=== PATIENT | female | born 1935 | race Caucasian/White ===

== ENCOUNTER 2017-10-21 08:59 | Inpatient (IN) | payer MEDICARE ==
[2017-10-21] MEDS ORDERED: Ketorolac Tromethamine 30 MG/ML VIAL ONE (09:28)
--- NOTE | 2017-10-21 09:36 | RAD ---
RIGHT KNEE 2 VIEWS: HISTORY: Trauma. COMPARISON: None. FINDINGS: Periprosthetic fracture of the distal femur with varus angulation and impaction comminution. The pro ximal tibia appears to be intact. IMPRESSION: Comminuted periprosthetic fracture of distal femur. POS: OFF
--- NOTE | 2017-10-21 09:51 | RAD ---
PORTABLE CHEST: Date: 10/21/17 Time: 0940 hours HISTORY: Preoperative evaluation for femur fracture. FINDINGS: Comparison made with exam of 10/14/16. The heart size is enlarged. The lungs are well expanded without confluent areas of consolidation, pne umothorax, sarina pulmonary edema, or pleural effusions. There is mild prominence of pulmonary vascula rity, which was also seen on the previous study. A left-sided humeral prosthesis is again seen. IMPRESSION: Cardiomegaly. POS: LIZBETH
[2017-10-21] MEDS ORDERED: CEFAZOLIN/Water 2 GM/20 ML SYRINGE SLOW IVP SCH (10:15)
[2017-10-21] MEDS ORDERED: Adacel (T-DAP) 0.5 ML VIAL ONE (10:22)
[2017-10-21 10:23] LABS: Hemoglobin 12.5 g/dL (12.0-16.0); Mean Corpuscular Hemoglobin 25.1 pg (27.0-31.0); Mean Corpuscular Volume 84.4 fl (81.0-99.0); Red Blood Cell (RBC) Count 4.97 mill/uL (4.20-5.40); White Blood Cell (WBC) Count 14.6 thou/uL (4.8-10.8)
--- NOTE | 2017-10-21 10:25 | CON ---
DATE OF CONSULTATION: 10/21/2017 CONSULTING PHYSICIAN: Dr. Gio Dowell HISTORY OF PRESENT ILLNESS: She is a very pleasant female who was in her normal state of health toda y when she slipped and states she decided to kiss the floor. She denies any loss of consciousness, b ut sustained a right femur periprosthetic fracture. The pain is significant. She has no loss of sen sations in either extremity, but was unable to move after the fall. She was brought to the ER for th e above stated fracture. She is in mild distress right now due to pain, but has no other complaints of chest pain or shortness breath. She denies hitting her head and remembers the whole incident. PAST MEDICAL HISTORY: Positive for COPD, GERD, high cholesterol, hypertension and some mild chronic pain issues. ALLERGIES: FENTANYL, HYDROCODONE, MORPHINE, possibly TYLENOL. CURRENT MEDICATIONS: Aspirin, atorvastatin, Symbicort, clonidine, Colace, Lasix, hydralazine, hydroc hlorothiazide, lisinopril, metoprolol, multivitamin, Protonix, Klor-Con, omega 3 fatty acid/fish oil and other multivitamins. SOCIAL HISTORY: , nonsmoker, nondrinker, no illicit drug use. PAST SURGICAL HISTORY: Shoulder replacement, knee replacement, ankle fracture repair and also some s kin cancer lesions removed from the face. FAMILY HISTORY: Noncontributory. REVIEW OF SYSTEMS: Currently in no acute distress in regards to breathing or any chest pain. Compla ins of right leg pain. The rest of review of systems is negative. PHYSICAL EXAMINATION: GENERAL: Well-nourished female, alert, in moderate distress. Speech clear. Answers questions appro priately. Alert and oriented x3. HEENT: Normal exam. Currently, has O2 on. Face is symmetric. Tongue midline. NECK: Supple. Trachea midline. EXTREMITIES: Moving bilateral upper extremities well. Some bruising seen to the arms. Lower extrem ities; she does have a little bit of swelling to the right leg, but she has good sensations on bilate ral lower extremities. DP, PT pulses are intact. She is able to move that right lower extremity oka y, but it is quite painful in doing so. ASSESSMENT: Fall with a periprosthetic fracture to the right femur. PLAN: I spoke with the patient. She will need a femoral plate placed to align stabilize the fractur e. She understands the surgery and the risks and benefits as they have been explained and is amenabl e to go forth with surgery. She has seen Dr. Dowell in the past and would prefer him to do the surge ry. I have discussed with Dr. Dowell and he is able to add her on this afternoon. Her current n.p.o . status is from last night. She has just had a few sips with meds today. We will get the patient c onsented for surgery and antibiotics on board, get her fixed up today. Again she is agreeable with t he plan as it has been stated.
[2017-10-21 10:31] LABS: Anion Gap 12 mmol/L (10-20); BUN (Urea Nitrogen) 11 mg/dL (9.8-20.1); Calc. Creatinine Clearance 0 mL/min (70-130); Calcium 9.5 mg/dL (7.8-10.44); Carbon Dioxide 30 mmol/L (23-31); Chloride 103 mmol/L (98-107); Estimated GFR-MDRD Greater than 90; Glucose 134 mg/dL (83-110); Potassium 3.9 mmol/L (3.5-5.1); Sodium 141 mmol/L (136-145)
[2017-10-21 10:39] LABS: #Basophils 0.1 thou/uL (0.0-0.2); #Eosinphils 0.1 thou/uL (0.0-0.7); #Neutrophils 11.5 thou/uL (1.40-6.50); %Basophils 0.5 % (0.0-1.0); %Eosinophils 0.9 % (0.0-10.0); %Lymphocytes 13.8 % (21.0-51.0); %Monocytes 6.5 % (0.0-10.0); %Neutrophils 78.4 % (42.0-75.0); Anisocytosis SLIGHT = 6-15 cells (100X) (0-5/hpf); MDiff Complete? YES; Mean Corpuscular HGB CONC 29.8 g/dL (32.0-36.0); Mean Platelet Volume 9.1 fL (7.4-10.4); Platelet Count 231 thou/uL (130-400); RBC Distribution Width 16.1 % (11.5-14.5)
[2017-10-21] MEDS ORDERED: CEFAZOLIN/Water 2 GM/20 ML SYRINGE ONE (11:16)
--- NOTE | 2017-10-21 11:56 | HP ---
DATE OF ADMISSION: 10/21/2017 ADMITTING PHYSICIAN: John Guerra D.O. CONSULTING PHYSICIAN: Gio Dowell M.D. HISTORY OF PRESENT ILLNESS: Ms. Mauro is an 82-year-old female who was outside of her home and slipped down a ramp this morning. She complained of right knee pain and an abrasion on her right hand. She denied hitting her head or having LOC. She denied any other pain. She was transported to [facility] where workup in the ER identified a right femur periprosthetic fracture. She had a prior right knee surgery by Dr. Dowell. She has been hemodynamically stable and neurovascularly intact in all extremities. PAST MEDICAL HISTORY: COPD, GERD, high cholesterol, hypertension, chronic pain. PAST SURGICAL HISTORY: Right knee replacement, left shoulder replacement, facial skin cancer removal. SOCIAL HISTORY: Patient denies alcohol, drug or tobacco use. ALLERGIES: The patient is . LABORATORY DATA: Hematology: WBC 14.6, RBC 4.97, hemoglobin 12.5, hematocrit 41.9, platelets 231. Chemistry: Sodium 141, potassium 3.9, chloride 103, carbon dioxide 30, BUN 11, creatinine 0.60, glucose 134. DIAGNOSTIC IMAGING: Right knee x-ray comminuted periprosthetic fracture of the right knee. REVIEW OF SYSTEMS: General: No complaints of recent weight loss, chills, fever. HEENT: No complaints. Respiratory: Denies shortness of breath, cough. Cardiovascular: Denies chest pain, palpitations. Abdomen: Denies nausea, vomiting, diarrhea or constipation. Extremities: Complains of right knee pain. Neurologic: Denies headache, dizziness, weakness or sensory deficit. Skin: Denies rashes or any other changes to skin. Psychiatric: Denies any problems. PHYSICAL EXAMINATION: GENERAL: Well-nourished, well-developed female in no acute distress. HEENT: Normocephalic, atraumatic. Trachea midline. NECK: No neck tenderness. PULMONARY: Bilateral breath sounds clear. No respiratory distress. CARDIOVASCULAR: Regular rate and rhythm. Heart sounds normal. ABDOMEN: Soft, nontender, nondistended. EXTREMITIES: Bilateral upper extremities neurovascularly intact. NEUROLOGIC: Cap refill brisk in bilateral lower extremities. Neurovascularly intact. Pain with palpation or movement to right knee. Mild edema around the right knee. SKIN: No trauma noted. ASSESSMENT AND PLAN: 1. Status post ground level fall. 2. Right periprosthetic distal femur fracture. 3. Acute traumatic pain. 4. Hypertension. 5. Chronic obstructive pulmonary disease. PLAN: 1. Patient has been seen by Dr. Dowell and we will proceed from ER to OR for fixation of fracture. 2. Admit to surgical floor postoperatively. 3. Antibiotics per Orthopedic Service. 4. Deep venous thrombosis prophylaxis when okay with Orthopedic Service. 5. Oral analgesia with IV for breakthrough pain p.r.n. 6. Peptic ulcer prophylaxis. 7. PT, OT evaluation postoperatively with orthopedic restrictions. 8. Restart home antihypertensive medications when appropriate postoperatively. 9. Plan discussed with the patient and family. The patient was seen and examined with Dr. Guerra, attending trauma surgeon, who agrees with the assessment and plan. This is Jessica Simental, nurse practitioner dictating history and physical for Dr. John Guerra. [facility]
[2017-10-21] MEDS ORDERED: ePHEDrine/0.9% NaCl/PF SYRINGE 50 mg/10 ml ONE (12:18)
[2017-10-21] MEDS ORDERED: Glycopyrrolate 0.2 MG/ML 5 ML SYRINGE ONE (12:18)
[2017-10-21] MEDS ORDERED: Propofol 200 MG/20 ML VIAL ONE (12:18)
[2017-10-21] MEDS ORDERED: Lidocaine 1% PF 5 ML VIAL ONE (12:18)
[2017-10-21] MEDS ORDERED: Nitroglycerin 2% Ointment 1 INCH/1 GM Packet ONE (12:29)
--- NOTE | 2017-10-21 13:50 | OP ---
PREOPERATIVE DIAGNOSIS: Supracondylar femur fracture. POSTOPERATIVE DIAGNOSIS: Supracondylar femur fracture. SURGEON: Gio Dowell M.D. DIVIDEND CLERK: Amparo. BLOOD LOSS: 200 mL SPECIMEN: None. DRAINS: None. COMPLICATIONS: None. IMPLANTS USED: Synthes distal femur variable angle locking plate. DESCRIPTION OF PROCEDURE: The patient taken to the operating room where general anesthesia was induc ed. She received Ancef 2 grams prior to beginning the operation. The right leg was prepped and drap ed in usual sterile fashion. The incision was made laterally and dissection carried down the knee sindhu int. The knee joint was irrigated with hematoma and the fracture was reduced as well as could be don e, there was severe comminution on the entire distal femur. I placed a 14-hole Synthes variable angl e locking plate along the femur and checked on biplane fluoroscopy. Set the distal screw to hold the plate to the distal femur. Then I applied traction, rotation and placed a proximal screw set rotati on and length. I then placed a total of 4 screws in the femoral shaft. I filled all of the screws e xcept for one on the distal locking portion. The first screw was a conical screw to compress the dis hernando femur against the plate. X-rays were obtained, which showed appropriate reduction. Irrigation w as performed. Fascia repaired with #2 Vicryl and #2 Quill, subcutaneous closed with 0 Quill, skin wa s closed with 2-0 Vicryl and bri and sterile dressings applied. There were no complications. Po stoperative plan is for her to be only 25% weightbearing and knee immobilizer for the next 2 months.
[2017-10-21] MEDS ORDERED: traMADol HCl 50 MG TAB PO PRN (14:05)
[2017-10-21] MEDS ORDERED: HYDROcodone/Acetaminophen 10/325 mg Tablet PO PRN ×2 (14:05)
[2017-10-21] MEDS ORDERED: Ondansetron HCl/PF 4 MG/2 ML Vial IV PRN (14:05)
[2017-10-21] MEDS ORDERED: Promethazine HCl 25 MG/ML VIAL IM PRN (14:14)
[2017-10-21] MEDS ORDERED: Promethazine HCl 25 MG/ML VIAL SLOW IVP PRN (14:14)
[2017-10-21] MEDS ORDERED: Ondansetron HCl/PF 4 MG/2 ML Vial IVP PRN (14:14)
[2017-10-21] MEDS ORDERED: TETANUS AND DIPHTHERIA TOX/PF 0.5 ML DISP.SYRIN IM SCH (14:15)
[2017-10-21] MEDS ORDERED: Communication Order-Pharmacy FS SCH (14:15)
--- NOTE | 2017-10-21 14:15 | RAD ---
RIGHT FEMUR 2 VIEWS: HISTORY: ORIF. COMPARISON: Knee radiographs the same day. FINDINGS: Lateral plate and screw fixation and distal femoral periprosthetic fracture is present. There are co rtical locking screws. IMPRESSION: Fluoroscopic images for surgical purposes. POS: OFF
[2017-10-21] MEDS ORDERED: cloNIDine 0.1 MG TAB PO PRN (17:54)
[2017-10-21] MEDS: Mometasone 100 MCG HFA INHALER INH SCH (18:57)
[2017-10-21] MEDS: CEFAZOLIN/Water 2 GM/20 ML SYRINGE SLOW IVP SCH (19:29)
--- NOTE | 2017-10-21 20:41 | CON ---
DATE OF CONSULTATION: 10/21/2017 ADMITTING PHYSICIAN: John Gurera DO CONSULTING PHYSICIAN: Gio Dowell M.D. REASON FOR CONSULT: Aid in medical management. HISTORY OF PRESENT ILLNESS: Ms. Mauro is a very pleasant 82-year-old female that has a history of hy pertension and COPD. The Hospitalist Service was asked to see the patient with regards to medical ma nagement. The patient says that she was on her way to see her primary care physician, Dr. Bhumi fong she slipped and fell on the pavement. She believes there was some ice there. She had severe pain in the right hip and leg after the fall and was unable to get up. She was brought to the hospital an d found to have a comminuted fracture of the distal femur. She has been admitted to the Trauma team and the patient was seen by Orthopedic Surgery and she underwent supracondylar femur fracture repair. When we were seeing her, she is postop and has some complaints of pain in the distal femur, but oth erwise is doing fine. She denies any chest pain or difficulty breathing, no abdominal pain, no nause a, no vomiting, etc. Her blood pressure is a little bit high, but she does admit that she is in agai n some discomfort. 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 PAST SURGICAL HISTORY: She has had a right total knee replacement, a skin cancer removed, left shoul aide replacement surgery. FAMILY HISTORY: Significant for COPD, ovarian cancer in her daughter. SOCIAL HISTORY: She is a nonsmoker. She lives in [place]. She lives with friends. She denies any alcohol use. ALLERGIES: FENTANYL and VICODIN. MEDICATIONS: These are still currently being reconciled. There were some medications listed in her electronic record, but some of which she says she is no longer taking like Symbicort. These will nee d to be reconciled and restarted as appropriate. PHYSICAL EXAMINATION: GENERAL: She is alert and oriented. She appears to be in no acute distress. VITAL SIGNS: Her blood pressure was approximately 156/60, heart rate in the 70s, respiratory rate of 16, and she is afebrile. HEENT: Pupils are equal, round, and reactive. Extraocular muscles are intact. Her sclerae are anic teric. Throat, no erythema, no exudates. NECK: No adenopathy, no bruits. LUNGS: Clear to auscultation. There is no wheezing, no rales. CARDIOVASCULAR: She has a normal S1, S2. I do not appreciate an S3 or S4. No murmurs, clicks or ru bs. ABDOMEN: Obese, it is soft, it is nontender, nondistended. Positive for bowel sounds. No rebound o r guarding. EXTREMITIES: There is no clubbing, cyanosis, no edema. NEUROLOGIC: The exam is grossly nonfocal. LABORATORY DATA: White blood cell count 14.6, hemoglobin 12.5, hematocrit is 41.9, platelet count is 231. Sodium 141, potassium 3.9, chloride is 103, CO2 is 30, BUN 11, creatinine 0.6, glucose is 134. ASSESSMENT AND PLAN: 1. This is an 82-year-old female that suffered an accidental fall resulting in a distal femur fractu re on the right. She has undergone surgery and so far is clinically stable. 2. For chronic obstructive pulmonary disease, we will continue her usual medications for chronic obs tructive pulmonary disease. One has already been verified and include Flovent inhaler and we will al so place her on DuoNeb as needed and encourage incentive spirometry. 3. For hypertension, we will need to restart her usual home medications and it appears she is taking clonidine in the past, so will use that p.r.n. as needed and restart her home medications. 4. Symptom control. The patient states an allergy to FENTANYL. It appears that she has been starte d on tramadol and we will leave this up to the primary team. 5. We will be happy to follow along with this very nice lady.
[2017-10-21] MEDS ORDERED: hydrALAZINE 25 MG TAB PO SCH (21:00)
[2017-10-21] MEDS ORDERED: cloNIDine 0.2 MG TAB PO SCH (21:00)
[2017-10-21] MEDS: Metoprolol Tartrate 100 MG TAB PO SCH (21:10)
[2017-10-21] MEDS: Lisinopril 20 MG TAB PO SCH (21:11)
[2017-10-21] MEDS: Atorvastatin Calcium 20 MG TAB PO SCH (21:11)
--- NOTE | 2017-10-22 00:50 | CON ---
DATE OF CONSULTATION: 10/21/2017 SERVICE: Pulmonary Medicine. REASON FOR CONSULTATION: Asthma. HISTORY OF PRESENT ILLNESS: The patient is an 82-year-old white female with past medical history significant for essentially nothing. She was in her usual state of health when she slipped in trip. She suffered a mechanical fall and ended up breaking her leg. She is postop day #0 from a fixation procedure. Before she fell, she was in her usual state of health from a breathing standpoint. She uses Flovent twice daily. She occasionally uses p.r.n. medication for her breathing. Outside of that, she has no respiratory discomforts. Since the fixation procedure, the patient's pain has been under excellent control. PAST MEDICAL HISTORY: 1. Osteoporosis. 2. Osteoarthritis of the back. 3. Asthma with chronic obstructive changes. 4. Hypertension. PAST SURGICAL HISTORY: 1. Right total knee replacement. 2. Supracondylar femur fracture repair. 3. Excision of skin cancer. 4. Left shoulder surgery replacement. SOCIAL HISTORY: Negative for alcohol, tobacco or illicit drug use. She lives in [place]. She has no exposure to chemicals, dust, asbestosis or tuberculosis. FAMILY HISTORY: Noncontributory. ALLERGIES: FENTANYL, VICODIN. MEDICATIONS: List of her inpatient medications were reviewed. We put her on Dulera and we will provide her with p.r.n. nebulized medications if necessary. REVIEW OF SYSTEMS: General, head, ears, eyes, nose, throat, cardiovascular, respiratory, GI, , musculoskeletal, neurologic and skin is negative except as mentioned in the HPI. PHYSICAL EXAMINATION: VITAL SIGNS: Afebrile, pulse 77, blood pressure 156/66, respirations 19, saturation 99% on 2 liters nasal cannula. GENERAL: The patient is awake and alert, in no apparent distress. LUNGS: Decent air entry. There is no hint of a prolonged expiratory phase or wheezing. There are no dependent crackles identified. HEART: Normal rate, regular. ABDOMEN: Soft, nontender, nondistended. Bowel sounds are positive. MUSCULOSKELETAL: No cyanosis or clubbing. There is trace 1+ pitting in the bilateral lower extremities. The right lower extremity is wrapped. GENITOURINARY: Wren catheter in place. NEUROLOGIC: Grossly nonfocal. LABORATORY DATA: WBC 14.6, hemoglobin 12.5, platelets 231,000. Basic metabolic profile is essentially unremarkable. IMAGING: CXR demonstrates interstitial fullness with enlarged heart. ASSESSMENT: 1. Asthma without acute exacerbation. 2. Acute hypoxic respiratory failure. 3. Leg fracture, status post open reduction with internal fixation, postop day #0. PLAN: We will put the patient on Dulera, this is on her formulary. When she is discharged from the hospital, she can go back to her Flovent. We will provide her with p.r.n. nebulized medications. Pulmonary Critical Care will continue to follow, but Dr. Iglesias will assume management in the morning. Please call with additional questions or concerns moving forward. Thank you for involving us in her care. 70 minutes have been devoted to this patient in various activities. I personally reviewed all imaging studies and laboratory data noted within this document. For at least half of this time, I was interacting with the patient at the bedside or coordinating care with the care team. For the remainder of the time I was immediately available to the patient in the hospital unit. JANELL
--- NOTE | 2017-10-22 03:07 | PRG ---
DATE OF SERVICE: 10/21/2017 SUBJECTIVE: This is an 82-year-old female who was outside of her home and slipped down a ramp this m orning, complained of right knee pain and abrasion on right hand, was found to have right periprosthe tic distal femur fracture. The patient is postop day #1 from ORIF of the right distal femur fracture, otherwise doing well. No new complaints of pain. OBJECTIVE: Vital signs have been reviewed and stable. Dressing noted on the right lower extremity, otherwise physical exam unremarkable. ASSESSMENT AND PLAN: Continue care as noted in history and physical. Reassessment and PT, OT. Cont inue to monitor. DISCHARGE DISPOSITION: Pending.
[2017-10-22] MEDS: CEFAZOLIN/Water 2 GM/20 ML SYRINGE SLOW IVP SCH ×2 (03:11→12:36)
[2017-10-22] MEDS: Acetaminophen 500 MG TAB PO PRN (03:11)
[2017-10-22 05:01] LABS: #Basophils 0.2 thou/uL (0.0-0.2); #Lymphocytes 1.2 thou/uL (1.20-3.40); #Monocytes 1.4 thou/uL (0.11-0.59); #Neutrophils 16.6 thou/uL (1.40-6.50); %Basophils 0.9 % (0.0-1.0); %Eosinophils 0.1 % (0.0-10.0); %Lymphocytes 6.1 % (21.0-51.0); %Monocytes 7.3 % (0.0-10.0); %Neutrophils 85.6 % (42.0-75.0); Hemoglobin 10.8 g/dL (12.0-16.0); Mean Corpuscular HGB CONC 30.7 g/dL (32.0-36.0); Mean Corpuscular Hemoglobin 25.5 pg (27.0-31.0); Mean Platelet Volume 9.2 fL (7.4-10.4); Platelet Count 225 thou/uL (130-400); RBC Distribution Width 16.1 % (11.5-14.5); Red Blood Cell (RBC) Count 4.24 mill/uL (4.20-5.40); White Blood Cell (WBC) Count 19.3 thou/uL (4.8-10.8)
[2017-10-22 05:12] LABS: ALT (SGPT) 8 U/L (8-55); AST (SGOT) 16 U/L (5-34); Albumin 3.4 g/dL (3.4-4.8); Alkaline Phosphatase 68 U/L (40-150); Anion Gap 10 mmol/L (10-20); BUN (Urea Nitrogen) 12 mg/dL (9.8-20.1); Bilirubin, Total 0.7 mg/dL (0.2-1.2); Calc. Creatinine Clearance 0 mL/min (70-130); Calcium 9.2 mg/dL (7.8-10.44); Carbon Dioxide 30 mmol/L (23-31); Chloride 104 mmol/L (98-107); Estimated GFR-MDRD 81; Globulin 2.4 g/dL (2.4-3.5); Glucose 165 mg/dL (83-110); Potassium 3.3 mmol/L (3.5-5.1); Protein, Total 5.8 g/dL (6.0-8.3); Sodium 141 mmol/L (136-145)
[2017-10-22] MEDS ORDERED: Mometasone/Formoterol 120 PUFF INHALER INH SCH (06:30)
[2017-10-22] MEDS: Mometasone 100 MCG HFA INHALER INH SCH ×2 (06:55→19:20)
[2017-10-22] MEDS: hydrALAZINE 25 MG TAB PO SCH ×3 (07:53→20:33)
[2017-10-22] MEDS: Lisinopril 20 MG TAB PO SCH ×2 (07:53→20:34)
[2017-10-22] MEDS: cloNIDine 0.2 MG TAB PO SCH ×3 (07:55→20:15)
[2017-10-22] MEDS: Metoprolol Tartrate 100 MG TAB PO SCH ×2 (07:56→20:34)
[2017-10-22] MEDS: Enoxaparin Sodium 40 MG/0.4 ML SYRINGE SC SCH (07:56)
[2017-10-22] MEDS ORDERED: Potassium Chloride 20 MEQ TAB PO SCH (08:15)
[2017-10-22] MEDS: Ibuprofen 200 MG TAB PO SCH ×3 (09:48→20:33)
--- NOTE | 2017-10-22 12:58 | PRG ---
DATE OF SERVICE: 10/22/2017 Ms. Mauro events have been reviewed. She is doing well perioperatively. She denies having any signi ficant complaints other than her post-surgical pain as expected. PHYSICAL EXAMINATION: VITAL SIGNS: She is afebrile, heart rate 72, respiratory rate is 18, oximetry is 93 on 3 liters, blo od pressure 139/65. LUNGS: Lungs are completely clear. HEART: Regular rhythm. ABDOMEN: Abdomen is soft and nontender. LABORATORY DATA: Hemoglobin is 10.8 today, 12.5 yesterday. White count 19.36, she has 225,000 plate lets, potassium 3.3. The remainder of electrolytes are normal. Glucose between 134 and 165 this mor amalia. IMPRESSION: 1. Chronic persistent asthma. 2. Deconditioning with obesity. 3. History of hypertension. 4. History of knee replacement. 5. History of a femur fracture in the past. This was internally fixed yesterday. She appears to be progressing slowly, but is doing well from a pulmonary standpoint.
[2017-10-22] MEDS ORDERED: Sodium Chloride 0.9% 500 ML IV SCH (15:30)
--- NOTE | 2017-10-22 15:36 | PDOC.PN ---
- Subjective Encounter Start Date: 10/22/17 Encounter Start Time: 15:34 Ms. Mauro was seen today in follow-up. She was noted to have a low blood pressure when I went in to see her. She denies feeling dizzy or weak, she denies any chest pain or shortness of breath. - Objective MAR Reviewed: Yes Vital Signs & Weight: Vital Signs (12 hours) Temp Pulse Resp BP BP Pulse Ox 10/22/17 15:31 84/52 L 10/22/17 12:36 139/65 10/22/17 11:20 98.3 F 72 18 139/65 93 L 10/22/17 07:55 121/57 L 10/22/17 07:53 110 H 121/57 L 10/22/17 07:20 98.2 F 105 H 24 H 121/57 L 92 L 10/22/17 06:57 102 H 16 95 10/22/17 06:55 102 H 16 95 10/22/17 04:30 98.7 F 98 19 150/72 H 92 L I&O: 10/21/17 10/22/17 10/23/17 06:59 06:59 06:59 Intake Total 860 Output Total 350 Balance 510 Result Diagrams: 10/22/17 04:33 10/22/17 04:33 Phys Exam - Physical Examination HEENT: PERRLA Respiratory: no wheezing Cardiovascular: RRR, no significant murmur Gastrointestinal: soft, non-tender, positive bowel sounds Musculoskeletal: no edema Dx/Plan (1) Femur fracture, right Code(s): S72.91XA - UNSP FRACTURE OF RIGHT FEMUR, INIT FOR CLOS FX Status: Acute (2) COPD exacerbation Code(s): J44.1 - CHRONIC OBSTRUCTIVE PULMONARY DISEASE W (ACUTE) EXACERBATION Status: Chronic (3) HTN (hypertension) Code(s): I10 - ESSENTIAL (PRIMARY) HYPERTENSION Status: Chronic Qualifiers: Comment: Stable, continue home BP regimen - Plan * Hypotension- I suspect this may be due to volume depletion- will give a 500 NS bolus and re-evaluate * COPD - stable * Continue PT/OT as tolerated.
--- NOTE | 2017-10-22 17:36 | PRG ---
DATE OF SERVICE: 10/22/2017 ATTENDING PHYSICIAN: John Guerra DO SUBJECTIVE: The patient is postoperative day #1 status post open reduction internal fixation right f emur fracture. OBJECTIVE: VITAL SIGNS: Temperature 98.3, pulse 72, blood pressure 139/65, respirations 18, O2 sat 93% room air . GENERAL: Elderly female lying in bed, in no acute distress. HEENT: Atraumatic, normocephalic. PULMONARY: Bilateral breath sounds clear. No respiratory distress. CARDIOVASCULAR: Regular rate and rhythm. Heart sounds normal. ABDOMEN: Soft, nontender, nondistended. EXTREMITIES: Moves all extremities. Cap refill brisk. Neurovascular intact all extremities. NEUROLOGIC: GCS of 15. PSYCHIATRIC: AO x3. LABORATORY DATA: WBC 19.3, hemoglobin 10.8 down from 12.5, hematocrit 35.2 down from 41.9, platelets 225. Chemistry: Sodium 141, potassium 3.3, chloride 104, carbon dioxide 30, BUN 12, creatinine 0.6 9, glucose 165. ASSESSMENT: 1. Status post ground level fall. 2. Status post open reduction internal fixation right distal femur fracture. 3. History of asthma, chronic obstructive pulmonary disease. 4. Hypertension. PLAN: 1. PT, OT with orthopedic restrictions. 2. Continue home medications for COPD per Pulmonology Service. 3. Hospital Medicine and Pulmonology following. 4. Case management for discharge planning. 5. Lovenox for DVT prophylaxis. 6. Protonix for PUD prophylaxis. 7. Pain has been managed with Tylenol per the patient's request. Tramadol as needed. The patient was seen and examined with Dr. Guerra, who agrees with the assessment and plan. This is Jessica Simental, nurse practitioner, dictating a daily progress note for Dr. John Guerra.
[2017-10-22 20:12] VITALS: BMI 36.6
[2017-10-22] MEDS: Atorvastatin Calcium 20 MG TAB PO SCH (20:33)
--- NOTE | 2017-10-22 21:26 | PRG ---
DATE OF SERVICE: 10/22/2017 SUBJECTIVE: The patient is an 82-year-old female status post ORIF of distal periprosthetic femur fra cture. No new complaints at this time. OBJECTIVE: VITAL SIGNS: Vital signs have been reviewed, somewhat hypotensive. We will continue to monitor. Baldev tejinder has been given by [facility] Medical Team. Physical exam were unremarkable. ASSESSMENT AND PLAN: Continue care as noted in the daily progress note. Continue to monitor. Disch arge disposition is pending.
[2017-10-23] MEDS: Ibuprofen 200 MG TAB PO SCH ×4 (03:06→21:45)
[2017-10-23] MEDS: Mometasone 100 MCG HFA INHALER INH SCH ×2 (08:25→18:57)
[2017-10-23] MEDS: Lisinopril 20 MG TAB PO SCH ×2 (09:42→20:27)
[2017-10-23] MEDS: hydrALAZINE 25 MG TAB PO SCH ×3 (09:42→20:28)
[2017-10-23] MEDS: Acetaminophen 500 MG TAB PO PRN (09:42)
[2017-10-23] MEDS: Metoprolol Tartrate 100 MG TAB PO SCH ×2 (09:42→20:28)
[2017-10-23] MEDS: cloNIDine 0.2 MG TAB PO SCH ×3 (09:42→17:33)
[2017-10-23] MEDS: Enoxaparin Sodium 40 MG/0.4 ML SYRINGE SC SCH (09:45)
--- NOTE | 2017-10-23 09:55 | PDOC.PN ---
- Subjective Encounter Start Date: 10/23/17 Encounter Start Time: 09:53 Ms. Mauro says she is feeling fine this morning, only a bit of soreness in the leg where she had surgery. She denies trouble breathing or chest pain. - Objective MAR Reviewed: Yes Vital Signs & Weight: Vital Signs (12 hours) Temp Pulse Resp BP Pulse Ox 10/23/17 08:00 98.0 F 74 20 142/64 H 94 L 10/23/17 07:20 16 97 10/23/17 07:19 67 16 97 10/23/17 04:53 98.1 F 62 19 122/60 92 L 10/23/17 03:56 99 10/23/17 00:00 98.1 F 60 18 133/62 96 Weight Weight 200 lb I&O: 10/22/17 10/23/17 10/24/17 06:59 06:59 06:59 Intake Total 860 2150 Output Total 350 925 300 Balance 510 1225 -300 Result Diagrams: 10/22/17 04:33 10/22/17 04:33 Phys Exam - Physical Examination HEENT: PERRLA Respiratory: no wheezing, no rales, no rhonchi, clear to auscultation bilateral Cardiovascular: RRR, no significant murmur Gastrointestinal: soft, non-tender, positive bowel sounds Musculoskeletal: no edema Dx/Plan (1) Femur fracture, right Code(s): S72.91XA - UNSP FRACTURE OF RIGHT FEMUR, INIT FOR CLOS FX Status: Acute (2) COPD exacerbation Code(s): J44.1 - CHRONIC OBSTRUCTIVE PULMONARY DISEASE W (ACUTE) EXACERBATION Status: Chronic (3) HTN (hypertension) Code(s): I10 - ESSENTIAL (PRIMARY) HYPERTENSION Status: Chronic Qualifiers: Comment: Stable, continue home BP regimen - Plan * Hypotension- resolved * Chronic persistent Asthma- stable * HTN- blood pressure is in an acceptable range * Continue PT/OT.
[2017-10-23 10:16] LABS: #Basophils 0.1 thou/uL (0.0-0.2); #Eosinphils 0.1 thou/uL (0.0-0.7); #Lymphocytes 2.6 thou/uL (1.20-3.40); #Monocytes 1.3 thou/uL (0.11-0.59); #Neutrophils 11.7 thou/uL (1.40-6.50); %Basophils 0.5 % (0.0-1.0); %Eosinophils 0.7 % (0.0-10.0); %Lymphocytes 16.2 % (21.0-51.0); %Monocytes 8.2 % (0.0-10.0); %Neutrophils 74.4 % (42.0-75.0); Mean Corpuscular HGB CONC 30.8 g/dL (32.0-36.0); Mean Corpuscular Hemoglobin 26.1 pg (27.0-31.0); Mean Corpuscular Volume 84.6 fl (81.0-99.0); Mean Platelet Volume 9.2 fL (7.4-10.4); Platelet Count 170 thou/uL (130-400); RBC Distribution Width 15.7 % (11.5-14.5); Red Blood Cell (RBC) Count 3.46 mill/uL (4.20-5.40); White Blood Cell (WBC) Count 15.8 thou/uL (4.8-10.8)
--- NOTE | 2017-10-23 13:33 | PRG ---
DATE OF SERVICE: 10/23/2017 SUBJECTIVE: The patient of Dr. Iglesias. She is doing well. Denies any cough. No shortness of breath . LABORATORY DATA: White count 15,000 OBJECTIVE: VITAL SIGNS: Sats on room air 88% on 2 liters, temperature 98.4, blood pressure 90/50, respirations 18. CHEST: Decreased breath sounds, no wheezing. CARDIAC: Normal S1. IMPRESSION: Chronic obstructive pulmonary disease, stable. PLAN: Continue neb treatments, Asmanex, supportive care. We will follow.
--- NOTE | 2017-10-23 16:26 | PRG ---
DATE OF SERVICE: 10/23/2017 ATTENDING PHYSICIAN: Dr. John Guerra. SUBJECTIVE: Ms. Mauro is postoperative day #2, status post ORIF. She had some postoperative nausea; however, overnight that improved. She does not complain of any nausea today. She is seen this morn ing and states pain is well controlled. There have been no other complaints. OBJECTIVE: VITAL SIGNS: Temperature 98.0, pulse 74, respirations 20, O2 saturation 94% on room air, blood press ure 136/58. GENERAL: Elderly female lying in bed in no acute distress. HEENT: Atraumatic, normocephalic. PULMONARY: Bilateral breath sounds clear. No respiratory distress. She is pulling approximately 10 00 mL on incentive spirometer. CARDIOVASCULAR: Regular rate and rhythm. Heart sounds normal. ABDOMEN: Soft, nontender, nondistended. EXTREMITIES: Moves all extremities. Cap refill brisk. Neurovascularly intact. Right lower extremi ty with knee immobilizer. NEUROLOGIC: GCS 15. A and O x3. LABORATORY DATA: WBC 15.8 down from 19.3 yesterday, hemoglobin 9.0 from 10.8 yesterday, hematocrit 2 9.3, platelets 170. ASSESSMENT: 1. Status post ground level fall. 2. Status post open reduction and internal fixation of right distal femur fracture. 3. History of asthma, chronic obstructive pulmonary disease. 4. History of hypertension. PLAN: 1. Continue PT/OT with orthopedic restrictions. 2. Pulmonology and hospital medicine following. Appreciate recommendations. 3. Case management following for discharge planning. Anticipate rehab or SNF early next week. 4. Lovenox for DVT prophylaxis. 5. Protonix for PUD prophylaxis. 6. Pain continues to be managed with Tylenol per patient's request. The patient was seen and examined with Dr. Guerra who agrees with assessment and plan. This is Jessica Simental, nurse practitioner dictating a daily progress note for Dr. John Guerra.
[2017-10-23] MEDS: Atorvastatin Calcium 20 MG TAB PO SCH (20:28)
[2017-10-24] MEDS: Ibuprofen 200 MG TAB PO SCH ×5 (00:02→21:15)
--- NOTE | 2017-10-24 00:47 | PRG ---
DATE OF SERVICE: 10/23/2017 SUBJECTIVE: This is an 82-year-old female status post fall with fracture of legs. She is postop day #2. OBJECTIVE: VITAL SIGNS: Vital signs are reviewed otherwise stable. Physical exams were changed. ASSESSMENT AND PLAN: Continue care as noted, dictating in daily progress note. Continue to monitor. Discharge disposition is pending.
[2017-10-24] MEDS: Mometasone 100 MCG HFA INHALER INH SCH ×2 (06:59→19:05)
[2017-10-24 08:13] LABS: #Basophils 0.1 thou/uL (0.0-0.2); #Eosinphils 0.1 thou/uL (0.0-0.7); #Lymphocytes 1.8 thou/uL (1.20-3.40); #Monocytes 1.4 thou/uL (0.11-0.59); #Neutrophils 15.8 thou/uL (1.40-6.50); %Basophils 0.3 % (0.0-1.0); %Eosinophils 0.3 % (0.0-10.0); %Lymphocytes 9.5 % (21.0-51.0); %Monocytes 7.3 % (0.0-10.0); %Neutrophils 82.6 % (42.0-75.0); Hemoglobin 8.5 g/dL (12.0-16.0); Mean Corpuscular HGB CONC 30.6 g/dL (32.0-36.0); Mean Corpuscular Hemoglobin 26.1 pg (27.0-31.0); Mean Corpuscular Volume 85.6 fl (81.0-99.0); Mean Platelet Volume 9.4 fL (7.4-10.4); Platelet Count 184 thou/uL (130-400); Red Blood Cell (RBC) Count 3.24 mill/uL (4.20-5.40); White Blood Cell (WBC) Count 19.2 thou/uL (4.8-10.8)
[2017-10-24 08:31] LABS: Anion Gap 6 mmol/L (10-20); BUN (Urea Nitrogen) 14 mg/dL (9.8-20.1); Calc. Creatinine Clearance 104 mL/min (70-130); Carbon Dioxide 34 mmol/L (23-31); Chloride 104 mmol/L (98-107); Estimated GFR-MDRD Greater than 90; Glucose 169 mg/dL (83-110); Magnesium 1.9 mg/dL (1.6-2.6); Potassium 4.4 mmol/L (3.5-5.1); Sodium 140 mmol/L (136-145)
[2017-10-24 08:54] LABS: Phosphorus 1.8 mg/dL (2.3-4.7)
[2017-10-24] MEDS: cloNIDine 0.2 MG TAB PO SCH ×3 (09:12→17:28)
[2017-10-24] MEDS: Lisinopril 20 MG TAB PO SCH ×2 (09:13→21:14)
[2017-10-24] MEDS: Metoprolol Tartrate 100 MG TAB PO SCH ×2 (09:13→21:13)
[2017-10-24] MEDS: Enoxaparin Sodium 40 MG/0.4 ML SYRINGE SC SCH (09:14)
[2017-10-24] MEDS: hydrALAZINE 25 MG TAB PO SCH ×3 (09:14→21:15)
--- NOTE | 2017-10-24 10:15 | PDOC.PN ---
- Subjective Encounter Start Date: 10/24/17 Encounter Start Time: 10:14 Ms. Mauro was seen today in follow-up. She says she feels a bit sleepy this morning. She denies feeling short of breath. She has been using the incentive spirometry, but has not edwin able to get it above 500ml. - Objective MAR Reviewed: Yes Vital Signs & Weight: Vital Signs (12 hours) Temp Pulse Resp BP BP Pulse Ox 10/24/17 09:14 97 135/66 10/24/17 09:13 135/66 10/24/17 09:12 135/66 10/24/17 09:03 98.9 F 97 20 135/66 92 L 10/24/17 07:01 99 24 H 93 L 10/24/17 06:59 99 24 H 93 L 10/24/17 04:38 98.9 F 73 16 115/56 L 94 L 10/24/17 00:00 98.7 F 104 H 18 149/67 H 90 L Weight Weight 200 lb I&O: 10/23/17 10/24/17 10/25/17 06:59 06:59 06:59 Intake Total 2150 500 Output Total 925 300 Balance 1225 200 Result Diagrams: 10/24/17 08:00 10/24/17 08:00 Phys Exam - Physical Examination HEENT: PERRLA Respiratory: no wheezing, no rales, no rhonchi, clear to auscultation bilateral Cardiovascular: RRR, no significant murmur, no rub Gastrointestinal: soft, non-tender, positive bowel sounds Musculoskeletal: edema present trace pedal edema Dx/Plan (1) Leukocytosis Code(s): D72.829 - ELEVATED WHITE BLOOD CELL COUNT, UNSPECIFIED Status: Acute (2) Femur fracture, right Code(s): S72.91XA - UNSP FRACTURE OF RIGHT FEMUR, INIT FOR CLOS FX Status: Acute (3) COPD exacerbation Code(s): J44.1 - CHRONIC OBSTRUCTIVE PULMONARY DISEASE W (ACUTE) EXACERBATION Status: Chronic (4) HTN (hypertension) Code(s): I10 - ESSENTIAL (PRIMARY) HYPERTENSION Status: Chronic Qualifiers: Comment: Stable, continue home BP regimen - Plan * Leukocytosis- ? etiology- may be stress from surgery, possibly atelectasis- will check a CXR, and UA. * Chronic Persistent Asthma- stable * HTN- blood pressure has been stable * Encourage Incentive Spirometry * PT/OT as tolerated
[2017-10-24] MEDS: K-Phos Neutral 250 MG TAB PO SCH ×2 (12:17→17:32)
[2017-10-24] MEDS ORDERED: Furosemide 20 MG TAB PO SCH (13:30)
--- NOTE | 2017-10-24 14:35 | PRG ---
DATE OF SERVICE: 10/24/2017 SUBJECTIVE: This morning, awake, alert, responsive. No pain. No shortness of breath. OBJECTIVE: VITAL SIGNS: Blood pressure 135/66, sats are 92% on 3 liters, temperature is 98. CHEST: No wheezing or crackles. CARDIAC: Normal S1. LABORATORY DATA: White count 9, H and H 8 and 27. Platelet counts are normal. Electrolytes are nor mal. IMPRESSION: 1. Acute on chronic respiratory failure. 2. Chronic obstructive pulmonary disease exacerbation. PLAN: Continue neb treatments, supportive care. We will follow.
--- NOTE | 2017-10-24 17:08 | PRG ---
DATE OF SERVICE: 10/24/2017 ATTENDING PHYSICIAN: Dr. John Guerra. SUBJECTIVE: Ms. Mauro is postoperative day #3, status post open reduction and internal fixation righ t distal femur. She was given gentle diuresis yesterday with and weaned from the amount of O2 she wa s receiving. This morning she was seen by Internal Medicine, who has ordered a UA and chest x-ray se condary to increasing white blood cell count. Ms. Mauro states that pain is well controlled. OBJECTIVE: VITAL SIGNS: Temperature 98.9, pulse 97%, respirations 20, O2 sat 92% on 3 liters, blood pressure 13 5/66. GENERAL: Elderly female lying in bed, in no acute distress. HEENT: Atraumatic, normocephalic. PULMONARY: Bilateral breath sounds clear. No respiratory distress. She is pulling 500-1000 mL on i ncentive spirometer. CARDIOVASCULAR: Regular rate and rhythm. Heart sounds normal. ABDOMEN: Soft, nontender, nondistended. EXTREMITIES: Moves all extremities. Cap refill brisk. Neurovascularly intact. Knee immobilizer to the right lower extremity. NEUROLOGIC: GCS 15, alert and oriented x3. LABORATORY DATA: CBC: WBC 19.2 up from 15.8 yesterday, RBC 3.24, hemoglobin 8.25, hematocrit 27.8, platelets 184. Ch emistry: Sodium 140, potassium 4.4, chloride 104, carbon dioxide 34, BUN 14, creatinine 0.60, glucos e is 169. ASSESSMENT: 1. Status post ground level fall. 2. Status post open reduction and internal fixation right distal femur fracture. 3. Leukocytosis. 4. History of asthma, chronic obstructive pulmonary disease. 5. History of hypertension. 6. Hyperglycemia. PLAN: 1. Continue PT, OT with orthopedic restrictions. 2. Pulmonology and hospital medicine following, I appreciate recommendations. 3. Monitor UA and chest x-ray. 4. Begin low dose sliding scale insulin. 5. Lovenox for deep venous thrombosis prophylaxis. 6. Protonix for PUD prophylaxis. 7. Anticipate rehab or SNF early next week. 8. Pain continued to be managed with Tylenol. 9. We will give 20 mg Lasix p.o. today for additional diuresis. The patient was seen and examined with Dr. Guerra who agrees with the assessment and plan. Jessica Simental NP, dictating for John Guerra, DO
[2017-10-24] MEDS: Atorvastatin Calcium 20 MG TAB PO SCH (21:15)
--- NOTE | 2017-10-25 02:38 | PRG ---
DATE OF SERVICE: 10/24/2017 SUBJECTIVE: No acute complaints at this time. The patient is doing well. She is postop day 3 from ORIF of the lower leg fracture. Status post ground level fall. OBJECTIVE: VITAL SIGNS: Vital signs have been reviewed. Blood pressure seems to be somewhat labile while in th e afternoon and in morning, will continue to monitor. Physical exam unremarkable otherwise stated in the daily progress note. ASSESSMENT AND PLAN: Continue care as detailed in the daily progress note. Continue to monitor. DISCHARGE DISPOSITION: Pending.
[2017-10-25] MEDS: Ibuprofen 200 MG TAB PO SCH ×4 (03:49→21:15)
[2017-10-25 04:36] LABS: #Eosinphils 0.3 thou/uL (0.0-0.7); #Lymphocytes 1.8 thou/uL (1.20-3.40); #Monocytes 1.4 thou/uL (0.11-0.59); #Neutrophils 10.1 thou/uL (1.40-6.50); %Basophils 0.3 % (0.0-1.0); %Lymphocytes 13.5 % (21.0-51.0); %Monocytes 10.1 % (0.0-10.0); %Neutrophils 74.1 % (42.0-75.0); Hemoglobin 8.2 g/dL (12.0-16.0); Mean Corpuscular HGB CONC 30.6 g/dL (32.0-36.0); Mean Corpuscular Hemoglobin 26.2 pg (27.0-31.0); Mean Corpuscular Volume 85.6 fl (81.0-99.0); Mean Platelet Volume 9.5 fL (7.4-10.4); Platelet Count 171 thou/uL (130-400); RBC Distribution Width 15.9 % (11.5-14.5); Red Blood Cell (RBC) Count 3.12 mill/uL (4.20-5.40); White Blood Cell (WBC) Count 13.6 thou/uL (4.8-10.8)
[2017-10-25] MEDS: Mometasone 100 MCG HFA INHALER INH SCH ×2 (06:40→19:36)
[2017-10-25] MEDS: Senokot S 8.6-50 MG TAB PO SCH ×2 (09:08→21:14)
[2017-10-25] MEDS: Metoprolol Tartrate 100 MG TAB PO SCH ×2 (09:08→21:14)
[2017-10-25] MEDS: Enoxaparin Sodium 40 MG/0.4 ML SYRINGE SC SCH (09:08)
[2017-10-25] MEDS: Polyethylene Glycol 3350 17 GM Packet PO SCH (09:08)
[2017-10-25] MEDS: cloNIDine 0.2 MG TAB PO SCH ×3 (09:09→16:47)
[2017-10-25] MEDS: Lisinopril 20 MG TAB PO SCH ×2 (09:09→21:16)
[2017-10-25] MEDS: hydrALAZINE 25 MG TAB PO SCH ×3 (09:10→21:14)
[2017-10-25] MEDS: K-Phos Neutral 250 MG TAB PO SCH ×3 (09:10→16:47)
[2017-10-25 11:34] LABS: Anion Gap 7 mmol/L (10-20); BUN (Urea Nitrogen) 17 mg/dL (9.8-20.1); Calc. Creatinine Clearance 119 mL/min (70-130); Calcium 8.9 mg/dL (7.8-10.44); Carbon Dioxide 36 mmol/L (23-31); Chloride 105 mmol/L (98-107); Estimated GFR-MDRD Greater than 90; Glucose 149 mg/dL (83-110); Magnesium 1.8 mg/dL (1.6-2.6); Phosphorus 2.6 mg/dL (2.3-4.7); Potassium 4.4 mmol/L (3.5-5.1); Sodium 144 mmol/L (136-145)
--- NOTE | 2017-10-25 13:23 | PDOC.PN ---
- Subjective Encounter Start Date: 10/25/17 Encounter Start Time: 13:21 Ms. Mauro was seen today in follow-up. She does not have any complaints. - Objective MAR Reviewed: Yes Vital Signs & Weight: Vital Signs (12 hours) Temp Pulse Resp BP BP Pulse Ox 10/25/17 12:00 98.7 F 74 16 124/74 92 L 10/25/17 11:51 124/74 10/25/17 09:10 98 164/86 H 10/25/17 09:09 164/86 H 10/25/17 08:30 98.5 F 98 14 92 L 10/25/17 08:00 98.5 F 98 14 164/86 H 92 L 10/25/17 06:40 86 16 93 L 10/25/17 06:38 86 16 93 L 10/25/17 04:00 98 F 81 18 141/81 H 91 L Weight Weight 200 lb I&O: 10/24/17 10/25/17 10/26/17 06:59 06:59 06:59 Intake Total 500 480 Output Total 300 Balance 200 480 Result Diagrams: 10/25/17 04:03 10/25/17 10:55 Phys Exam - Physical Examination HEENT: PERRLA Respiratory: no wheezing, no rales, no rhonchi, clear to auscultation bilateral Cardiovascular: RRR, no significant murmur, no rub Gastrointestinal: soft, non-tender, positive bowel sounds Musculoskeletal: no edema Dx/Plan (1) Leukocytosis Code(s): D72.829 - ELEVATED WHITE BLOOD CELL COUNT, UNSPECIFIED Status: Acute (2) Femur fracture, right Code(s): S72.91XA - UNSP FRACTURE OF RIGHT FEMUR, INIT FOR CLOS FX Status: Acute (3) COPD exacerbation Code(s): J44.1 - CHRONIC OBSTRUCTIVE PULMONARY DISEASE W (ACUTE) EXACERBATION Status: Chronic (4) HTN (hypertension) Code(s): I10 - ESSENTIAL (PRIMARY) HYPERTENSION Status: Chronic Qualifiers: Comment: Stable, continue home BP regimen - Plan * Leukocytosis- improved, will follow-up with CXR and UA * HTN- blood pressure is stable overall * COPD- stable * Continue to encourage incentive spirometry.
--- NOTE | 2017-10-25 15:10 | RAD ---
ONE VIEW CHEST: COMPARISON: 10/21/17. HISTORY: Leukocytosis. FINDINGS: Increased interstitial and alveolar opacities throughout the lung parenchyma, worrisome for multifoca l infiltrate. Costophrenic angles are clear. No pneumothorax. Normal cardiac silhouette. IMPRESSION: Worsening interstitial and alveolar infiltrates. Continued surveillance. POS: [facility]
--- NOTE | 2017-10-25 16:20 | PRG ---
DATE OF SERVICE: 10/25/2017 ATTENDING PHYSICIAN: John Guerra DO SUBJECTIVE: Ms. Mauro is an 82-year-old female who suffered a right periprosthetic femur fracture af ter suffering a ground level fall at home. She is now postop day #4 status post open reduction inter nal fixation of her right distal femur. She has been getting gentle diuresis along with O2 supplemen tation for acute respiratory failure with underlying COPD. She has also had an elevated white blood cell count; however, this seems to be greatly improved this morning. She currently voices no complai nts. OBJECTIVE: VITAL SIGNS: BP 164/86, pulse 98, temperature 98.5, respirations 14, O2 sat 92% on 2 liters nasal ca nnula. GENERAL: Elderly female lying in bed, in no acute distress. HEENT: Normocephalic, atraumatic. PULMONARY: Breath sounds are clear to auscultation bilaterally with normal effort. No signs of resp iratory distress. She is on 2 liters nasal cannula. CARDIOVASCULAR: She has a regular rate and rhythm. Normal S1 and S2. EXTREMITIES: She is neurovascularly intact x4. She has a knee immobilizer on the right lower extrem ity. NEUROLOGIC: She is alert and oriented x3. LABORATORY DATA: Hematology: WBC 13.6, hemoglobin 8.2, hematocrit 26.7, platelets 171. Chemistry: Sodium 144, potassium 4.4, chloride 105, bicarbonate 36, BUN 17, creatinine 0.52, glucose 149. RADIOGRAPHIC FINDINGS: There are no radiographs to review today. ASSESSMENT: 1. Status post ground level fall. 2. Right distal periprosthetic femur fracture, status post open reduction internal fixation. 3. Leukocytosis, resolving. 4. History of asthma without acute exacerbation. 5. History of chronic obstructive pulmonary disease. PLAN: 1. Continue neb treatments and O2 supplementation to keep sats greater than 92%. 2. Continue PT and OT with orthopedic restrictions. 3. Pulmonology and medicine following, appreciate recommendations. 4. Continue Lovenox for DVT prophylaxis. 5. Continue Protonix for PUD prophylaxis. 6. Patient has been approved for inpatient rehab, but there are no female beds available today. We will plan for transfer tomorrow if medically stable. This patient was seen and examined along with Dr. John Guerra who agrees with above plan and treatm ent.
--- NOTE | 2017-10-25 19:06 | PDOC.EVN ---
Event Note - Event Note Event Note: Chest X-ray results noted. She was found to have Multi-focal infiltrates. Will start Levaquin. UA is still pending
--- NOTE | 2017-10-25 19:54 | PRG ---
DATE OF SERVICE: 10/25/2017 SUBJECTIVE: Ms. Mauro has no complaints. She says she is feeling well. She is breathing fine. OBJECTIVE: VITAL SIGNS: She is afebrile, heart rate 74, blood pressure 124/74, respiratory rate is 18, oximetry is 95% on room air. LUNGS: Clear. IMPRESSION: Chronic obstructive pulmonary disease, clinically stable. Apparently, a chest x-ray was ordered this afternoon. I was not notified of this. The radiograph shows infiltrates bilaterally. She has been started on antimicrobial therapy. She has no clear operative reason to have pulmonary emboli, i.e., fat embolism. I agree with antimic robial coverage. If she deteriorates anaerobic coverage, should be added for aspiration pathogens.
[2017-10-25] MEDS: Atorvastatin Calcium 20 MG TAB PO SCH (21:15)
[2017-10-26] MEDS: Ibuprofen 200 MG TAB PO SCH ×4 (04:30→20:18)
[2017-10-26 05:06] LABS: Bilirubin Negative (Negative); Blood, Urine Negative (Negative); Clarity CLEAR (Clear); Glucose, Urine (Dipstick) Negative (Negative); Leukocyte Negative (Negative); Nitrite Negative (Negative); Protein, Urine (Dipstick) Negative (Neg-Trace); Specific Gravity, Urine 1.019 (1.002-1.036); Urobilinogen 0.2 mg/dL (0.2-1.0)
[2017-10-26 05:08] LABS: Bacteria/HPF 1+ HPF (None Seen); Hyaline Casts/LPF 0-3 HYALINE CAST LPF (0-3 Hyaline); RBC/HPF 0-3 HPF (0-3); Squamous Epithelial 0-3 HPF (0-3)
[2017-10-26] MEDS: Mometasone 100 MCG HFA INHALER INH SCH ×2 (06:14→19:26)
[2017-10-26 06:51] LABS: Renal Epithelial None Seen HPF (0-3); Transitional Epithelial NONE SEEN HPF (0-3); Trichomonas/HPF None Seen HPF (None Seen)
[2017-10-26] MEDS: Senokot S 8.6-50 MG TAB PO SCH ×2 (08:11→20:22)
[2017-10-26] MEDS: Polyethylene Glycol 3350 17 GM Packet PO SCH (08:12)
[2017-10-26] MEDS: K-Phos Neutral 250 MG TAB PO SCH (08:13)
[2017-10-26] MEDS: hydrALAZINE 25 MG TAB PO SCH ×3 (08:13→20:16)
[2017-10-26] MEDS: Enoxaparin Sodium 40 MG/0.4 ML SYRINGE SC SCH (08:14)
[2017-10-26] MEDS: cloNIDine 0.2 MG TAB PO SCH ×3 (08:14→16:13)
[2017-10-26] MEDS: Lisinopril 20 MG TAB PO SCH ×2 (08:14→20:18)
[2017-10-26] MEDS: Metoprolol Tartrate 100 MG TAB PO SCH ×2 (08:14→20:18)
[2017-10-26] MEDS ORDERED: Furosemide 20 MG TAB PO SCH (10:30)
--- NOTE | 2017-10-26 11:36 | PDOC.PN ---
- Subjective Encounter Start Date: 10/26/17 Encounter Start Time: 11:10 -: old records requested/rev Pt seen and examined, chart reviewed in its entirety, this is my first visit with this patient. PT working with pt now, very weak and difficult to event stand. Denies F/C, no N/V/D/C, breathing fairly good right now, no cough or sputum. 10 point ROS performed and neg for all systems except as above - Objective MAR Reviewed: Yes Vital Signs & Weight: Vital Signs (12 hours) Temp Pulse Resp BP BP Pulse Ox 10/26/17 08:14 145/74 H 10/26/17 08:13 81 145/74 H 10/26/17 07:45 98.4 F 81 16 145/74 H 91 L 10/26/17 06:14 73 16 94 L 10/26/17 06:13 73 16 94 L 10/26/17 05:15 97.4 F L 74 18 123/76 96 10/26/17 00:56 97.7 F 84 18 117/74 94 L Weight Weight 200 lb I&O: 10/25/17 10/26/17 10/27/17 06:59 06:59 06:59 Intake Total 480 100 Output Total 480 Balance 480 -380 Result Diagrams: 10/25/17 04:03 10/25/17 10:55 Radiology Reviewed by me: Yes EKG Reviewed by me: Yes Phys Exam - Physical Examination Constitutional: NAD HEENT: PERRLA, moist MMs, sclera anicteric, oral pharynx no lesions Neck: no nodes, no JVD, supple, full ROM bilaterla rales, prolonged expiration, no wheezes, no rhonchi Cardiovascular: RRR, no significant murmur, no rub Gastrointestinal: soft, non-tender, no distention, positive bowel sounds obese Musculoskeletal: pulses present, edema present right leg in straight leg brace Neurological: non-focal, normal sensation, moves all 4 limbs Lymphatic: no nodes Psychiatric: normal affect, A&O x 3 Skin: no rash, normal turgor, cap refill <2 seconds Dx/Plan (1) Femur fracture, right Code(s): S72.91XA - UNSP FRACTURE OF RIGHT FEMUR, INIT FOR CLOS FX Status: Acute Qualifiers: Encounter type: initial encounter Femur location: unspecified portion of femur Fracture type: closed Fracture morphology: unspecified fracture morphology Qualified Code(s): S72.91XA - Unspecified fracture of right femur, initial encounter for closed fracture Comment: s/p ORIF. per ortho. mobilizing (2) Leukocytosis Code(s): D72.829 - ELEVATED WHITE BLOOD CELL COUNT, UNSPECIFIED Status: Acute Qualifiers: Leukocytosis type: other Qualified Code(s): D72.828 - Other elevated white blood cell count Comment: stress/steroid response, do not suspect infection (3) Acute and chronic respiratory failure with hypoxia Code(s): J96.21 - ACUTE AND CHRONIC RESPIRATORY FAILURE WITH HYPOXIA Status: Acute Comment: Continue respiratory support, Solumedrol 40mg IV q6h, Duonebs, Dulera BID (4) Pulmonary edema Code(s): J81.1 - CHRONIC PULMONARY EDEMA Status: Acute Qualifiers: Chronicity: acute Qualified Code(s): J81.0 - Acute pulmonary edema Comment: mild, provbably acut stone chronic diastolic CHF. echo 09/2016 with nl EF , probable diastolic dysfunction (5) COPD exacerbation Code(s): J44.1 - CHRONIC OBSTRUCTIVE PULMONARY DISEASE W (ACUTE) EXACERBATION Status: Chronic (6) HTN (hypertension) Code(s): I10 - ESSENTIAL (PRIMARY) HYPERTENSION Status: Chronic Qualifiers: Hypertension type: essential hypertension Comment: Stable, continue home BP regimen (7) Acute on chronic diastolic CHF (congestive heart failure) Code(s): I50.33 - ACUTE ON CHRONIC DIASTOLIC (CONGESTIVE) HEART FAILURE Status : Acute Comment: restart home lasix 40mg po daily - Plan cont current plan of care, PT/OT, respiratory therapy, out of bed/ambulate, DVT proph w/lovenox * .
--- NOTE | 2017-10-26 17:46 | PRG ---
DATE OF SERVICE: 10/26/2017 ATTENDING PHYSICIAN: John Guerra DO SUBJECTIVE: Mrs. Mauro is an 82-year-old female who suffered a right periprosthetic femur fracture a fter suffering a ground level fall at home. She is now postop day #5 status post ORIF of her right d istal femur. She is still receiving supplemental oxygen this morning, but is otherwise stable and vo ices no complaints. OBJECTIVE: VITAL SIGNS: BP 145/74, pulse 81, temperature 98.4, respirations 16, O2 sat 91% on 2 liters nasal ca nnula. GENERAL: Elderly female, lying in bed, in no acute distress. HEENT: Normocephalic, atraumatic. PULMONARY: Breath sounds are clear to auscultation bilaterally with normal effort. No signs of resp iratory distress. She is on 2 liters nasal cannula. CARDIOVASCULAR: She has regular rate and rhythm, normal S1 and S2. EXTREMITIES: She is neurovascularly intact x4. She has a knee immobilizer on the right lower extrem ity. NEUROLOGIC: She is alert and oriented x4. She has no focal deficits. There is no laboratory data to review today. RADIOGRAPHIC FINDINGS: Chest x-ray taken the afternoon of 10/25/2017 shows worsening interstitial an d alveolar infiltrates. ASSESSMENT: 1. Status post ground level fall. 2. Right distal periprosthetic femur fracture status post open reduction internal fixation. 3. Leukocytosis, resolving. 4. History of asthma without acute exacerbation. 5. History of chronic obstructive pulmonary disease. 6. Bilateral pulmonary infiltrates. PLAN: 1. Continue nebulizer treatments and O2 supplementation to keep sats greater than 92%. 2. Continue PT and OT with orthopedic restrictions. 3. The patient has been started on Levaquin for possible pneumonia. 4. Pulmonology and Medicine following. I appreciate recommendations. 5. The patient's rehab bed is available tomorrow, so the patient will discharge tomorrow to [facility]. This patient was seen and examined along with Dr. John Guerra on rounds this morning who agrees wit h the assessment and plan.
[2017-10-26] MEDS: Atorvastatin Calcium 20 MG TAB PO SCH (20:16)
--- NOTE | 2017-10-27 00:37 | PRG ---
DATE OF SERVICE: 10/26/2017 SUBJECTIVE: Pernell Mauro is an 82-year-old female status post fall from a ramp with periprosthetic fem ur fracture. The patient is awaiting final disposition from hospital pending rehab acceptance. She has been having issues with constipation. Upon my evaluation this evening, she vocalized no complain t. OBJECTIVE: VITAL SIGNS: Reviewed and stable. GENERAL: The patient is resting in bed, in no acute distress. RESPIRATORY: Breathing is nonlabored. She is on room air. ASSESSMENT AND PLAN: As documented in daily progress note. Continue care as ordered. Continue to m onitor. Add a.m. lactulose. If the patient has bowel movement, she will likely be discharged in the a.m.
[2017-10-27] MEDS: Ibuprofen 200 MG TAB PO SCH ×3 (03:24→15:11)
[2017-10-27] MEDS: Mometasone 100 MCG HFA INHALER INH SCH (07:09)
[2017-10-27] MEDS ORDERED: Aspirin 81 mg Enteric Coated Tablet PO SCH (09:00)
[2017-10-27] MEDS ORDERED: Furosemide 40 MG TAB PO SCH (09:00)
[2017-10-27] MEDS ORDERED: Bisacodyl 10 MG SUPP PR SCH (09:00)
[2017-10-27] MEDS: cloNIDine 0.2 MG TAB PO SCH ×2 (09:04→14:04)
[2017-10-27] MEDS: hydrALAZINE 25 MG TAB PO SCH ×2 (09:06→15:12)
[2017-10-27] MEDS: Lisinopril 20 MG TAB PO SCH (09:06)
[2017-10-27] MEDS: Metoprolol Tartrate 100 MG TAB PO SCH (09:06)
[2017-10-27] MEDS: Polyethylene Glycol 3350 17 GM Packet PO SCH (09:07)
[2017-10-27] MEDS: Senokot S 8.6-50 MG TAB PO SCH (09:07)
[2017-10-27] MEDS: Enoxaparin Sodium 40 MG/0.4 ML SYRINGE SC SCH (09:08)
--- NOTE | 2017-10-27 12:36 | PDOC.PN ---
- Subjective Encounter Start Date: 10/27/17 Encounter Start Time: 10:40 Pt feels good. Breathing is at baseline, btu still requiring 2L NC oxygen. Approved for [facility], Primary team waiting for pt have a BM prior to D/C. No f/C, no N/V/d/C, no CP or SOB, some LECHUGA 10 point ROS performed and neg for all systems except as per HPI - Objective MAR Reviewed: Yes Vital Signs & Weight: Vital Signs (12 hours) Temp Pulse Resp BP BP Pulse Ox 10/27/17 12:21 98.3 F 84 15 153/74 H 93 L 10/27/17 09:06 79 156/82 H 10/27/17 09:04 156/82 H 10/27/17 08:56 98.7 F 81 14 156/82 H 92 L 10/27/17 07:09 70 18 94 L 10/27/17 07:07 70 18 94 L 10/27/17 03:28 98.4 F 70 18 138/80 94 L Weight Weight 200 lb I&O: 10/26/17 10/27/17 10/28/17 06:59 06:59 06:59 Intake Total 100 580 Output Total 480 Balance -380 580 Result Diagrams: 10/25/17 04:03 10/25/17 10:55 Phys Exam - Physical Examination Constitutional: NAD HEENT: PERRLA, moist MMs, sclera anicteric, oral pharynx no lesions Neck: no nodes, no JVD, supple, full ROM Respiratory: no wheezing, no rales, no rhonchi, clear to auscultation bilateral diminshed BS to bilateral bases Cardiovascular: RRR, no significant murmur, no rub Gastrointestinal: soft, non-tender, no distention, positive bowel sounds Musculoskeletal: pulses present, edema present Neurological: non-focal, normal sensation, moves all 4 limbs Lymphatic: no nodes Psychiatric: normal affect, A&O x 3 Skin: no rash, normal turgor, cap refill <2 seconds Dx/Plan (1) Femur fracture, right Code(s): S72.91XA - UNSP FRACTURE OF RIGHT FEMUR, INIT FOR CLOS FX Status: Acute Qualifiers: Encounter type: initial encounter Femur location: unspecified portion of femur Fracture type: closed Fracture morphology: unspecified fracture morphology Qualified Code(s): S72.91XA - Unspecified fracture of right femur, initial encounter for closed fracture Comment: s/p ORIF. per ortho. mobilizing. To Rehab at [facility] ? today (2) Leukocytosis Code(s): D72.829 - ELEVATED WHITE BLOOD CELL COUNT, UNSPECIFIED Status: Acute Qualifiers: Leukocytosis type: other Qualified Code(s): D72.828 - Other elevated white blood cell count Comment: stress/steroid response, do not suspect infection (3) Acute and chronic respiratory failure with hypoxia Code(s): J96.21 - ACUTE AND CHRONIC RESPIRATORY FAILURE WITH HYPOXIA Status: Acute Comment: Continue respiratory support, off steroids, continue duonebs and wean O2 as tolerated. IS at bedside, encouraged to use more (4) Pulmonary edema Code(s): J81.1 - CHRONIC PULMONARY EDEMA Status: Acute Qualifiers: Chronicity: acute Qualified Code(s): J81.0 - Acute pulmonary edema Comment: mild, provbably acut stone chronic diastolic CHF. echo 09/2016 with nl EF , probable diastolic dysfunction (5) COPD exacerbation Code(s): J44.1 - CHRONIC OBSTRUCTIVE PULMONARY DISEASE W (ACUTE) EXACERBATION Status: Chronic (6) HTN (hypertension) Code(s): I10 - ESSENTIAL (PRIMARY) HYPERTENSION Status: Chronic Qualifiers: Hypertension type: essential hypertension Comment: Stable, continue home BP regimen (7) Acute on chronic diastolic CHF (congestive heart failure) Code(s): I50.33 - ACUTE ON CHRONIC DIASTOLIC (CONGESTIVE) HEART FAILURE Status : Acute Comment: restart home lasix 40mg po daily - Plan * .
[2017-10-27 15:12] VITALS: BP 139/76
--- NOTE | 2017-10-27 15:16 | PRG ---
DATE OF SERVICE: 10/27/2017 SUBJECTIVE: She is doing well. She has no pulmonary complaints. She says, she still had limited we ightbearing on her legs today. She is scheduled to go to rehabilitation. Her lungs are clear. IMPRESSION: Chronic obstructive pulmonary disease, clinically stable. PLAN: She will follow up with me this summer. She has got an appointment in March. If she is not do ing well after rehab, she can see me sooner. She understands this.
[2017-10-27 16:19] VITALS: TEMP 98.6
== END 2017-10-27 15:55 | disposition short-term general hospital (02) | DRG 480 ==
LOC: ERS 08:59 → SDC 11:36 → SURG B 14:05
PROVIDERS: ADMIT Surgery; ATTEND Surgery
PROC: 0QSB04Z Reposition Right Lower Femur with Internal Fixation Device, Open Approach (ICD-10-PCS; principal; 2017-10-21)
DX: S72.451A Displaced supracondylar fracture without intracondylar extension of lower end of right femur, initial encounter for closed fracture (principal); J96.20 Acute and chronic respiratory failure, unspecified whether with hypoxia or hypercapnia; J44.1 Chronic obstructive pulmonary disease with (acute) exacerbation; M97.11XA Periprosthetic fracture around internal prosthetic right knee joint, initial encounter; K21.9 Gastro-esophageal reflux disease without esophagitis; E78.00 Pure hypercholesterolemia, unspecified; I10 Essential (primary) hypertension; G89.29 Other chronic pain; G89.11 Acute pain due to trauma; K59.00 Constipation, unspecified; Z88.5 Allergy status to narcotic agent; Z96.651 Presence of right artificial knee joint; Z96.612 Presence of left artificial shoulder joint; Z79.82 Long term (current) use of aspirin; Z79.899 Other long term (current) drug therapy; W01.0XXA Fall on same level from slipping, tripping and stumbling without subsequent striking against object, initial encounter; Y92.018 Other place in single-family (private) house as the place of occurrence of the external cause
CPT/HCPCS: 36415; 71045; 76001; 80048; 80053; 81001; 83735; 84100; 85025; 90471; 90715; 93005; 94640; 96374; 96375; A4216; C1713; C1769; G0390; G8978-GP-CM; G8979-GP-CK; G8987-GO-CL; G8988-GO-CJ; J1650; J1885; J1956; J2001; J2405; J2704; J7620

== ENCOUNTER 2018-02-01 11:06 | Outpatient (CLI) | payer MEDICARE ==
--- NOTE | 2018-02-01 13:19 | ULT ---
ULTRASOUND WITH DOPPLER DUPLEX VENOUS LOWER EXTREMITY RIGHT CPT: 79149 ICD-10-PCS: [id number] HISTORY: Edema of right lower extremity. TECHNIQUE: Color flow Doppler, spectral waveform analysis of pulsed Doppler, and baldwin-scale imaging with vilma madie and augmentation, were used to evaluate the bilateral common femoral, femoral, popliteal, check writing machine operator ior tibial, and superficial femoral, veins; and the proximal portions of the profunda femoral and gre ater saphenous, veins. FINDINGS: Compressibility and flow are documented of the right lower extremity without evidence of DVT. IMPRESSION: No deep vein thrombosis right lower extremity. POS: [facility]
== END 2018-02-01 11:07 | disposition home or self-care (01) ==
LOC: ULT 11:06
PROVIDERS: ATTEND Family Medicine
DX: R60.9 Edema, unspecified (principal)

== ENCOUNTER 2018-05-25 09:52 | Emergency (ER) | payer MEDICARE ==
[2018-05-25] MEDS ORDERED: Ketorolac Tromethamine 60 MG/2 ML VIAL ONE (11:25)
--- NOTE | 2018-05-25 12:08 | RAD ---
ONE VIEW CHEST: TWO VIEWS LEFT RIBS: HISTORY: Trauma. Pain. COMPARISON: None. FINDINGS: CHEST: A left humeral prosthesis is noted. On the one view chest, there appears to be pleural and parenchymal change in the left lung base. The lungs appear to be hyperinflated. No evidence of consolidation or mass. No definite pneumothorax o r acute osseous abnormalities. There is diffuse bone demineralization. RIBS: No fracture. No cortical irregularity. No periosteal reaction. Osteopenic changes are noted . IMPRESSION: 1. No posttraumatic change. 2. Pleural and parenchymal change in the left lung base. Correlate clinically, especially in the se tting of trauma. Continued surveillance to ensure resolution. POS: [facility]
== END 2018-05-25 12:10 | disposition home or self-care (01) ==
LOC: ERS 09:52
DX: S20.212A Contusion of left front wall of thorax, initial encounter (principal); K21.9 Gastro-esophageal reflux disease without esophagitis; E78.5 Hyperlipidemia, unspecified; I10 Essential (primary) hypertension; J44.9 Chronic obstructive pulmonary disease, unspecified; Z79.899 Other long term (current) drug therapy; W01.0XXA Fall on same level from slipping, tripping and stumbling without subsequent striking against object, initial encounter
CPT/HCPCS: 96372; J1885

== ENCOUNTER 2018-09-11 19:28 | Inpatient (IN) | payer MEDICARE ==
[2018-09-11] MEDS ORDERED: Water For Inject, Bacteriostat 30 ML ONE (19:53)
[2018-09-11] MEDS ORDERED: methylPREDNISolone Sod Succ/PF 125 MG/2 ML VIAL ONE (19:53)
[2018-09-11 19:59] LABS: Actual Bicarbonate (HCO3a) 30.5 mEq/L (22-28); Analyzer IN Cardio ER; Base Excess (BEa) 2.4 mEq/L (-2.0 to +3.0); Carboxyhemoglobin (COHb) 1.3 gm% (0.0-3.0); Hemoglobin (Hb) 12.2 g/dL (12.0-16.0); O2 Tension (PaO2) 95.8 mmHg (> 60.0); Potassium - ABG Lab 4.15 mmol/L (3.70-5.30); pH, Arterial 7.29 (7.35-7.45)
[2018-09-11 20:03] LABS: ALV-art Gradient 78.755 (0-20); CO2 Tension 65.7 mmHg (35.0-45.0); Puncture Site RRA
--- NOTE | 2018-09-11 20:21 | RAD ---
CHEST ONE VIEW: History: Shortness of breath. Comparison: 10-25-17 FINDINGS: Normal cardiac silhouette. The pulmonary vessels are prominent. Reticular nodular opacities, without consolidation or mass. No pneumothorax. No acute osseous abnormalities. IMPRESSION: Cardiomegaly. Pulmonary vascular prominence. Interstitial prominence. Congestive heart failure. POS: [facility]
[2018-09-11] MEDS ORDERED: Magnesium 2 GM/50 ML BAG (IN WATER) ONE (21:02)
[2018-09-11] MEDS ORDERED: Nitroglycerin 50 MG/250 ML BOT 250 ML ONE (21:04)
[2018-09-11 21:20] LABS: Band 11 % (5-11); Hemoglobin 11.5 g/dL (12.0-16.0); Lymphocytes 8 % (21-51); MDiff Complete? YES; Mean Corpuscular HGB CONC 30.2 g/dL (32.0-36.0); Mean Corpuscular Hemoglobin 25.1 pg (27.0-31.0); Mean Platelet Volume 9.5 fL (7.4-10.4); Monocytes 3 % (0-10); Neutrophil 78 % (42-75); PLT Morphology Comment Appears Adequate; Platelet Count 251 thou/uL (130-400); RBC Distribution Width 15.7 % (11.5-14.5); Red Blood Cell (RBC) Count 4.59 mill/uL (4.20-5.40); White Blood Cell (WBC) Count 24.1 thou/uL (4.8-10.8)
[2018-09-11 21:24] LABS: ALT (SGPT) 12 U/L (8-55); AST (SGOT) 15 U/L (5-34); Albumin 3.8 g/dL (3.4-4.8); Alkaline Phosphatase 127 U/L (40-150); Anion Gap 11 mmol/L (10-20); BUN (Urea Nitrogen) 14 mg/dL (9.8-20.1); Bilirubin, Total 0.2 mg/dL (0.2-1.2); Calc. Creatinine Clearance 0 mL/min (70-130); Carbon Dioxide 29 mmol/L (23-31); Chloride 105 mmol/L (98-107); Estimated GFR-MDRD 87; Globulin 3.1 g/dL (2.4-3.5); Glucose 144 mg/dL (83-110); Potassium 4.4 mmol/L (3.5-5.1); Protein, Total 6.9 g/dL (6.0-8.3); Sodium 141 mmol/L (136-145)
[2018-09-11 21:46] LABS: CKMB 1.5 ng/mL (0-6.6)
[2018-09-11] MEDS ORDERED: Furosemide 40 MG/4 ML VIAL ONE (21:55)
[2018-09-11] MEDS ORDERED: cefTRIAXone\\ROCEPHIN 1 GM VIAL ONE (22:49)
[2018-09-11 23:48] LABS: Troponin I 0.084 ng/mL (< 0.028)
[2018-09-12] MEDS ORDERED: Acetaminophen 325 MG TAB PO PRN (01:36)
[2018-09-12] MEDS ORDERED: Senokot S 8.6-50 MG TAB PO PRN (01:36)
[2018-09-12] MEDS ORDERED: Acetaminophen 650 MG Suppository PR PRN (01:36)
[2018-09-12] MEDS ORDERED: Zolpidem Tartrate 5 MG TAB PO PRN (01:36)
[2018-09-12] MEDS ORDERED: Bisacodyl 5 MG TAB PO PRN (01:36)
[2018-09-12] MEDS ORDERED: Azithromycin 500 MG VIAL ONE (01:46)
[2018-09-12 02:23] LABS: #Eosinphils 0.1 thou/uL (0.0-0.7); #Lymphocytes 1.2 thou/uL (1.20-3.40); #Monocytes 0.4 thou/uL (0.11-0.59); #Neutrophils 21.5 thou/uL (1.40-6.50); %Eosinophils 0.2 % (0.0-10.0); %Monocytes 1.5 % (0.0-10.0); %Neutrophils 93.2 % (42.0-75.0); Hemoglobin 11.3 g/dL (12.0-16.0); Mean Corpuscular HGB CONC 30.3 g/dL (32.0-36.0); Mean Corpuscular Hemoglobin 24.9 pg (27.0-31.0); Mean Corpuscular Volume 82.3 fL (78.0-98.0); Mean Platelet Volume 8.9 fL (7.4-10.4); Platelet Count 241 thou/uL (130-400); RBC Distribution Width 15.6 % (11.5-14.5); Red Blood Cell (RBC) Count 4.55 mill/uL (4.20-5.40); White Blood Cell (WBC) Count 23.1 thou/uL (4.8-10.8)
[2018-09-12 02:48] LABS: Troponin I 0.072 ng/mL (< 0.028)
[2018-09-12 02:50] LABS: Anion Gap 14 mmol/L (10-20); BUN (Urea Nitrogen) 15 mg/dL (9.8-20.1); Calc. Creatinine Clearance 0 mL/min (70-130); Calcium 10.1 mg/dL (7.8-10.44); Carbon Dioxide 29 mmol/L (23-31); Chloride 104 mmol/L (98-107); Estimated GFR-MDRD 86; Glucose 195 mg/dL (83-110); Potassium 4.3 mmol/L (3.5-5.1); Sodium 143 mmol/L (136-145)
[2018-09-12 03:18] VITALS: BMI 38.2
[2018-09-12] MEDS ORDERED: Vancomycin HCl 1.25 GM in Sodium Chloride 0.9% 250 ML 250 ML IVPB SCH (04:00)
[2018-09-12] MEDS: Furosemide 40 MG/4 ML VIAL SLOW IVP SCH ×2 (05:53→13:34)
[2018-09-12] MEDS ORDERED: Fluticasone Propionate HFA 110 MCG AER INH SCH (06:30)
[2018-09-12] MEDS ORDERED: Mometasone 200 MCG HFA INHALER INH SCH (08:45)
[2018-09-12] MEDS ORDERED: Loperamide HCl 2 MG CAP PO PRN (08:47)
[2018-09-12] MEDS ORDERED: Ondansetron PF 4 MG/2 ML Vial IVP PRN (08:47)
[2018-09-12] MEDS ORDERED: hydrALAZINE 20 MG/ML VIAL SLOW IVP PRN (08:47)
[2018-09-12] MEDS ORDERED: Diabetic Tussin 200 MG/10 ML UDCUP PO PRN (08:47)
[2018-09-12] MEDS ORDERED: Artificial Tears 18 DROP/0.9 ML EA EYE PRN (08:47)
[2018-09-12] MEDS ORDERED: Eucerin (Mineral Oil/Petrolatum,White) 30 gm Jar TOP PRN (08:47)
[2018-09-12] MEDS ORDERED: Ondansetron ODT 4 MG TAB PO PRN (08:47)
[2018-09-12] MEDS ORDERED: Sodium Chloride 0.65% Nasal 44 ML BOT EA NARE PRN (08:47)
[2018-09-12] MEDS ORDERED: Acetaminophen 500 MG TAB PO PRN (08:47)
[2018-09-12] MEDS ORDERED: Cepastat Lozenges 1 LOZ PO PRN (08:47)
[2018-09-12] MEDS: Cefepime 2 GM in Sodium Chloride 0.9% 100 ML IVPB SCH ×2 (08:50→22:37)
[2018-09-12] MEDS: Calcium Carbonate 500 MG ChewTAB PO SCH (08:50)
[2018-09-12] MEDS: Metoprolol Tartrate 100 MG TAB PO SCH ×2 (08:51→22:36)
[2018-09-12] MEDS: Famotidine 20 MG TAB PO SCH ×2 (08:51→22:36)
[2018-09-12] MEDS: cloNIDine 0.2 MG TAB PO SCH ×3 (08:52→22:35)
[2018-09-12] MEDS: Aspirin 81 mg Enteric Coated Tablet PO SCH (08:52)
[2018-09-12] MEDS: Lisinopril 20 MG TAB PO SCH ×2 (08:52→22:35)
[2018-09-12] MEDS: Enoxaparin Sodium 40 MG/0.4 ML SYRINGE SC SCH (08:53)
[2018-09-12] MEDS ORDERED: Vit A,C & E/Lutein/Minerals Tablet PO SCH (09:00)
[2018-09-12] MEDS ORDERED: Famotidine/PF 20 mg/2ml Vial SLOW IVP SCH (09:00)
[2018-09-12] MEDS ORDERED: Fish Oil 1,000 MG CAP PO SCH (09:00)
--- NOTE | 2018-09-12 09:54 | HP ---
CHIEF COMPLAINT: Shortness of breath. HISTORY OF PRESENT ILLNESS: This is an 83-year-old female with past medical history of chronic back pain, GERD, hyperlipidemia, hypertension, COPD, asthma, presenting with shortness of breath, which has been ongoing for the past week. Now, the patient states that her shortness of breath has been progressively gotten worse and now she is also endorsing generalized weakness with productive cough with sputum. The patient reports having upper respiratory infection and not feeling well for the past week. The patient endorses positive sick contact. The patient states that the has also been sick in the past week. At this point, the patient denies any chest pain, palpitations, dizziness, abdominal pain, nausea, vomiting, constipation, diarrhea, hematochezia, melena, hematuria, or dysuria. REVIEW OF SYSTEMS: Positive for generalized weakness, productive cough, shortness of breath, otherwise as documented in the HPI. All system has been reviewed and are negative. PAST MEDICAL HISTORY: Chronic back pain, GERD, hyperlipidemia, hypertension, COPD, asthma. FAMILY HISTORY: Reviewed and noncontributory to this visit. PAST SURGICAL HISTORY: Right knee replacement, left shoulder replacement, skin cancer removal. PSYCHIATRIC HISTORY: No previous psych history. SOCIAL HISTORY: The patient denies alcohol use. The patient denies any illicit drug use. The patient has no smoking history. ALLERGIES: THE PATIENT IS ALLERGIC TO FENTANYL, MORPHINE, AND VICODIN. CURRENT MEDICATIONS: The patient takes; 1. Clonidine 0.1 mg. 2. Metoprolol tartrate 100 mg. 3. Pantoprazole 40 mg. 4. Atorvastatin 20 mg. 5. Hydralazine 50 mg. 6. . 7. Furosemide 40 mg. 8. Lisinopril 20 mg. 9. Flovent two puffs. 10. Ventolin. 11. Motrin. PHYSICAL EXAMINATION: VITAL SIGNS: The patient's blood pressure is 169/83, pulse of 88, respiratory rate of 26, temperature of 99.6, oxygen saturation of 88 on 4 L. GENERAL: The patient is speaking in full sentences. Does not appear to be in any acute distress. The patient is lying in bed and the patient has a BiPAP on her face. The patient is obese. HEENT: Normocephalic, atraumatic. Pupils are equally round and reactive to light. Extraocular movements are intact. No scleral icterus. No conjunctival pallor. Mucous membranes are moist. NECK: The patient has big neck circumference. Full range of motion. Trachea is in midline. Neck is supple. LUNGS: Clear to auscultation bilaterally. The patient has mild wheezes at the anterior lung khan. No rhonchi can be appreciated. CARDIAC: Positive S1 and S2. Regular rate and rhythm. No murmurs, no gallops, no rubs appreciated. ABDOMEN: Obese abdomen. Soft, nontender, and nondistended. Positive bowel sounds in all quadrants. EXTREMITIES: The patient has 5/5 upper extremity strength and 5/5 lower extremity strength. Good pulses bilaterally of the upper and lower extremities. The patient has trace edema at the lower extremities. NEUROLOGIC: Cranial nerves 2 through 12 are grossly intact. No neurologic deficits noted. IMAGING STUDIES: EKG; the patient has normal sinus rhythm with a rate of 79. The patient has a cardiomegaly, mild congestive heart failure. LABORATORY DATA: WBC is 24.1, hemoglobin is 11.5, hematocrit is 38.1, MCV is 83.0, RDW is 15.7, platelet is 251 Blood gas; pH is 7.29, pCO2 is 65.7, PO2 is 95.8. Electrolytes; sodium is 141, potassium is 4.4, chloride is 105, carbon dioxide of 29, anion gap of 11, BUN is 14, creatinine is 0.65, glucose is 144. Troponin is 0.084. BNP is 692.0. ASSESSMENT AND PLAN: This is an 83-year-old female, being admitted for; 1. Acute respiratory failure, hypoxic and hypercapnic. At this point, the patient has been placed on BiPAP. We are going to admit the patient to the IMCU. We are going to manage the patient, we are going to start the patient on antibiotics. We are going to consult Pulmonology to further help with the patient's management. We will give the patient DuoNeb treatments and we will continue to manage the patient closely. 2. Shortness of breath with exertion, likely due to acute congestive heart failure. At this point, we have ordered an echo and we have consulted Cardiology. We will follow up with their recommendations. We will continue to treat the patient and follow up with morning labs. 3. Shortness of breath due to bronchitis. At this point, we are starting the patient on antibiotics. We are going to continue the patient on antibiotics. We have Pulmonology on consult. We will follow up their recommendations. We will follow up on cultures. We will follow up on morning labs. We will continue the patient on BiPAP. 4. Generalized weakness likely due to underlying infection. At this point, the patient has been started on antibiotics. We are going to continue treating the patient. We will give p.r.n. pain and medications for fevers. The patient will benefit from physical therapy evaluation when the patient's current symptoms improves. 5. Hypertension, currently controlled at this time. We will continue the patient on current management, we will start the patient on her home medications. We will add p.r.n. blood pressure medication when the patient's blood pressure becomes elevated. 6. Diabetes mellitus type 2. We will start the patient on insulin sliding scale. We will continue the patient on the sliding scale. We will monitor the patient's blood sugars and try to keep the sugars between 140 to 180. 7. Hyperlipidemia. We will continue the patient on her home medications. 8. Obesity noted. 9. Seborrheic dermatitis noted. 10. Elevated troponins, likely due to demand ischemia and underlying congestive heart failure. At this point, we will trend troponins and we will monitor the patient. 11. Deep venous thrombosis and gastrointestinal prophylaxis. Critical care time is greater than 70 minutes. Job ID: [id number]
--- NOTE | 2018-09-12 10:19 | CON ---
DATE OF CONSULTATION: 09/12/2018 The following encompassed 50 minutes of time, of that time, greater than 50% was spent with the patient and/or in the patient's unit in the hospital. REASON FOR CONSULTATION: Acute respiratory failure. HISTORY OF PRESENT ILLNESS: This is an 83-year-old female, who suddenly developed shortness of breath yesterday and was brought to the hospital. She denied any wheezing, congestion, fever, chills, or chest pain. It was thought that she was having usual asthma exacerbation, but looking at her data, she had a grossly elevated BNP, grossly elevated blood pressure, and pulmonary edema on her x-ray. She feels better today after having BiPAP and some diuretics. An echocardiogram is pending. PAST MEDICAL HISTORY: 1. Asthma - followed by Dr. Iglesias. 2. Osteoporosis. 3. Osteoarthritis. 4. Hypertension. PAST SURGICAL HISTORY: 1. Right knee replacement. 2. Supracondylar femur fracture repair. 3. Excision of skin cancer. 4. Left shoulder replacement. SOCIAL HISTORY: She is a nonsmoker. Does not consume alcohol. Does not use any illicit drugs. FAMILY MEDICAL HISTORY: Unremarkable. ALLERGIES: FENTANYL AND VICODIN. MEDICATIONS PRIOR TO ADMISSION: 1. Hydralazine 50 mg t.i.d. 2. Clonidine 0.2 mg t.i.d. 3. Tegretol 200 mg b.i.d. 4. Vitamin A, vitamin C, vitamin E, zinc, and copper two tablets daily. 5. Protonix 40 mg daily. 6. [place]-3 one tablet daily. 7. Lopressor 100 mg b.i.d. 8. Lisinopril 20 mg daily. 9. Lasix 40 mg daily. 10. Flovent HFA 2 puffs b.i.d. 11. Atorvastatin 20 mg daily. 12. Aspirin 81 mg daily. 13. Beano one tablet daily. 14. Ventolin HFA metered-dose inhaler as needed. 15. Tylenol as needed. REVIEW OF SYSTEMS: A 12-point review of systems is otherwise negative. PHYSICAL EXAMINATION: VITAL SIGNS: Temperature 98.3, pulse 105, blood pressure 153/58, O2 saturation 96% on nasal cannula. GENERAL: She is resting comfortably and is in no acute distress. HEENT: Unremarkable. NECK: No adenopathy. No JVD. LUNGS: No wheezing, but she has inspiratory crackles at both bases. CARDIAC: S1 and S2 obscured by a 3/6 holosystolic murmur. ABDOMEN: Soft, nontender, nondistended. EXTREMITIES: No clubbing, cyanosis, or edema. LABORATORY DATA: PH 7.29, pCO2 of 65, pO2 of 95 last night before she was put on BiPAP. White blood cell count 23, hematocrit 37.4, and platelet count 241. Sodium 143, potassium 4.3, chloride 104, CO2 of 29, BUN 15, creatinine 0.6, and glucose 195. BNP 692. ASSESSMENT: 1. Suspicious for acute diastolic cardiac failure. 2. Acute respiratory failure, requiring mechanical ventilation. 3. Less likely pneumonia. 4. Hypertension. PLAN: 1. Transfer to telemetry. She is comfortable off BiPAP. 2. Continue diuretics. 3. Resume nebulization treatments. 4. Check echocardiogram. 5. Scale back antibiotics. 6. Up and around as tolerated. Job ID: [id number]
--- NOTE | 2018-09-12 10:51 | CON ---
DATE OF CONSULTATION: 09/12/2018 REASON FOR CONSULTATION: Shortness of breath. HISTORY OF PRESENT ILLNESS: Ms. Mauro is a pleasant 83-year-old white female, who comes to the hospital for increased shortness of breath. She was diagnosed with possible exacerbation of her pneumonia, but most likely, was fluid overload and she was started on Lasix and she diuresed and she actually is doing much better now after diuresis. She denies any chest pain, tightness, or pressure. She has been dealing with bronchial asthma for several years, followed by Dr. Iglesias. PAST MEDICAL HISTORY: 1. Bronchial asthma. 2. Osteoporosis. 3. Osteoarthritis. 4. Hypertension. PAST SURGICAL HISTORY: 1. Right knee replacement. 2. Supracondylar femur fracture repair. 3. Excision of skin cancer. 4. Left shoulder replacement. OUTPATIENT MEDICATIONS: 1. Hydralazine 50 mg t.i.d. 2. Clonidine 0.2 mg t.i.d. 3. Tegretol 200 mg b.i.d. 4. Multivitamins. 5. Protonix. 6. [place]-3. 7. Lopressor 100 mg b.i.d. 8. Lisinopril 20 mg a day. 9. Lasix 40 mg a day. 10. Flovent 2 puffs b.i.d. 11. Atorvastatin 20 mg a day. 12. Aspirin 81 a day. 13. Beano one tablet a day. 14. Ventolin metered-dose inhaler as needed. 15. Tylenol as needed. ALLERGIES: FENTANYL AND VICODIN. FAMILY HISTORY: No early coronary artery disease. SOCIAL HISTORY: No alcohol, tobacco, or drugs. REVIEW OF SYSTEMS: A 12-point review of systems was done and was found to be negative unless stated in the history of present illness. PHYSICAL EXAMINATION: VITAL SIGNS: Temperature 98.3, pulse 105, respiratory rate 22, saturating 96% on 2 L, and blood pressure 153/58. GENERAL: Awake, alert, and oriented x3, in no distress. HEENT: Normocephalic, atraumatic. NECK: Supple. LUNGS: Clear. CARDIOVASCULAR: S1 and S2. No S3 or S4. There is a grade 3/6 systolic murmur at the right upper sternal border. ABDOMEN: Soft. Positive bowel sounds. EXTREMITIES: No edema. SKIN: Warm and dry. LABORATORY DATA: Reviewed. CBC with a white count of 23, hemoglobin of 11, hematocrit of 37, platelet count of 241. ABG was reviewed. Chemistries were reviewed, unremarkable. Troponin is 0.07, 0.08, 0.07. BNP of 692. TSH 0.4. Albumin was 3.8. Most recent echocardiogram was done in September of 2016. It showed a difficult study, but normal LV systolic function with some diastolic dysfunction. ASSESSMENT AND PLAN: 1. Acute on chronic diastolic heart failure. 2. Consideration for RV failure given history of asthma. 3. Volume overload, resolved with Lasix. 4. Bronchial asthma, well controlled at this time. 5. Acute hypoxic respiratory insufficiency, requiring BiPAP, resolved. 6. Hypertension, difficult to control, on several medications. PLAN: 1. Agree with continue Lasix. 2. Agree with transfer to telemetry floor as she seems to be much more stable and very comfortable off her BiPAP. 3. Echocardiogram pending today. 4. Further recommendations per results of echo. Job ID: [id number]
--- NOTE | 2018-09-12 11:56 | PDOC.PN ---
- Subjective Encounter Start Date: 09/12/18 Encounter Start Time: 09:15 -: old records requested/rev Patient seen and examined. No new complaints. No overnight events - Objective Resuscitation Status - Order Detail: 09/12/18 01:36 Resuscitation Status Routine Resuscitation Status: FULL: Full Resuscitation Vital Signs & Weight: Vital Signs (12 hours) Temp BP Pulse Ox 09/12/18 08:52 153/58 H 09/12/18 08:00 98.6 F 3 L 09/12/18 03:00 98.3 F 09/12/18 02:35 97 09/12/18 02:34 98 Weight Admit Weight 208 lb 12.444 oz Weight 208 lb 12.444 oz Most Recent Monitor Data Heart Rate from ECG 84 NIBP 112/63 NIBP BP-Mean 79 Respiration from ECG 24 SpO2 97 I&O: 09/11/18 09/12/18 09/13/18 06:59 06:59 06:59 Intake Total 451 340 Output Total 300 600 Balance 151 -260 Result Diagrams: 09/12/18 02:14 09/12/18 02:14 Radiology Reviewed by me: Yes (chest xray reviewed) EKG Reviewed by me: Yes (nsr) Phys Exam - Physical Examination Constitutional: NAD HEENT: PERRLA, moist MMs, sclera anicteric Neck: no JVD, supple Respiratory: wheezing present (bas) basal rales Cardiovascular: RRR, no significant murmur, no rub Gastrointestinal: soft, non-tender, no distention, positive bowel sounds Musculoskeletal: pulses present, edema present Neurological: non-focal, normal sensation Lymphatic: no nodes Psychiatric: normal affect Skin: no rash, normal turgor Dx/Plan (1) Acute and chronic respiratory failure with hypoxia Code(s): J96.21 - ACUTE AND CHRONIC RESPIRATORY FAILURE WITH HYPOXIA Status: Acute Comment: required bipap, currently off on bipap (2) Acute on chronic diastolic CHF (congestive heart failure) Code(s): I50.33 - ACUTE ON CHRONIC DIASTOLIC (CONGESTIVE) HEART FAILURE Status : Acute Comment: continue IV lasix (3) COPD exacerbation Code(s): J44.1 - CHRONIC OBSTRUCTIVE PULMONARY DISEASE W (ACUTE) EXACERBATION Status: Acute Comment: continue respiratory therapy (4) Demand ischemia Code(s): I24.8 - OTHER FORMS OF ACUTE ISCHEMIC HEART DISEASE Status: Acute (5) Dyslipidemia Code(s): E78.5 - HYPERLIPIDEMIA, UNSPECIFIED Status: Chronic (6) GERD (gastroesophageal reflux disease) Code(s): K21.9 - GASTRO-ESOPHAGEAL REFLUX DISEASE WITHOUT ESOPHAGITIS Status: Chronic (7) Glaucoma Code(s): H40.9 - UNSPECIFIED GLAUCOMA Status: Chronic (8) HTN (hypertension) Code(s): I10 - ESSENTIAL (PRIMARY) HYPERTENSION Status: Chronic Qualifiers: Hypertension type: essential hypertension Comment: (9) Obesity (BMI 30-39.9) Code(s): E66.9 - OBESITY, UNSPECIFIED Status: Chronic - Plan cont current plan of care, continue antibiotics, respiratory therapy * medication reviewed as below * symptomatic treatment * continue lasix * continue cefepime * cardiology and pulmonary on case * home medication reconciled * will monitor labs * echo pending result. Review of Systems - Review of Systems Constitutional: negative: fever, chills, sweats, weakness, malaise, other Eyes: negative: Pain, Vision Change, Conjunctivae Inflammation, Eyelid Inflammation, Redness, Other ENT: negative: Ear Pain, Ear Discharge, Nose Pain, Nose Discharge, Nose Congestion, Mouth Pain, Mouth Swelling, Throat Pain, Throat Swelling, Other Respiratory: Cough, Shortness of Breath, SOB with Excertion. negative: Dry, Hemoptysis, Pleuritic Pain, Sputum, Wheezing Cardiovascular: negative: chest pain, palpitations, orthopnea, paroxysmal nocturnal dyspnea, edema, light headedness, other Gastrointestinal: negative: Nausea, Vomiting, Abdominal Pain, Diarrhea, Constipation, Melena, Hematochezia, Other Genitourinary: negative: Dysuria, Frequency, Incontinence, Hematuria, Retention , Other Musculoskeletal: negative: Neck Pain, Shoulder Pain, Arm Pain, Back Pain, Hand Pain, Leg Pain, Foot Pain, Other Skin: negative: Rash, Lesions, Cornell, Bruising, Other - Medications/Allergies Allergies/Adverse Reactions: Allergies Allergy/AdvReac Type Severity Reaction Status Date / Time fentanyl Allergy Verified 09/12/18 04:17 hydrocodone bitartrate Allergy Verified 09/12/18 04:17 [From Vicodin] morphine Allergy Verified 09/12/18 04:17 Medications: Current Medications Acetaminophen (Tylenol) 650 mg PO Q4H PRN PRN Reason: Headache/Fever/Mild Pain (1-3) Acetaminophen (Tylenol) 650 mg [place] Q4H PRN PRN Reason: Headache/Fever/Mild Pain (1-3) Acetaminophen (Tylenol) 500 mg PO Q6H PRN PRN Reason: Mild Pain (1-3) Albuterol/Ipratropium (Duoneb) 3 ml NEB [id number] [facility] Artificial Tears (Tears Naturale) 2 drop EA EYE PRN PRN PRN Reason: Dry Eyes Aspirin (Ecotrin) 81 mg PO DAILY [facility] Last Admin: 09/12/18 08:52 Dose: 81 mg Atorvastatin Calcium (Lipitor) 20 mg PO HS [facility] Bisacodyl (Dulcolax) 10 mg PO DAILYPRN PRN PRN Reason: Constipation Calcium Carbonate (Tums) 1,000 mg PO QAM[facility] Last Admin: 09/12/18 08:50 Dose: 1,000 mg Carbamazepine (Tegretol) 200 mg PO BID [facility] Clonidine (Catapres) 0.2 mg PO TID [facility] Last Admin: 09/12/18 08:52 Dose: 0.2 mg Enoxaparin Sodium (Lovenox) 40 mg SC 0900 [facility] Last Admin: 09/12/18 08:53 Dose: 40 mg Famotidine (Pepcid) 20 mg SLOW IVP Q12HR [facility] Last Admin: 09/12/18 08:53 Dose: Not Given Famotidine (Pepcid) 20 mg PO BID [facility] Last Admin: 09/12/18 08:51 Dose: 20 mg Fish Oil (Fish Oil) 1,000 mg PO TID [facility] Last Admin: 09/12/18 08:50 Dose: 1,000 mg Fish Oil (Fish Oil) 1,000 mg PO DAILY [facility] Furosemide (Lasix) 40 mg SLOW IVP 0600,1400 [facility] Last Admin: 09/12/18 05:53 Dose: 40 mg Guaifenesin (Robitussin Sf) 200 mg PO Q4H PRN PRN Reason: Cough Hydralazine HCl (Apresoline) 50 mg PO TID [facility] Hydralazine HCl (Apresoline) 10 mg SLOW IVP Q4H PRN PRN Reason: SBP > 180 and HR < 70 Cefepime HCl 2 gm/ Sodium (Chloride) 100 mls @ 200 mls/hr IVPB Q12HR [facility] Last Admin: 09/12/18 08:50 Dose: 100 mls Latanoprost (Xalatan 0.005% Oph Sol) 1 drop EA EYE HS [facility] Lisinopril (Zestril) 20 mg PO BID [facility] Last Admin: 09/12/18 08:52 Dose: 20 mg Loperamide HCl (Imodium) 2 mg PO PRN PRN PRN Reason: Diarrhea/Loose Stools Metoprolol Tartrate (Lopressor) 100 mg PO BID [facility] Last Admin: 09/12/18 08:51 Dose: 100 mg Mineral Oil/White Petrolatum (Eucerin Cream) 0 gm TOP BIDPRN PRN PRN Reason: Dry Skin Miscellaneous Medication (Pharmacy To Dose) 0 each IVPB PRN PRN PRN Reason: VANC/CEFEPIME Pharmacy to Dose Mometasone Furoate (Asmanex Hfa 200 Mcg) 1 puff INH BID-RT [facility] Multivitamins/Minerals (Ocuvite With Lutein) 1 tab PO DAILY [facility] Multivitamins/Minerals (Ocuvite With Lutein) 2 tab PO DAILY [facility] Ondansetron HCl (Zofran Odt) 4 mg PO Q6H PRN PRN Reason: Nausea/Vomiting Ondansetron HCl (Zofran) 4 mg IVP Q6H PRN PRN Reason: Nausea/Vomiting Pantoprazole Sodium (Protonix) 40 mg PO DAILY [facility] Last Admin: 09/12/18 08:54 Dose: Not Given Propylene Glycol (Systane Opth Drop 15ml Bot) 1 drop EA EYE 1200 [facility] Saccharomyces Boulardii (Florastor) 250 mg PO DAILY [facility] Senna/Docusate Sodium (Senokot S) 2 tab PO BIDPRN PRN PRN Reason: Constipation Sodium Chloride (Flush - Normal Saline) 10 ml IVF Q12HR [facility] Last Admin: 09/12/18 08:52 Dose: 10 ml Sodium Chloride (Flush - Normal Saline) 10 ml IVF PRN PRN PRN Reason: Saline Flush Sodium Chloride ([place] Nasal [place] 0.65%) 0 ml EA NARE QIDPRN PRN PRN Reason: Nasal Congestion Throat Lozenges (Cepastat Lozenges) 1 paulina PO Q2H PRN PRN Reason: Sore Throat Zolpidem Tartrate (Ambien) 5 mg PO HSPRN PRN PRN Reason: Insomnia
[2018-09-12] MEDS: carBAMazepine 200 MG TAB PO SCH ×2 (13:37→22:36)
[2018-09-12] MEDS: Saccharomyces boulardii 250 MG CAP PO SCH (13:38)
[2018-09-12] MEDS: Polyethylene Glycol OPTH DROP 15 ML BOT EA EYE SCH (14:30)
[2018-09-12] MEDS: hydrALAZINE 25 MG TAB PO SCH ×2 (14:36→22:35)
[2018-09-12] MEDS: Mometasone 200 MCG HFA INHALER INH SCH (19:03)
[2018-09-12] MEDS ORDERED: Non-Formulary Item 1 EACH (Bimatoprost [Lumigan 0.01% Ophth Soln] 1 DROP) EA EYE SCH (21:00)
[2018-09-12] MEDS: Fish Oil 1,000 MG CAP PO SCH (22:28)
[2018-09-12] MEDS: Atorvastatin Calcium 20 MG TAB PO SCH (22:35)
[2018-09-12] MEDS: Latanoprost 0.005% Ophth Soln 2.5 ml Bottle EA EYE SCH (22:36)
[2018-09-13] MEDS: Furosemide 40 MG/4 ML VIAL SLOW IVP SCH ×2 (06:15→15:57)
[2018-09-13] MEDS: Mometasone 200 MCG HFA INHALER INH SCH ×2 (08:52→19:53)
[2018-09-13] MEDS: Cefepime 2 GM in Sodium Chloride 0.9% 100 ML IVPB SCH ×2 (09:19→20:56)
[2018-09-13] MEDS: Enoxaparin Sodium 40 MG/0.4 ML SYRINGE SC SCH (09:19)
[2018-09-13] MEDS: hydrALAZINE 25 MG TAB PO SCH ×3 (09:20→20:55)
[2018-09-13] MEDS: Lisinopril 20 MG TAB PO SCH ×2 (09:20→20:56)
[2018-09-13] MEDS: Vit A,C & E/Lutein/Minerals Tablet PO SCH (09:20)
[2018-09-13] MEDS: Calcium Carbonate 500 MG ChewTAB PO SCH (09:20)
[2018-09-13] MEDS: Saccharomyces boulardii 250 MG CAP PO SCH (09:20)
[2018-09-13] MEDS: cloNIDine 0.2 MG TAB PO SCH ×3 (09:21→20:55)
[2018-09-13] MEDS: Famotidine 20 MG TAB PO SCH ×2 (09:21→20:56)
[2018-09-13] MEDS: carBAMazepine 200 MG TAB PO SCH ×2 (09:21→20:55)
[2018-09-13] MEDS: Aspirin 81 mg Enteric Coated Tablet PO SCH (09:21)
[2018-09-13] MEDS: Fish Oil 1,000 MG CAP PO SCH (09:21)
[2018-09-13] MEDS: Metoprolol Tartrate 100 MG TAB PO SCH ×2 (09:21→20:55)
--- NOTE | 2018-09-13 09:25 | PDOC.PN ---
- Subjective Encounter Start Date: 09/13/18 Encounter Start Time: 07:40 Patient seen and examined. No new complaints. No overnight events - Objective Resuscitation Status - Order Detail: 09/12/18 01:36 Resuscitation Status Routine Resuscitation Status: FULL: Full Resuscitation MAR Reviewed: Yes Vital Signs & Weight: Vital Signs (12 hours) Temp Pulse Resp BP BP Pulse Ox 09/13/18 09:20 68 09/13/18 08:52 68 16 09/13/18 08:43 93 L 09/13/18 08:40 68 16 09/13/18 03:27 97.1 F L 68 14 119/59 L 97 09/13/18 00:34 65 09/13/18 00:17 71 16 09/12/18 22:35 82 146/64 H Weight Admit Weight 208 lb 12.444 oz Weight 208 lb 9.6 oz Most Recent Monitor Data Heart Rate from ECG 70 NIBP 133/56 NIBP BP-Mean 81 Respiration from ECG 18 SpO2 96 I&O: 09/12/18 09/13/18 09/14/18 06:59 06:59 06:59 Intake Total 451 1000 Output Total 300 1620 Balance 151 -620 Result Diagrams: 09/12/18 02:14 09/12/18 02:14 EKG Reviewed by me: Yes (nsr) Phys Exam - Physical Examination Constitutional: NAD HEENT: PERRLA, moist MMs, sclera anicteric Neck: no JVD, supple Respiratory: no wheezing, no rhonchi reduced air entry at base Cardiovascular: RRR, no significant murmur, no rub Gastrointestinal: soft, non-tender, no distention, positive bowel sounds Musculoskeletal: no edema, pulses present Neurological: non-focal, normal sensation Lymphatic: no nodes Psychiatric: normal affect, A&O x 3 Skin: no rash, normal turgor Dx/Plan (1) Acute and chronic respiratory failure with hypoxia Code(s): J96.21 - ACUTE AND CHRONIC RESPIRATORY FAILURE WITH HYPOXIA Status: Acute Comment: required bipap, currently off on bipap (2) Acute on chronic diastolic CHF (congestive heart failure) Code(s): I50.33 - ACUTE ON CHRONIC DIASTOLIC (CONGESTIVE) HEART FAILURE Status : Acute Comment: continue IV lasix (3) COPD exacerbation Code(s): J44.1 - CHRONIC OBSTRUCTIVE PULMONARY DISEASE W (ACUTE) EXACERBATION Status: Acute Comment: continue respiratory therapy (4) Demand ischemia Code(s): I24.8 - OTHER FORMS OF ACUTE ISCHEMIC HEART DISEASE Status: Acute (5) Dyslipidemia Code(s): E78.5 - HYPERLIPIDEMIA, UNSPECIFIED Status: Chronic (6) GERD (gastroesophageal reflux disease) Code(s): K21.9 - GASTRO-ESOPHAGEAL REFLUX DISEASE WITHOUT ESOPHAGITIS Status: Chronic (7) Glaucoma Code(s): H40.9 - UNSPECIFIED GLAUCOMA Status: Chronic (8) HTN (hypertension) Code(s): I10 - ESSENTIAL (PRIMARY) HYPERTENSION Status: Chronic Qualifiers: Hypertension type: essential hypertension Comment: (9) Obesity (BMI 30-39.9) Code(s): E66.9 - OBESITY, UNSPECIFIED Status: Chronic - Plan cont current plan of care, continue antibiotics, PT/OT, respiratory therapy * continue lasix * continue cefepime * bipap as needed * medication reviewed as below * symptomatic treatment * continue PT * repeat labs tomorrow * overall doing well. Review of Systems - Review of Systems Constitutional: weakness. negative: fever, chills, sweats, malaise, other Respiratory: SOB with Excertion. negative: Cough, Dry, Shortness of Breath, Hemoptysis, Pleuritic Pain, Sputum, Wheezing Cardiovascular: negative: chest pain, palpitations, orthopnea, paroxysmal nocturnal dyspnea, edema, light headedness, other Gastrointestinal: negative: Nausea, Vomiting, Abdominal Pain, Diarrhea, Constipation, Melena, Hematochezia, Other Genitourinary: negative: Dysuria, Frequency, Incontinence, Hematuria, Retention , Other Musculoskeletal: negative: Neck Pain, Shoulder Pain, Arm Pain, Back Pain, Hand Pain, Leg Pain, Foot Pain, Other Skin: negative: Rash, Lesions, Cornell, Bruising, Other - Medications/Allergies Allergies/Adverse Reactions: Allergies Allergy/AdvReac Type Severity Reaction Status Date / Time fentanyl Allergy Verified 09/12/18 04:17 hydrocodone bitartrate Allergy Verified 09/12/18 04:17 [From Vicodin] morphine Allergy Verified 09/12/18 04:17 Medications: Current Medications Acetaminophen (Tylenol) 650 mg PO Q4H PRN PRN Reason: Headache/Fever/Mild Pain (1-3) Last Admin: 09/12/18 22:35 Dose: 650 mg Acetaminophen (Tylenol) 650 mg IA Q4H PRN PRN Reason: Headache/Fever/Mild Pain (1-3) Acetaminophen (Tylenol) 500 mg PO Q6H PRN PRN Reason: Mild Pain (1-3) Albuterol/Ipratropium (Duoneb) 3 ml NEB [id number] [facility] Last Admin: 09/13/18 08:40 Dose: 3 ml Artificial Tears (Tears Naturale) 2 drop EA EYE PRN PRN PRN Reason: Dry Eyes Aspirin (Ecotrin) 81 mg PO DAILY [facility] Last Admin: 09/13/18 09:21 Dose: 81 mg Atorvastatin Calcium (Lipitor) 20 mg PO HS [facility] Last Admin: 09/12/18 22:35 Dose: 20 mg Bisacodyl (Dulcolax) 10 mg PO DAILYPRN PRN PRN Reason: Constipation Calcium Carbonate (Tums) 1,000 mg PO QAM-WM [facility] Last Admin: 09/13/18 09:20 Dose: 1,000 mg Carbamazepine (Tegretol) 200 mg PO BID [facility] Last Admin: 09/13/18 09:21 Dose: 200 mg Clonidine (Catapres) 0.2 mg PO TID [facility] Last Admin: 09/13/18 09:21 Dose: 0.2 mg Enoxaparin Sodium (Lovenox) 40 mg SC 0900 [facility] Last Admin: 09/13/18 09:19 Dose: 40 mg Famotidine (Pepcid) 20 mg PO BID [facility] Last Admin: 09/13/18 09:21 Dose: 20 mg Fish Oil (Fish Oil) 1,000 mg PO DAILY [facility] Last Admin: 09/13/18 09:21 Dose: 1,000 mg Furosemide (Lasix) 40 mg SLOW IVP 0600,1400 [facility] Last Admin: 09/13/18 06:15 Dose: 40 mg Guaifenesin (Robitussin Sf) 200 mg PO Q4H PRN PRN Reason: Cough Hydralazine HCl (Apresoline) 50 mg PO TID [facility] Last Admin: 09/13/18 09:20 Dose: 50 mg Hydralazine HCl (Apresoline) 10 mg SLOW IVP Q4H PRN PRN Reason: SBP > 180 and HR < 70 Cefepime HCl 2 gm/ Sodium (Chloride) 100 mls @ 200 mls/hr IVPB Q12HR [facility] Last Admin: 09/13/18 09:19 Dose: 100 mls Latanoprost (Xalatan 0.005% Ophth Soln) 1 drop EA EYE HS [facility] Last Admin: 09/12/18 22:36 Dose: 1 drop Lisinopril (Zestril) 20 mg PO BID [facility] Last Admin: 09/13/18 09:20 Dose: 20 mg Loperamide HCl (Imodium) 2 mg PO PRN PRN PRN Reason: Diarrhea/Loose Stools Metoprolol Tartrate (Lopressor) 100 mg PO BID [facility] Last Admin: 09/13/18 09:21 Dose: 100 mg Mineral Oil/White Petrolatum (Eucerin Cream) 0 gm TOP BIDPRN PRN PRN Reason: Dry Skin Mometasone Furoate (Asmanex Hfa 200 Mcg) 1 puff INH BID-RT [facility] Last Admin: 09/13/18 08:52 Dose: 1 puff Multivitamins/Minerals (Ocuvite With Lutein) 2 tab PO DAILY [facility] Last Admin: 09/13/18 09:20 Dose: 2 tab Ondansetron HCl (Zofran Odt) 4 mg PO Q6H PRN PRN Reason: Nausea/Vomiting Ondansetron HCl (Zofran) 4 mg IVP Q6H PRN PRN Reason: Nausea/Vomiting Propylene Glycol (Systane Opth Drop 15ml Bot) 1 drop EA EYE 1200 [facility] Last Admin: 09/12/18 14:30 Dose: 1 drop Saccharomyces Boulardii (Florastor) 250 mg PO DAILY [facility] Last Admin: 09/13/18 09:20 Dose: 250 mg Senna/Docusate Sodium (Senokot S) 2 tab PO BIDPRN PRN PRN Reason: Constipation Sodium Chloride (Flush - Normal Saline) 10 ml IVF PRN PRN PRN Reason: Saline Flush Last Admin: 09/12/18 22:37 Dose: 10 ml Sodium Chloride (Idamay Nasal [place] 0.65%) 0 ml EA NARE QIDPRN PRN PRN Reason: Nasal Congestion Throat Lozenges (Cepastat Lozenges) 1 paulina PO Q2H PRN PRN Reason: Sore Throat Zolpidem Tartrate (Ambien) 5 mg PO HSPRN PRN PRN Reason: Insomnia
[2018-09-13] MEDS: Polyethylene Glycol OPTH DROP 15 ML BOT EA EYE SCH (11:54)
[2018-09-13] MEDS ORDERED: Polyethylene Glycol 3350 17 GM Packet PO SCH (12:45)
--- NOTE | 2018-09-13 13:25 | PRG ---
DATE OF SERVICE: 09/13/2018 SUBJECTIVE: This morning, she is awake, alert, responsive. Slight cough, but no shortness of breath. OBJECTIVE: VITAL SIGNS: Saturations are 93% on 2 L, respirations 16, temperature 98, blood pressure 112/54. CHEST: Decreased breath sounds without any wheezing. CARDIAC: Normal S1, S2. No gallops. ABDOMEN: Massive. EXTREMITIES: No edema. IMPRESSION: 1. Respiratory failure. 2. Morbid obesity. PLAN: Continue neb treatments, broad-spectrum antibiotics, PT. We will follow. 1. We will follow. Job ID: [id number]
--- NOTE | 2018-09-13 16:38 | PDOC.CTH ---
Cardiology Progress Note - Subjective Breathing better. - Objective Vital Signs Temp Pulse Pulse Pulse Resp BP BP 09/13/18 16:02 79 16 09/13/18 15:58 146/65 H 09/13/18 15:57 64 09/13/18 11:53 98.3 F 64 16 09/13/18 10:38 71 82 132/58 L 09/13/18 09:20 68 09/13/18 08:52 68 16 09/13/18 08:43 09/13/18 08:40 68 16 09/13/18 08:00 BP BP Pulse Ox Pulse Ox Pulse Ox 09/13/18 16:02 09/13/18 15:58 09/13/18 15:57 09/13/18 11:53 110/54 L 89 L 09/13/18 10:38 166/70 H 93 L 91 L 09/13/18 09:20 09/13/18 08:52 09/13/18 08:43 93 L 09/13/18 08:40 09/13/18 08:00 92 L Admit Weight 208 lb 12.444 oz Weight 208 lb 9.6 oz 09/12/18 09/13/18 09/14/18 06:59 06:59 06:59 Intake Total 451 1000 Output Total 300 1620 Balance 151 -620 - Physical Examination General/Neuro: alert & oriented x3, NAD Neck: no JVD present Lungs: CTA, unlabored respirations Heart: RRR Abdomen: NT/ND Extremities: + edema B (trace) - Telemetry Telemetry Rhythm: NSR - Labs Result Diagrams: 09/12/18 02:14 09/12/18 02:14 Troponin/CKMB CK-MB (CK-2) 1.5 ng/mL (0-6.6) 09/11/18 20:07 Troponin I 0.072 ng/mL (< 0.028) H 09/12/18 02:14 - Assessment/Plan 1. Acute on chronic diastolic heart failure 2. Bronchial asthma 3. Mildly elevated pulmonary presssures. 4. HTN PLAN: - Switch to PO Lasix tomorrow. - Continue home meds for BP control.
[2018-09-13] MEDS: Latanoprost 0.005% Ophth Soln 2.5 ml Bottle EA EYE SCH (20:56)
[2018-09-13] MEDS: Atorvastatin Calcium 20 MG TAB PO SCH (20:56)
[2018-09-14 05:17] LABS: #Eosinphils 0.3 thou/uL (0.0-0.7); #Lymphocytes 1.6 thou/uL (1.20-3.40); #Monocytes 1.4 thou/uL (0.11-0.59); %Basophils 0.2 % (0.0-1.0); %Eosinophils 1.7 % (0.0-10.0); %Lymphocytes 10.7 % (21.0-51.0); %Neutrophils 78.4 % (42.0-75.0); Hemoglobin 10.7 g/dL (12.0-16.0); Mean Corpuscular HGB CONC 29.9 g/dL (32.0-36.0); Mean Corpuscular Hemoglobin 24.7 pg (27.0-31.0); Mean Corpuscular Volume 82.6 fL (78.0-98.0); Mean Platelet Volume 9.4 fL (7.4-10.4); Platelet Count 216 thou/uL (130-400); RBC Distribution Width 15.6 % (11.5-14.5); Red Blood Cell (RBC) Count 4.36 mill/uL (4.20-5.40); White Blood Cell (WBC) Count 15.2 thou/uL (4.8-10.8)
[2018-09-14 05:40] LABS: Anion Gap 12 mmol/L (10-20); BUN (Urea Nitrogen) 24 mg/dL (9.8-20.1); Calc. Creatinine Clearance 104 mL/min (70-130); Calcium 9.3 mg/dL (7.8-10.44); Carbon Dioxide 35 mmol/L (23-31); Chloride 97 mmol/L (98-107); Estimated GFR-MDRD Greater than 90; Glucose 120 mg/dL (83-110); Sodium 140 mmol/L (136-145)
[2018-09-14] MEDS: Mometasone 200 MCG HFA INHALER INH SCH ×2 (07:22→19:22)
[2018-09-14] MEDS: Saccharomyces boulardii 250 MG CAP PO SCH (08:46)
[2018-09-14] MEDS: Fish Oil 1,000 MG CAP PO SCH (08:46)
[2018-09-14] MEDS: Enoxaparin Sodium 40 MG/0.4 ML SYRINGE SC SCH (08:46)
[2018-09-14] MEDS: cloNIDine 0.2 MG TAB PO SCH ×3 (08:46→20:28)
[2018-09-14] MEDS: Cefepime 2 GM in Sodium Chloride 0.9% 100 ML IVPB SCH ×2 (08:46→20:27)
[2018-09-14] MEDS: Aspirin 81 mg Enteric Coated Tablet PO SCH (08:47)
[2018-09-14] MEDS: Metoprolol Tartrate 100 MG TAB PO SCH ×2 (08:47→20:28)
[2018-09-14] MEDS: Furosemide 40 MG TAB PO SCH (08:47)
[2018-09-14] MEDS: carBAMazepine 200 MG TAB PO SCH ×2 (08:47→20:29)
[2018-09-14] MEDS: hydrALAZINE 25 MG TAB PO SCH ×3 (08:47→20:27)
[2018-09-14] MEDS: Lisinopril 20 MG TAB PO SCH ×2 (08:47→20:29)
[2018-09-14] MEDS: Calcium Carbonate 500 MG ChewTAB PO SCH (08:47)
[2018-09-14] MEDS: Famotidine 20 MG TAB PO SCH ×2 (08:48→20:28)
[2018-09-14] MEDS: Vit A,C & E/Lutein/Minerals Tablet PO SCH (08:49)
[2018-09-14] MEDS: Polyethylene Glycol 3350 17 GM Packet PO SCH (08:49)
--- NOTE | 2018-09-14 09:35 | PDOC.PN ---
- Subjective Encounter Start Date: 09/14/18 Encounter Start Time: 11:30 Subjective: Patient reports improved SOB. Still requiring 2L oxygen. No other -: complaints. - Objective Resuscitation Status - Order Detail: 09/12/18 01:36 Resuscitation Status Routine Resuscitation Status: FULL: Full Resuscitation MAR Reviewed: Yes Vital Signs & Weight: Vital Signs (12 hours) Temp Pulse Resp BP Pulse Ox 09/14/18 07:45 98.1 F 82 16 173/76 H 90 L 09/14/18 07:22 77 18 91 L 09/14/18 07:19 77 18 91 L 09/14/18 04:15 22 H 90 L 09/14/18 03:36 97.8 F 70 20 127/68 87 L 09/14/18 01:08 67 18 90 L 09/14/18 00:00 98.9 F 66 18 106/53 L 92 L Weight Admit Weight 208 lb 12.444 oz Weight 209 lb 9.6 oz Most Recent Monitor Data Heart Rate from ECG 70 NIBP 133/56 NIBP BP-Mean 81 Respiration from ECG 18 SpO2 96 I&O: 09/13/18 09/14/18 09/15/18 06:59 06:59 06:59 Intake Total 1000 680 Output Total 1620 2500 Balance -620 -1820 Result Diagrams: 09/14/18 04:47 09/14/18 04:47 Phys Exam - Physical Examination Constitutional: NAD Obese HEENT: moist MMs Respiratory: no wheezing, no rales, no rhonchi Cardiovascular: RRR, no significant murmur Neurological: non-focal, moves all 4 limbs Psychiatric: normal affect, A&O x 3 Dx/Plan (1) Acute and chronic respiratory failure with hypoxia Code(s): J96.21 - ACUTE AND CHRONIC RESPIRATORY FAILURE WITH HYPOXIA Status: Acute Comment: required bipap, currently off on bipap (2) Acute on chronic diastolic CHF (congestive heart failure) Code(s): I50.33 - ACUTE ON CHRONIC DIASTOLIC (CONGESTIVE) HEART FAILURE Status : Acute Comment: Cardiology following, transitioned to oral Lasix (3) COPD exacerbation Code(s): J44.1 - CHRONIC OBSTRUCTIVE PULMONARY DISEASE W (ACUTE) EXACERBATION Status: Acute Comment: continue respiratory therapy (4) Demand ischemia Code(s): I24.8 - OTHER FORMS OF ACUTE ISCHEMIC HEART DISEASE Status: Acute (5) Dyslipidemia Code(s): E78.5 - HYPERLIPIDEMIA, UNSPECIFIED Status: Chronic (6) GERD (gastroesophageal reflux disease) Code(s): K21.9 - GASTRO-ESOPHAGEAL REFLUX DISEASE WITHOUT ESOPHAGITIS Status: Chronic (7) Glaucoma Code(s): H40.9 - UNSPECIFIED GLAUCOMA Status: Chronic (8) HTN (hypertension) Code(s): I10 - ESSENTIAL (PRIMARY) HYPERTENSION Status: Chronic Qualifiers: Hypertension type: essential hypertension Qualified Code(s): I10 - Essential (primary) hypertension Comment: (9) Obesity (BMI 30-39.9) Code(s): E66.9 - OBESITY, UNSPECIFIED Status: Chronic - Plan cont current plan of care, continue antibiotics, PT/OT, DVT proph w/lovenox, DVT proph w/SCDs Transitioned to oral diuretics -: Off Bipap and transfered to tele -: Ambulating well with PT and can go home with home health when -: improved sufficiently from pulmonary standpoint, uncertain if will -: need home O2 at this point * . - Discharge Day Encounter end time: 12:00
[2018-09-14] MEDS: Polyethylene Glycol OPTH DROP 15 ML BOT EA EYE SCH (12:07)
--- NOTE | 2018-09-14 17:24 | PDOC.CTH ---
Cardiology Progress Note - Subjective No new issues. Breathing close to baseline. - Objective Vital Signs Temp Pulse Pulse Resp BP BP Pulse Ox 09/14/18 16:09 73 09/14/18 16:06 98.9 F 84 16 175/77 H 90 L 09/14/18 14:13 62 124/75 09/14/18 12:25 73 16 91 L 09/14/18 12:08 98.7 F 72 16 125/61 89 L 09/14/18 09:30 90 L 09/14/18 07:45 98.1 F 82 16 173/76 H 90 L 09/14/18 07:22 77 18 91 L 09/14/18 07:19 77 18 91 L Pulse Ox Pulse Ox Pulse Ox 09/14/18 16:09 09/14/18 16:06 09/14/18 14:13 83 L 85 L 85 L 09/14/18 12:25 09/14/18 12:08 09/14/18 09:30 09/14/18 07:45 09/14/18 07:22 09/14/18 07:19 Admit Weight 208 lb 12.444 oz Weight 209 lb 9.6 oz 09/13/18 09/14/18 09/15/18 06:59 06:59 06:59 Intake Total 1000 680 Output Total 1620 2500 Balance -620 -1820 - Physical Examination General/Neuro: alert & oriented x3, NAD Neck: no JVD present Lungs: unlabored respirations Heart: RRR Abdomen: NT/ND Extremities: + edema B (trace) - Telemetry Telemetry Rhythm: NSR - Labs Result Diagrams: 09/14/18 04:47 09/14/18 04:47 Troponin/CKMB CK-MB (CK-2) 1.5 ng/mL (0-6.6) 09/11/18 20:07 Troponin I 0.072 ng/mL (< 0.028) H 09/12/18 02:14 - Assessment/Plan 1. Acute on chronic diastolic heart failure 2. Bronchial asthma 3. Mildly elevated pulmonary presssures. 4. HTN PLAN: - On PO Lasix tomorrow. - Continue home meds for BP control. - Home any time from cardiac perspective. - Will sign off. Please call with any questions.
--- NOTE | 2018-09-14 18:03 | PRG ---
DATE OF SERVICE: 09/14/2018 SUBJECTIVE: Ms. Mauro says she is feeling better. OBJECTIVE: She is afebrile. Heart rate is 84, respiratory rate 16, oximetry is 90 on 3 L, blood pressure 124/75. LUNGS: Remarkable for no wheezes. She is surprisingly clear. HEART: Regular rhythm. S1, S2 are normal. ABDOMEN: Soft and nontender. EXTREMITIES: With only trace edema. She is in sinus rhythm. LABORATORY DATA: White count is 15.2, hemoglobin 10.0, platelets 216. Sodium 140, potassium 4, chloride 97, bicarb 35, BUN 24, and creatinine 0.61. IMPRESSION: 1. Acute on chronic diastolic heart failure. 2. Diabetes. 3. Obesity. 4. Chronic persistent asthma. 5. Extreme deconditioning due to obesity. 6. History of knee replacement. 7. History of femur fracture repaired in early 2018 with slow progress physically after that. PLAN: Continue supportive care. Appears to be clinically stable at this time. Continue nebulizer treatments. Currently not bronchospastic, but if she starts wheezing again, we could probably cut her metoprolol dose pack, she is on a total of 200 mg a day. Job ID: [id number]
[2018-09-14] MEDS: Atorvastatin Calcium 20 MG TAB PO SCH (20:29)
[2018-09-14] MEDS: Latanoprost 0.005% Ophth Soln 2.5 ml Bottle EA EYE SCH (20:29)
[2018-09-15] MEDS: Mometasone 200 MCG HFA INHALER INH SCH ×2 (06:00→19:35)
[2018-09-15] MEDS: Fish Oil 1,000 MG CAP PO SCH (08:43)
[2018-09-15] MEDS: Vit A,C & E/Lutein/Minerals Tablet PO SCH (08:43)
[2018-09-15] MEDS: hydrALAZINE 25 MG TAB PO SCH ×3 (08:44→20:14)
[2018-09-15] MEDS: Metoprolol Tartrate 100 MG TAB PO SCH ×2 (08:44→20:15)
[2018-09-15] MEDS: Lisinopril 20 MG TAB PO SCH ×2 (08:44→20:13)
[2018-09-15] MEDS: cloNIDine 0.2 MG TAB PO SCH ×3 (08:44→20:15)
[2018-09-15] MEDS: carBAMazepine 200 MG TAB PO SCH ×2 (08:44→20:14)
[2018-09-15] MEDS: Saccharomyces boulardii 250 MG CAP PO SCH (08:44)
[2018-09-15] MEDS: Aspirin 81 mg Enteric Coated Tablet PO SCH (08:44)
[2018-09-15] MEDS: Calcium Carbonate 500 MG ChewTAB PO SCH (08:44)
[2018-09-15] MEDS: Famotidine 20 MG TAB PO SCH ×2 (08:44→20:14)
[2018-09-15] MEDS: Enoxaparin Sodium 40 MG/0.4 ML SYRINGE SC SCH (08:45)
[2018-09-15] MEDS: Cefepime 2 GM in Sodium Chloride 0.9% 100 ML IVPB SCH ×2 (08:45→20:13)
[2018-09-15] MEDS: Furosemide 40 MG TAB PO SCH (08:45)
[2018-09-15] MEDS: Polyethylene Glycol 3350 17 GM Packet PO SCH (08:46)
--- NOTE | 2018-09-15 09:21 | PDOC.PN ---
- Subjective Encounter Start Date: 09/15/18 Encounter Start Time: 10:15 Subjective: Patient feeling a bit better. Still not back to baseline and still -: requiring supplementary oxygen. Decreased wheezing and cough. - Objective Resuscitation Status - Order Detail: 09/12/18 01:36 Resuscitation Status Routine Resuscitation Status: FULL: Full Resuscitation MAR Reviewed: Yes Vital Signs & Weight: Vital Signs (12 hours) Temp Pulse Resp BP Pulse Ox 09/15/18 07:33 98.6 F 84 21 H 177/79 H 88 L 09/15/18 06:00 77 14 93 L 09/15/18 05:58 77 14 93 L 09/15/18 03:55 98.2 F 70 18 149/67 H 89 L 09/15/18 00:28 75 16 92 L Weight Admit Weight 208 lb 12.444 oz Weight 210 lb Most Recent Monitor Data Heart Rate from ECG 70 NIBP 133/56 NIBP BP-Mean 81 Respiration from ECG 18 SpO2 96 I&O: 09/14/18 09/15/18 09/16/18 06:59 06:59 06:59 Intake Total 680 Output Total 2500 425 Balance -1820 -425 Result Diagrams: 09/14/18 04:47 09/14/18 04:47 Phys Exam - Physical Examination Constitutional: NAD HEENT: moist MMs occ crackles and wheeze in bases Cardiovascular: RRR, no significant murmur Gastrointestinal: soft, positive bowel sounds Neurological: non-focal, moves all 4 limbs Psychiatric: normal affect, A&O x 3 Dx/Plan (1) Acute and chronic respiratory failure with hypoxia Code(s): J96.21 - ACUTE AND CHRONIC RESPIRATORY FAILURE WITH HYPOXIA Status: Acute Comment: required bipap, currently off on bipap, may need home O2 (2) Acute on chronic diastolic CHF (congestive heart failure) Code(s): I50.33 - ACUTE ON CHRONIC DIASTOLIC (CONGESTIVE) HEART FAILURE Status : Acute Comment: Cardiology signed off, transitioned to oral Lasix (3) COPD exacerbation Code(s): J44.1 - CHRONIC OBSTRUCTIVE PULMONARY DISEASE W (ACUTE) EXACERBATION Status: Acute Comment: continue respiratory therapy (4) Demand ischemia Code(s): I24.8 - OTHER FORMS OF ACUTE ISCHEMIC HEART DISEASE Status: Acute (5) Dyslipidemia Code(s): E78.5 - HYPERLIPIDEMIA, UNSPECIFIED Status: Chronic (6) GERD (gastroesophageal reflux disease) Code(s): K21.9 - GASTRO-ESOPHAGEAL REFLUX DISEASE WITHOUT ESOPHAGITIS Status: Chronic (7) Glaucoma Code(s): H40.9 - UNSPECIFIED GLAUCOMA Status: Chronic (8) HTN (hypertension) Code(s): I10 - ESSENTIAL (PRIMARY) HYPERTENSION Status: Chronic Qualifiers: Hypertension type: essential hypertension Qualified Code(s): I10 - Essential (primary) hypertension Comment: (9) Obesity (BMI 30-39.9) Code(s): E66.9 - OBESITY, UNSPECIFIED Status: Chronic - Plan cont current plan of care, continue antibiotics, respiratory therapy Will d/c home when ok with pulmonology. Currently still on IV abx. Will -: check RA O2 sats as patient may need home O2. * . - Discharge Day Encounter end time: 10:30
[2018-09-15] MEDS: Polyethylene Glycol OPTH DROP 15 ML BOT EA EYE SCH (12:25)
[2018-09-15] MEDS: Latanoprost 0.005% Ophth Soln 2.5 ml Bottle EA EYE SCH (20:13)
[2018-09-15] MEDS: Atorvastatin Calcium 20 MG TAB PO SCH (20:14)
[2018-09-16] MEDS: Mometasone 200 MCG HFA INHALER INH SCH (05:56)
[2018-09-16] MEDS: Fish Oil 1,000 MG CAP PO SCH (08:17)
[2018-09-16] MEDS: Famotidine 20 MG TAB PO SCH (08:17)
[2018-09-16] MEDS: hydrALAZINE 25 MG TAB PO SCH ×2 (08:18→15:47)
[2018-09-16] MEDS: Furosemide 40 MG TAB PO SCH (08:18)
[2018-09-16] MEDS: Aspirin 81 mg Enteric Coated Tablet PO SCH (08:18)
[2018-09-16] MEDS: Lisinopril 20 MG TAB PO SCH (08:18)
[2018-09-16] MEDS: cloNIDine 0.2 MG TAB PO SCH ×2 (08:18→15:47)
[2018-09-16] MEDS: Calcium Carbonate 500 MG ChewTAB PO SCH (08:18)
[2018-09-16] MEDS: Saccharomyces boulardii 250 MG CAP PO SCH (08:19)
[2018-09-16] MEDS: Metoprolol Tartrate 100 MG TAB PO SCH (08:19)
[2018-09-16] MEDS: Enoxaparin Sodium 40 MG/0.4 ML SYRINGE SC SCH (08:19)
[2018-09-16] MEDS: Vit A,C & E/Lutein/Minerals Tablet PO SCH (08:19)
[2018-09-16] MEDS: carBAMazepine 200 MG TAB PO SCH (08:19)
[2018-09-16] MEDS: Polyethylene Glycol 3350 17 GM Packet PO SCH (08:20)
[2018-09-16] MEDS: Polyethylene Glycol OPTH DROP 15 ML BOT EA EYE SCH (12:00)
[2018-09-16] MEDS: Cefepime 2 GM in Sodium Chloride 0.9% 100 ML IVPB SCH (15:48)
[2018-09-16 15:59] VITALS: BP 149/67; TEMP 99
--- NOTE | 2018-09-17 09:42 | DIS ---
DATE OF ADMISSION: 09/11/2018 DATE OF DISCHARGE: 09/16/2018 PRIMARY CARE PHYSICIAN: Saleem Tripathi MD DISCHARGE DIAGNOSES: 1. Acute on chronic hypoxic respiratory failure secondary to #2 and #3. 2. Acute on chronic diastolic congestive heart failure with preserved ejection fraction of 60% to 65%. 3. Acute chronic obstructive pulmonary disease exacerbation, improved. 4. Demand ischemia. 5. Hypertension, stable. 6. Deconditioning. CONSULTATIONS: 1. William Iglesias MD and Michelet Benedict MD with Pulmonology Service. 2. Dr. Flaco Painter MD with Cardiology Service. PERTINENT LAB AND X-RAY FINDINGS: Troponin I ranged between 0.072 to 0.084. BNP 692, previously noted 171 on 09/27/2016. TSH 0.46. CBC showed a white blood cell count ranging between 15.2 to 24.1, hemoglobin ranged between 10.7 to 11.5. Portable chest x-ray dated 09/11/2018, showed cardiomegaly with pulmonary edema. 2D transthoracic echocardiogram dated 09/12/2018 showed ejection fraction of 60% to 65%. Grade 1 of 3 diastolic dysfunction. Moderate left atrial enlargement. HOSPITAL COURSE: The patient was initially admitted to the intermediate care unit after presenting with increased shortness of breath and hypoxia in the context of known chronic obstructive pulmonary disease. The patient underwent chest imaging showing evidence of pulmonary edema, placed on IV Lasix. The patient was also given BiPAP noninvasive mechanical ventilation in the intermediate care unit. The patient was evaluated by the Pulmonology Service with recommendations for bronchodilator therapy as well as Solu-Medrol and antibiotics to include cefepime and Zithromax. The patient clinically stabilized in regard to respiratory status; however, continued to have oxygen requirement at 2 to 3 L/minute by nasal cannula for the remainder of the hospital course. The patient was also treated for diastolic heart failure exacerbation with IV Lasix with overall improvement in respiratory status and volume management with diuretic therapy. 2D transthoracic echocardiogram was performed showing an ejection fraction of 60% to 65% with grade 1/3 diastolic dysfunction. Due to the patient's overall deconditioned status as well as ongoing oxygen requirement, the patient was deemed an appropriate candidate for ongoing skilled care. The patient approved for supervised medical care in the [facility] on 09/16/2018. I have examined the patient at the time of discharge and discussed followup instructions. The patient verbalizes understanding and agreement, ready for discharge on 09/16/2018. DISCHARGE MEDICATIONS: 1. Ventolin HFA 2 puffs inhaled q.6 hours p.r.n. 2. Beano 1 tablet p.o. daily p.r.n. 3. Enteric-coated aspirin 81 mg p.o. daily. 4. Lipitor 20 mg p.o. at bedtime. 5. Carbamazepine 200 mg p.o. b.i.d. 6. Clonidine 0.2 mg p.o. t.i.d. 7. Flovent HFA 2 puffs inhaled b.i.d. 8. Hydralazine 50 mg p.o. t.i.d. 9. Lisinopril 20 mg p.o. b.i.d. 10. Metoprolol tartrate 100 mg p.o. b.i.d. 11. [place]-3 fatty acids 1 capsule p.o. daily. 12. Protonix 40 mg p.o. daily. 13. Multivitamin 2 tablets p.o. daily. 14. Cefepime 2 g IV q.12 hours until 09/19/2018. 15. Lasix 40 mg p.o. daily. 16. DuoNeb 3 mL nebulized q.6 hours p.r.n. 17. Florastor 250 mg p.o. daily. FOLLOWUP: The patient followup with her primary care provider, Dr. Saleem Tripathi. The patient followup with Dr. Painter with Cardiology Service on 09/27/2018 at 10:15 a.m. CONDITION ON DISCHARGE: Stable. ACTIVITY: Ad mando, rolling walker with standby assistance. SPECIAL INSTRUCTIONS: Continue oxygen supplementation at 2 L/minute by nasal cannula to maintain O2 saturations greater than or equal to 90%. DIET: Heart healthy. CODE STATUS: Full. DISPOSITION: Discharged to [facility] on 09/16/2018. TIME SPENT: Total time preparing and coordinating discharge, 34 minutes. Job ID: [id number]
== END 2018-09-16 16:55 | disposition swing bed (61) | DRG 291 ==
LOC: ERS 19:28 → CCU 21:47 → 2NO 09-12 19:04
PROVIDERS: ADMIT Internal Medicine; ATTEND Internal Medicine
PROC: 5A09357 Assistance with Respiratory Ventilation, Less than 24 Consecutive Hours, Continuous Positive Airway Pressure (ICD-10-PCS; principal; 2018-09-11)
DX: I11.0 Hypertensive heart disease with heart failure (principal); J96.21 Acute and chronic respiratory failure with hypoxia; J44.1 Chronic obstructive pulmonary disease with (acute) exacerbation; I24.8 Other forms of acute ischemic heart disease; I50.33 Acute on chronic diastolic (congestive) heart failure; E66.01 Morbid (severe) obesity due to excess calories; E11.9 Type 2 diabetes mellitus without complications; L21.9 Seborrheic dermatitis, unspecified; K21.9 Gastro-esophageal reflux disease without esophagitis; E78.5 Hyperlipidemia, unspecified; Z68.38 Body mass index [BMI] 38.0-38.9, adult; Z88.5 Allergy status to narcotic agent; Z79.82 Long term (current) use of aspirin; Z79.899 Other long term (current) drug therapy; Z96.651 Presence of right artificial knee joint; Z96.612 Presence of left artificial shoulder joint
CPT/HCPCS: 36415; 71045; 80048; 80053; 82553; 82805; 83880; 84443; 84484; 85025; 93005; 93306; 93798; 94640; 94660; 94664; 96365; 96366; 96368; 96375; J0456; J0692; J0696; J1650; J1940; J2930; J3370; J7050; J7620

== ENCOUNTER 2018-12-23 06:54 | Day surgery (SDC) | payer MEDICARE ==
[2018-12-22 14:01] VITALS: BMI 37.8
[2018-12-23] MEDS ORDERED: Midazolam HCl 2 mg/2 ml Vial ONE (09:37)
[2018-12-23] MEDS ORDERED: Iopamidol 370 76% 100 ML VIAL ONE (10:28)
== END 2018-12-23 13:15 | disposition home or self-care (01) ==
LOC: CCL 06:54
PROVIDERS: ATTEND Internal Medicine Cardiovascular Disease
PROC: 4A023N7 Measurement of Cardiac Sampling and Pressure, Left Heart, Percutaneous Approach (ICD-10-PCS; principal; 2018-12-23)
PROC: B2051ZZ Plain Radiography of Left Heart using Low Osmolar Contrast (ICD-10-PCS; 2018-12-23)
DX: I50.32 Chronic diastolic (congestive) heart failure (principal); I10 Essential (primary) hypertension; J44.9 Chronic obstructive pulmonary disease, unspecified; Z88.5 Allergy status to narcotic agent; Z88.8 Allergy status to other drugs, medicaments and biological substances
CPT/HCPCS: 93458; 99152; C1760; C1769; J1644; J2250

== ENCOUNTER 2019-03-27 21:13 | Inpatient (IN) | payer MEDICARE ==
[2019-03-27] MEDS ORDERED: cloNIDine 0.1 MG TAB ONE (21:44)
[2019-03-27] MEDS ORDERED: Albuterol Sulfate 2.5 mg/3 ml Neb ONE (21:55)
[2019-03-27] MEDS ORDERED: Albuterol Sulfate 2.5 mg/3 ml Neb NEB PRN (23:30)
[2019-03-27 23:39] VITALS: BMI 36.8
[2019-03-28] MEDS ORDERED: Benzonatate 100 MG CAP PO PRN (01:25)
[2019-03-28] MEDS ORDERED: hydrALAZINE 20 MG/ML VIAL SLOW IVP PRN (01:25)
[2019-03-28] MEDS ORDERED: Acetaminophen 500 MG TAB PO PRN (01:25)
[2019-03-28] MEDS ORDERED: Guaifenesin DM 100-10/5 ML UDCUP PO PRN (01:25)
[2019-03-28] MEDS ORDERED: Ondansetron PF 4 MG/2 ML Vial IVP PRN (01:25)
[2019-03-28] MEDS ORDERED: Ondansetron ODT 4 MG TAB PO PRN (01:25)
[2019-03-28 05:19] LABS: Band 3 % (5-11); Hemoglobin 11.5 g/dL (12.0-16.0); Lymphocytes 5 % (21-51); MDiff Complete? YES; Mean Corpuscular HGB CONC 29.9 g/dL (32.0-36.0); Mean Corpuscular Hemoglobin 25.1 pg (27.0-31.0); Neutrophil 92 % (42-75); Platelet Count 185 thou/uL (130-400); Platelet Morphology Comment Appears Adequate; RBC Distribution Width 15.3 % (11.5-14.5); RBC Morphology Normal; Red Blood Cell (RBC) Count 4.58 mill/uL (4.20-5.40); White Blood Cell (WBC) Count 10.4 thou/uL (4.8-10.8)
[2019-03-28 05:20] LABS: Anion Gap 13 mmol/L (10-20); BUN (Urea Nitrogen) 13 mg/dL (9.8-20.1); Calc. Creatinine Clearance 106 mL/min (70-130); Calcium 9.5 mg/dL (7.8-10.44); Carbon Dioxide 29 mmol/L (23-31); Chloride 103 mmol/L (98-107); Estimated GFR-MDRD Greater than 90; Glucose 167 mg/dL (83-110); Potassium 3.7 mmol/L (3.5-5.1); Sodium 141 mmol/L (136-145)
[2019-03-28] MEDS: methylPREDNISolone Sod Succ 40 MG VIAL IVP SCH ×4 (06:08→23:33)
[2019-03-28] MEDS: Mometasone/Formoterol 120 PUFF INHALER INH SCH ×2 (06:56→19:16)
[2019-03-28] MEDS ORDERED: Spiriva 18 MCG CAP (Box of 5 Caps) INH SCH (07:00)
[2019-03-28] MEDS ORDERED: Sodium Chloride 0.65% Nasal 44 ML BOT EA NARE PRN (07:13)
[2019-03-28] MEDS ORDERED: Bisacodyl 10 MG SUPP PR PRN (07:13)
[2019-03-28] MEDS ORDERED: Zolpidem Tartrate 5 MG TAB PO PRN (07:13)
[2019-03-28] MEDS ORDERED: Loperamide HCl 2 MG CAP PO PRN (07:13)
[2019-03-28] MEDS ORDERED: Senokot S 8.6-50 MG TAB PO PRN (07:13)
[2019-03-28] MEDS ORDERED: Diabetic Tussin 200 MG/10 ML UDCUP PO PRN (07:13)
[2019-03-28] MEDS ORDERED: Calcium Carbonate 500 MG ChewTAB PO PRN (07:13)
[2019-03-28] MEDS ORDERED: Loratadine 10 MG TAB PO PRN (07:13)
[2019-03-28] MEDS ORDERED: Cepastat Lozenges 1 LOZ PO PRN (07:13)
--- NOTE | 2019-03-28 07:50 | HP ---
PRIMARY CARE PROVIDER: Saleem Tripathi MD. CHIEF COMPLAINT: Shortness of breath. HISTORY OF PRESENT ILLNESS: This is an 83-year-old female who presents to [facility] Emergency Department and transferred from [place] [facility] after concern for increasing shortness of breath, hypoxemia, and COPD exacerbation. The patient with longstanding history of chronic obstructive pulmonary disease, previously treated with home oxygen, apparently discontinued in January 2019. The patient states she has been compliant with her pulmonary medications including a bronchodilator therapy and metered-dose inhaler use. The patient denied any documented fever, chills, or exposure history and denied recent travel. The patient was treated for similar presentation in September 2018 transitioning to swing bed in [place] for convalescence. The patient discharged home and has been home over the last 6 to 7 months. The patient denied any increased lower extremity edema, documented weight gain, hemoptysis, nausea, vomiting, or diarrhea. In the emergency room, the patient underwent general evaluation including chest imaging showing no acute infiltrate. The patient received albuterol sulfate, clonidine, Solu-Medrol, DuoNeb, and cefepime. The patient was transferred to the medical floor for further evaluation. PAST MEDICAL HISTORY: 1. [id number] hypoxic respiratory failure. 2. Chronic obstructive pulmonary disease. 3. Chronic diastolic congestive heart failure with ejection fraction of 60% to 65%. 4. Hypertension. 5. Osteoarthritis. 6. Morbid obesity. 7. Trigeminal neuralgia. 8. Gastroesophageal reflux disease. 9. Right femur fracture, status post mechanical fall. 10. Hyperlipidemia. PAST SURGICAL HISTORY: 1. Status post left femoral head replacement. 2. Status post cardiac catheterization with normal coronary anatomy, 12/2018. 3. Status skin cancer removal. 4. Status post right breast cyst removal. 5. Status post right total knee arthroplasty. 6. Status post open reduction and internal fixation of right femur fracture. CURRENT MEDICATIONS: 1. Ventolin HFA 2 puffs inhaled daily p.r.n. 2. Enteric-coated aspirin 81 mg p.o. daily. 3. Lipitor 20 mg p.o. at bedtime. 4. Lumigan 0.01% 1 drop to each eye at bedtime. 5. Carbamazepine 200 mg p.o. b.i.d. 6. Clonidine 0.2 mg p.o. t.i.d. 7. Flovent 2 puffs inhaled b.i.d. 8. Hydralazine 50 mg p.o. t.i.d.. 9. Lisinopril 20 mg p.o. b.i.d. 10. Lopressor 100 mg p.o. b.i.d.. 11. [place]-3 fatty acids 1 capsule p.o. daily. 12. Protonix 40 mg p.o. daily. 13. Multivitamin 2 tablets p.o. daily. 14. Lasix 40 mg p.o. daily. ALLERGIES: TO FENTANYL, HYDROCODONE, MORPHINE SULFATE. FAMILY HISTORY: No inheritable diseases per the patient report. SOCIAL HISTORY: Resides in [place], [place]. Retired. No current alcohol, tobacco, or illicit drug use. Independent with activities of daily living. REVIEW OF SYSTEMS: CONSTITUTIONAL: Negative for weight loss or gain, ability to conduct usual activities. SKIN: Negative for rash, itching. EYES: Negative for double vision, pain. ENT/MOUTH: Negative for nose bleeding, neck stiffness, pain, tenderness. CARDIOVASCULAR: Negative for palpitations, dyspnea on exertion, orthopnea. RESPIRATORY: Negative for shortness of breath, wheezing, cough, hemoptysis, fever or night sweats. GASTROINTESTINAL: Negative for poor appetite, abdominal pain, heartburn, nausea , vomiting, constipation, or diarrhea. GENITOURINARY: Negative for urgency, frequency, dysuria, nocturia. MUSCULOSKELETAL: Negative for pain, swelling. NEUROLOGIC/PSYCHIATRIC: Negative for anxiety, depression. ALLERGY/IMMUNOLOGIC: Negative for skin rash, bleeding tendency. Otherwise negative except as stated per HPI. PHYSICAL EXAMINATION: VITAL SIGNS: On admission, blood pressure 150/77, pulse 107, respiratory rate 20, temperature 98.6 degrees Fahrenheit, O2 saturation 92% on 3 L/minute by nasal cannula. GENERAL APPEARANCE: This is an 83-year-old female, alert and oriented x3, pleasant, in no acute distress. HEENT: Pupils are equal, round, reactive to light and accommodation. Extraocular muscles are intact. No scleral icterus. No conjunctival injection. Nares are patent. OP is clear. Teeth in fair repair. NECK: Supple. No cervical adenopathy. No thyromegaly. No carotid bruits. No JVD appreciated. Cervical spine with full active and passive range of motion. No meningeal signs noted. CHEST: Inspiratory and expiratory wheezing bilaterally. Diminished air flow in the bases bilaterally. CARDIOVASCULAR: S1, S2 with holosystolic murmur, loudest in the left upper sternal border and apex. ABDOMEN: Obese, soft, nontender, and nondistended. Landmarks are difficult to palpate due to the patient's body habitus. Bowel sounds are positive in all 4 quadrants. EXTREMITIES: Warm and dry with fair turgor. No clubbing, cyanosis, or asymmetric edema appreciated. Pulses are palpable distally at the dorsalis pedis, posterior tibial, and popliteal arteries bilaterally. Capillary refill less than 2 seconds. NEUROLOGIC: Cranial nerves 2 through 12 are grossly intact. No focal or lateralizing signs appreciated. PERTINENT LABORATORY AND X-RAY FINDINGS: Basic metabolic profile within normal limits. hemoglobin A1c 5.8, 01/11/2019. Lactic acid level 0.9, calcium 9.4. LFTs within normal limits. BNP 418, previously noted 692, 09/11/2018. CBC showed a white blood cell count of 12.5, hemoglobin 12, hematocrit 40, platelet count 207 with 83% neutrophils. Venous blood gas dated 03/27/2019 showed a pH of 7.314, pCO2 of 64.3, pO2 of 82, bicarb 32.6. Portable chest x-ray dated 03/27/2019 showed no acute cardiopulmonary process. ASSESSMENT AND PLAN: 1. [id number] hypoxemic respiratory failure. The patient will be admitted to the medical floor. Suspect secondary to chronic obstructive pulmonary disease exacerbation. We will continue aggressive pulmonary supportive management. Oxygen as needed to maintain O2 saturations greater than or equal to 90%. See #2 below for full management. 2. Acute chronic obstructive pulmonary disease exacerbation. DuoNebs q.4 hours with additional Dulera 2 puffs inhaled b.i.d. Add Spiriva 17mcg inhaled daily. Solu-Medrol 40 mg IV q.6 hours. Levaquin 750 mg IV daily. 3. Hypertension. Resume home blood pressure regimen and monitor clinical response. Hydralazine as needed for systolic blood pressure greater than or equal to 170. 4. Deconditioning. PT evaluation for functional assessment. General fall risk precautions. 5. Prophylaxis. SCDs while in bed. Pepcid 20 mg p.o. b.i.d. 6. Code status is full. Surrogate medical decision maker is the patient's son. Job ID: [id number] MTDD
[2019-03-28] MEDS: cloNIDine 0.2 MG TAB PO SCH ×3 (08:04→20:27)
[2019-03-28] MEDS: Lisinopril 20 MG TAB PO SCH ×2 (08:04→20:27)
[2019-03-28] MEDS: carBAMazepine 200 MG TAB PO SCH ×2 (08:05→20:27)
[2019-03-28] MEDS: Metoprolol Tartrate 100 MG TAB PO SCH ×2 (08:05→20:27)
[2019-03-28] MEDS: hydrALAZINE 25 MG TAB PO SCH ×3 (08:05→20:27)
[2019-03-28] MEDS: Famotidine 20 MG TAB PO SCH ×2 (08:05→20:28)
[2019-03-28] MEDS: Furosemide 40 MG TAB PO SCH (08:05)
[2019-03-28] MEDS: Aspirin 81 mg Enteric Coated Tablet PO SCH (08:05)
[2019-03-28] MEDS ORDERED: Prevnar 13-Val Conj/PF 0.5 ML SYRINGE IM ONE (09:00)
--- NOTE | 2019-03-28 10:52 | PDOC.PN ---
- Subjective Encounter Start Date: 03/28/19 Encounter Start Time: 08:40 -: old records requested/rev Patient seen and examined. No overnight events, pt still has cough with sputum and dyspnea - Objective Resuscitation Status - Order Detail: 03/28/19 01:16 Resuscitation Status Routine Resuscitation Status: FULL: Full Resuscitation MAR Reviewed: Yes Vital Signs & Weight: Vital Signs (12 hours) Temp Pulse Resp BP BP BP Pulse Ox 03/28/19 10:22 99 20 93 L 03/28/19 08:05 104 H 03/28/19 08:04 152/80 H 03/28/19 07:46 98.2 F 104 H 20 152/80 H 92 L 03/28/19 06:51 105 H 22 H 90 L 03/28/19 03:43 98.8 F 103 H 20 148/54 H 93 L 03/28/19 02:20 101 H 20 92 L 03/27/19 23:32 92 L 03/27/19 23:28 98.6 F 107 H 20 150/77 H 92 L Weight Weight 201 lb 1 oz I&O: 03/27/19 03/28/19 03/29/19 06:59 06:59 06:59 Intake Total 870 Balance 870 Result Diagrams: 03/28/19 04:42 03/28/19 04:42 Radiology Reviewed by me: Yes Phys Exam - Physical Examination Constitutional: NAD HEENT: PERRLA, moist MMs, sclera anicteric Neck: no JVD, supple Respiratory: no rales, wheezing present Cardiovascular: RRR, no significant murmur, no rub Gastrointestinal: soft, non-tender, no distention, positive bowel sounds Musculoskeletal: no edema, pulses present Neurological: non-focal, normal sensation Lymphatic: no nodes Psychiatric: normal affect, A&O x 3 Skin: no rash, normal turgor Dx/Plan (1) Acute and chronic respiratory failure with hypoxia Code(s): J96.21 - ACUTE AND CHRONIC RESPIRATORY FAILURE WITH HYPOXIA Status: Acute Comment: (2) COPD exacerbation Code(s): J44.1 - CHRONIC OBSTRUCTIVE PULMONARY DISEASE W (ACUTE) EXACERBATION Status: Acute Comment: continue respiratory therapy (3) Chronic stage c diastolic heart failure Code(s): I50.32 - CHRONIC DIASTOLIC (CONGESTIVE) HEART FAILURE Status: Chronic (4) Dyslipidemia Code(s): E78.5 - HYPERLIPIDEMIA, UNSPECIFIED Status: Chronic (5) GERD (gastroesophageal reflux disease) Code(s): K21.9 - GASTRO-ESOPHAGEAL REFLUX DISEASE WITHOUT ESOPHAGITIS Status: Chronic (6) Glaucoma Code(s): H40.9 - UNSPECIFIED GLAUCOMA Status: Chronic (7) HTN (hypertension) Code(s): I10 - ESSENTIAL (PRIMARY) HYPERTENSION Status: Chronic Qualifiers: Comment: (8) Obesity (BMI 30-39.9) Code(s): E66.9 - OBESITY, UNSPECIFIED Status: Chronic (9) Pulmonary hypertension Code(s): I27.20 - PULMONARY HYPERTENSION, UNSPECIFIED Status: Chronic - Plan cont current plan of care, continue antibiotics, respiratory therapy * currently on empiric levaquin * continue solumderol * continue duoneb, dulera * add mucinex * pulmonary consulted * wean off oxygen as tolerated * continue PT * medication reviewed as below * symptomatic treatment. Review of Systems - Review of Systems ENT: negative: Ear Pain, Ear Discharge, Nose Pain, Nose Discharge, Nose Congestion, Mouth Pain, Mouth Swelling, Throat Pain, Throat Swelling, Other Respiratory: Cough, Shortness of Breath, SOB with Excertion, Sputum, Wheezing. negative: Dry, Hemoptysis, Pleuritic Pain Cardiovascular: negative: chest pain, palpitations, orthopnea, paroxysmal nocturnal dyspnea, edema, light headedness, other Gastrointestinal: negative: Nausea, Vomiting, Abdominal Pain, Diarrhea, Constipation, Melena, Hematochezia, Other Genitourinary: negative: Dysuria, Frequency, Incontinence, Hematuria, Retention , Other Musculoskeletal: negative: Neck Pain, Shoulder Pain, Arm Pain, Back Pain, Hand Pain, Leg Pain, Foot Pain, Other Skin: negative: Rash, Lesions, Cornell, Bruising, Other - Medications/Allergies Allergies/Adverse Reactions: Allergies Allergy/AdvReac Type Severity Reaction Status Date / Time fentanyl Allergy Verified 03/27/19 23:41 hydrocodone bitartrate Allergy Verified 03/27/19 23:41 [From Vicodin] morphine Allergy Verified 03/27/19 23:41 lettuce Allergy Uncoded 12/22/18 14:01 Medications: Current Medications Acetaminophen (Tylenol) 1,000 mg PO Q6H PRN PRN Reason: Mild Pain (1-3) Albuterol/Ipratropium (Duoneb) 3 ml NEB [id number] [facility] Last Admin: 03/28/19 10:22 Dose: 3 ml Aspirin (Ecotrin) 81 mg PO DAILY [facility] Last Admin: 03/28/19 08:05 Dose: 81 mg Atorvastatin Calcium (Lipitor) 20 mg PO HS [facility] Benzonatate (Tessalon) 100 mg PO Q6H PRN PRN Reason: Cough Bisacodyl (Dulcolax) 10 mg [place] DAILYPRN PRN PRN Reason: Constipation Calcium Carbonate (Tums) 1,000 mg PO Q4H PRN PRN Reason: Heartburn or Indigestion Carbamazepine (Tegretol) 200 mg PO BID [facility] Last Admin: 03/28/19 08:05 Dose: 200 mg Clonidine (Catapres) 0.2 mg PO TID [facility] Last Admin: 03/28/19 08:04 Dose: 0.2 mg Famotidine (Pepcid) 20 mg PO BID [facility] Last Admin: 03/28/19 08:05 Dose: 20 mg Furosemide (Lasix) 40 mg PO DAILY [facility] Last Admin: 03/28/19 08:05 Dose: 40 mg Guaifenesin (Robitussin Sf) 200 mg PO Q4H PRN PRN Reason: Cough Hydralazine HCl (Apresoline) 10 mg SLOW IVP Q4H PRN PRN Reason: SBP > 180 and HR < 70 Hydralazine HCl (Apresoline) 50 mg PO TID [facility] Last Admin: 03/28/19 08:05 Dose: 50 mg Levofloxacin 750 mg/ Device 150 mls @ 100 mls/hr IVPB Q24HR [facility] Last Admin: 03/28/19 02:58 Dose: 150 mls Latanoprost (Xalatan 0.005% [facility] Soln) 1 drop EA EYE HS [facility] Lisinopril (Zestril) 20 mg PO BID [facility] Last Admin: 03/28/19 08:04 Dose: 20 mg Loperamide HCl (Imodium) 2 mg PO PRN PRN PRN Reason: Diarrhea/Loose Stools Loratadine (Claritin) 10 mg PO DAILYPRN PRN PRN Reason: Sinus Symptoms Methylprednisolone Sodium Succinate (Solu-Medrol) 40 mg IVP Q6HR [facility] Last Admin: 03/28/19 06:08 Dose: 40 mg Metoprolol Tartrate (Lopressor) 100 mg PO BID [facility] Last Admin: 03/28/19 08:05 Dose: 100 mg Mometasone Furoate/Formoterol Fumar (Dulera 200 Mcg/5 Mcg Inhaler) 2 puff INH BID-RT [facility] Last Admin: 03/28/19 06:56 Dose: 2 puff Ondansetron HCl (Zofran Odt) 4 mg PO Q6H PRN PRN Reason: Nausea/Vomiting Ondansetron HCl (Zofran) 4 mg IVP Q6H PRN PRN Reason: Nausea/Vomiting Senna/Docusate Sodium (Senokot S) 2 tab PO BID PRN PRN Reason: Constipation Sodium Chloride ([place] Nasal [place] 0.65%) 0 ml EA NARE QIDPRN PRN PRN Reason: Nasal Congestion Throat Lozenges (Cepastat Lozenges) 1 paulina PO Q2H PRN PRN Reason: Sore Throat Zolpidem Tartrate (Ambien) 5 mg PO HSPRN PRN PRN Reason: Insomnia
[2019-03-28] MEDS ORDERED: Potassium Chloride 20 MEQ TAB PO SCH (11:30)
[2019-03-28] MEDS: Latanoprost 0.005% Ophth Soln 2.5 ml Bottle EA EYE SCH (20:26)
[2019-03-28] MEDS: Atorvastatin Calcium 20 MG TAB PO SCH (20:27)
[2019-03-28] MEDS: guaiFENesin ER 600 MG TAB PO SCH (20:27)
[2019-03-28] MEDS ORDERED: Clopidogrel Bisulfate 75 MG TAB ONE (22:59)
[2019-03-29] MEDS: methylPREDNISolone Sod Succ 40 MG VIAL IVP SCH ×3 (05:58→17:45)
[2019-03-29 06:04] LABS: #Lymphocytes 0.8 thou/uL (1.20-3.40); #Monocytes 0.8 thou/uL (0.11-0.59); #Neutrophils 7.8 thou/uL (1.40-6.50); %Basophils 0.1 % (0.0-1.0); %Eosinophils 0.4 % (0.0-10.0); %Neutrophils 83.5 % (42.0-75.0); Hemoglobin 11.3 g/dL (12.0-16.0); Mean Corpuscular HGB CONC 29.1 g/dL (32.0-36.0); Mean Corpuscular Hemoglobin 24.6 pg (27.0-31.0); Mean Corpuscular Volume 84.6 fL (78.0-98.0); Mean Platelet Volume 9.4 fL (7.4-10.4); Platelet Count 177 thou/uL (130-400); RBC Distribution Width 15.3 % (11.5-14.5); Red Blood Cell (RBC) Count 4.59 mill/uL (4.20-5.40); White Blood Cell (WBC) Count 9.4 thou/uL (4.8-10.8)
[2019-03-29 06:21] LABS: ALT (SGPT) 11 U/L (8-55); AST (SGOT) 17 U/L (5-34); Albumin 3.4 g/dL (3.4-4.8); Alkaline Phosphatase 82 U/L (40-150); Anion Gap 12 mmol/L (10-20); BUN (Urea Nitrogen) 19 mg/dL (9.8-20.1); Bilirubin, Total Less than 0.2 mg/dL (0.2-1.2); Calc. Creatinine Clearance 101 mL/min (70-130); Calcium 9.4 mg/dL (7.8-10.44); Carbon Dioxide 31 mmol/L (23-31); Chloride 102 mmol/L (98-107); Estimated GFR-MDRD Greater than 90; Globulin 2.6 g/dL (2.4-3.5); Glucose 138 mg/dL (83-110); Potassium 3.8 mmol/L (3.5-5.1); Sodium 141 mmol/L (136-145)
[2019-03-29] MEDS: Mometasone/Formoterol 120 PUFF INHALER INH SCH ×2 (06:53→18:52)
[2019-03-29] MEDS: Aspirin 81 mg Enteric Coated Tablet PO SCH (07:58)
[2019-03-29] MEDS: hydrALAZINE 25 MG TAB PO SCH ×3 (07:58→21:09)
[2019-03-29] MEDS: Furosemide 40 MG TAB PO SCH (07:58)
[2019-03-29] MEDS: cloNIDine 0.2 MG TAB PO SCH ×3 (07:59→21:09)
[2019-03-29] MEDS: guaiFENesin ER 600 MG TAB PO SCH ×2 (07:59→21:09)
[2019-03-29] MEDS: carBAMazepine 200 MG TAB PO SCH ×2 (07:59→21:09)
[2019-03-29] MEDS: Metoprolol Tartrate 100 MG TAB PO SCH ×2 (07:59→21:09)
[2019-03-29] MEDS: Lisinopril 20 MG TAB PO SCH ×2 (07:59→21:09)
[2019-03-29] MEDS: Famotidine 20 MG TAB PO SCH ×2 (07:59→21:08)
--- NOTE | 2019-03-29 12:04 | PDOC.PN ---
- Subjective Encounter Start Date: 03/29/19 Encounter Start Time: 08:00 Patient seen and examined. No new complaints. No overnight events - Objective Resuscitation Status - Order Detail: 03/28/19 01:16 Resuscitation Status Routine Resuscitation Status: FULL: Full Resuscitation MAR Reviewed: Yes Vital Signs & Weight: Vital Signs (12 hours) Temp Pulse Resp BP BP Pulse Ox 03/29/19 11:21 98.0 F 74 16 124/74 94 L 03/29/19 10:48 79 16 95 03/29/19 08:00 98.3 F 93 16 162/84 H 92 L 03/29/19 07:59 148/75 H 03/29/19 07:58 84 148/75 H 03/29/19 06:59 93 L 03/29/19 06:58 77 20 93 L 03/29/19 06:53 77 20 93 L 03/29/19 02:05 16 03/29/19 01:50 94 L Weight Weight 201 lb 1 oz I&O: 03/28/19 03/29/19 03/30/19 06:59 06:59 06:59 Intake Total 870 720 Balance 870 720 Result Diagrams: 03/29/19 05:28 03/29/19 05:28 Phys Exam - Physical Examination Constitutional: NAD HEENT: PERRLA, moist MMs, sclera anicteric Neck: no JVD, supple Respiratory: no rales, wheezing present Cardiovascular: RRR, no significant murmur, no rub Gastrointestinal: soft, non-tender, no distention, positive bowel sounds Musculoskeletal: no edema, pulses present Neurological: non-focal, normal sensation, moves all 4 limbs Lymphatic: no nodes Psychiatric: normal affect, A&O x 3 Skin: no rash, normal turgor Dx/Plan (1) Acute and chronic respiratory failure with hypoxia Code(s): J96.21 - ACUTE AND CHRONIC RESPIRATORY FAILURE WITH HYPOXIA Status: Acute Comment: (2) COPD exacerbation Code(s): J44.1 - CHRONIC OBSTRUCTIVE PULMONARY DISEASE W (ACUTE) EXACERBATION Status: Acute Comment: continue respiratory therapy (3) Chronic stage c diastolic heart failure Code(s): I50.32 - CHRONIC DIASTOLIC (CONGESTIVE) HEART FAILURE Status: Chronic (4) Dyslipidemia Code(s): E78.5 - HYPERLIPIDEMIA, UNSPECIFIED Status: Chronic (5) GERD (gastroesophageal reflux disease) Code(s): K21.9 - GASTRO-ESOPHAGEAL REFLUX DISEASE WITHOUT ESOPHAGITIS Status: Chronic (6) Glaucoma Code(s): H40.9 - UNSPECIFIED GLAUCOMA Status: Chronic (7) HTN (hypertension) Code(s): I10 - ESSENTIAL (PRIMARY) HYPERTENSION Status: Chronic Qualifiers: Comment: (8) Obesity (BMI 30-39.9) Code(s): E66.9 - OBESITY, UNSPECIFIED Status: Chronic (9) Pulmonary hypertension Code(s): I27.20 - PULMONARY HYPERTENSION, UNSPECIFIED Status: Chronic - Plan cont current plan of care, continue antibiotics, respiratory therapy * medication reviewed as below * symptomatic treatment * continue levaquin, solumedrol duoneb, dulera, mucinex * wean off oxygen as tolerated. Review of Systems - Review of Systems ENT: negative: Ear Pain, Ear Discharge, Nose Pain, Nose Discharge, Nose Congestion, Mouth Pain, Mouth Swelling, Throat Pain, Throat Swelling, Other Respiratory: Cough, Shortness of Breath, SOB with Excertion. negative: Dry, Hemoptysis, Pleuritic Pain, Sputum, Wheezing Cardiovascular: negative: chest pain, palpitations, orthopnea, paroxysmal nocturnal dyspnea, edema, light headedness, other Gastrointestinal: negative: Nausea, Vomiting, Abdominal Pain, Diarrhea, Constipation, Melena, Hematochezia, Other Genitourinary: negative: Dysuria, Frequency, Incontinence, Hematuria, Retention , Other Musculoskeletal: negative: Neck Pain, Shoulder Pain, Arm Pain, Back Pain, Hand Pain, Leg Pain, Foot Pain, Other Skin: negative: Rash, Lesions, Cornell, Bruising, Other - Medications/Allergies Allergies/Adverse Reactions: Allergies Allergy/AdvReac Type Severity Reaction Status Date / Time fentanyl Allergy Verified 03/27/19 23:41 hydrocodone bitartrate Allergy Verified 03/27/19 23:41 [From Vicodin] morphine Allergy Verified 03/27/19 23:41 lettuce Allergy Uncoded 12/22/18 14:01 Medications: Current Medications Acetaminophen (Tylenol) 1,000 mg PO Q6H PRN PRN Reason: Mild Pain (1-3) Albuterol/Ipratropium (Duoneb) 3 ml NEB [id number] Last Admin: 03/29/19 10:48 Dose: 3 ml Aspirin (Ecotrin) 81 mg PO DAILY [facility] Last Admin: 03/29/19 07:58 Dose: 81 mg Atorvastatin Calcium (Lipitor) 20 mg PO HS [facility] Last Admin: 03/28/19 20:27 Dose: 20 mg Benzonatate (Tessalon) 100 mg PO Q6H PRN PRN Reason: Cough Bisacodyl (Dulcolax) 10 mg [place] DAILYPRN PRN PRN Reason: Constipation Calcium Carbonate (Tums) 1,000 mg PO Q4H PRN PRN Reason: Heartburn or Indigestion Carbamazepine (Tegretol) 200 mg PO BID [facility] Last Admin: 03/29/19 07:59 Dose: 200 mg Clonidine (Catapres) 0.2 mg PO TID [facility] Last Admin: 03/29/19 07:59 Dose: 0.2 mg Famotidine (Pepcid) 20 mg PO BID [facility] Last Admin: 03/29/19 07:59 Dose: 20 mg Furosemide (Lasix) 40 mg PO DAILY [facility] Last Admin: 03/29/19 07:58 Dose: 40 mg Guaifenesin (Robitussin Sf) 200 mg PO Q4H PRN PRN Reason: Cough Guaifenesin (Mucinex) 600 mg PO Q12HR [facility] Last Admin: 03/29/19 07:59 Dose: 600 mg Hydralazine HCl (Apresoline) 10 mg SLOW IVP Q4H PRN PRN Reason: SBP > 180 and HR < 70 Hydralazine HCl (Apresoline) 50 mg PO TID [facility] Last Admin: 03/29/19 07:58 Dose: 50 mg Levofloxacin 750 mg/ Device 150 mls @ 100 mls/hr IVPB Q24HR [facility] Last Admin: 03/29/19 01:49 Dose: 150 mls Latanoprost (Xalatan 0.005% Ophth Soln) 1 drop EA EYE HS [facility] Last Admin: 03/28/19 20:26 Dose: 1 drop Lisinopril (Zestril) 20 mg PO BID [facility] Last Admin: 03/29/19 07:59 Dose: 20 mg Loperamide HCl (Imodium) 2 mg PO PRN PRN PRN Reason: Diarrhea/Loose Stools Loratadine (Claritin) 10 mg PO DAILYPRN PRN PRN Reason: Sinus Symptoms Methylprednisolone Sodium Succinate (Solu-Medrol) 40 mg IVP Q6HR [facility] Last Admin: 03/29/19 05:58 Dose: 40 mg Metoprolol Tartrate (Lopressor) 100 mg PO BID [facility] Last Admin: 03/29/19 07:59 Dose: 100 mg Mometasone Furoate/Formoterol Fumar (Dulera 200 Mcg/5 Mcg Inhaler) 2 puff INH BID-RT [facility] Last Admin: 03/29/19 06:53 Dose: 2 puff Ondansetron HCl (Zofran Odt) 4 mg PO Q6H PRN PRN Reason: Nausea/Vomiting Ondansetron HCl (Zofran) 4 mg IVP Q6H PRN PRN Reason: Nausea/Vomiting Senna/Docusate Sodium (Senokot S) 2 tab PO BID PRN PRN Reason: Constipation Sodium Chloride ([place] Nasal [place] 0.65%) 0 ml EA NARE QIDPRN PRN PRN Reason: Nasal Congestion Throat Lozenges (Cepastat Lozenges) 1 paulina PO Q2H PRN PRN Reason: Sore Throat Zolpidem Tartrate (Ambien) 5 mg PO HSPRN PRN PRN Reason: Insomnia
--- NOTE | 2019-03-29 15:01 | CON ---
DATE OF CONSULTATION: 03/29/2019 HISTORY OF PRESENT ILLNESS: Ms. Mauro is an 83-year-old female, who I follow as an outpatient. She was on my rounding list today. I was never notified of her admission. She apparently presented to [facility] after several days of shortness of breath. She thought this is triggered by going to [employer] and sitting in a very cold restaurant and then going home and sitting on the front porch. She denies being around any body that has been ill. She denies fever, chills, sweats, or chest pain. She says she is feeling better. PAST MEDICAL HISTORY: Remarkable for: 1. COPD. 2. History of diastolic heart failure. 3. Hypertension. 4. DJD. 5. History of trigeminal neuralgia. 6. Reflux disease. 7. History of femur fracture. 8. History of left femoral head placement. 9. History of normal coronary anatomy in December of this year on catheterization. 10. History of skin cancer. 11. History of breast cyst. 12. History of right total knee replacement. 13. History of an open reduction and internal fixation of right femur fracture. MEDICATIONS: Reviewed. SOCIAL HISTORY: She is a nonsmoker, nondrinker, and nondrug user. ALLERGIES: SHE REPORTS FENTANYL, HYDROCODONE, AND MORPHINE ALLERGIES. FAMILY HISTORY: Negative for lung disease in early age. REVIEW OF SYSTEMS: A 10-point review of systems completed, otherwise negative. PHYSICAL EXAMINATION: GENERAL: She is in no distress with out of bed, converses in complete sentences. VITAL SIGNS: She is afebrile, heart rate 74, respiratory rate 16, oximetry is 94% on 2 L, and blood pressure 124/74. HEENT: Pupils are equal. Sclerae are anicteric. NECK: Supple. No lymphadenopathy. LUNGS: Remarkable for distant breath sounds. She is not wheezing at this time. HEART: Regular rhythm. S1 and S2 are normal. ABDOMEN: Soft and nontender. EXTREMITIES: Without clubbing, cyanosis, or edema. NEUROLOGIC: Nonfocal. LABORATORY DATA: White count 9.4, hemoglobin 11.3, and platelets 177. Electrolytes are normal. Liver enzymes are normal. IMPRESSION: Chronic obstructive pulmonary disease exacerbation, clinically improving. Chest x-ray done in the [facility] on the has been reviewed. There are no infiltrates or mass lesions. If she continues to clinically improve, she will be a candidate for discharge hopefully in the morning. TIME SPENT: This is a 50-minute consult, with greater than 50% of time spent on the unit coordinating care. Job ID: [id number] JANELL
[2019-03-29] MEDS: Atorvastatin Calcium 20 MG TAB PO SCH (21:09)
[2019-03-29] MEDS: Latanoprost 0.005% Ophth Soln 2.5 ml Bottle EA EYE SCH (21:10)
[2019-03-30] MEDS: methylPREDNISolone Sod Succ 40 MG VIAL IVP SCH ×3 (01:09→11:24)
[2019-03-30] MEDS: Mometasone/Formoterol 120 PUFF INHALER INH SCH (06:59)
[2019-03-30] MEDS: hydrALAZINE 25 MG TAB PO SCH ×2 (07:39→14:06)
[2019-03-30] MEDS: Furosemide 40 MG TAB PO SCH (07:39)
[2019-03-30] MEDS: cloNIDine 0.2 MG TAB PO SCH ×2 (07:39→14:06)
[2019-03-30] MEDS: guaiFENesin ER 600 MG TAB PO SCH (07:39)
[2019-03-30] MEDS: Metoprolol Tartrate 100 MG TAB PO SCH (07:39)
[2019-03-30] MEDS: Aspirin 81 mg Enteric Coated Tablet PO SCH (07:39)
[2019-03-30] MEDS: Lisinopril 20 MG TAB PO SCH (07:40)
[2019-03-30] MEDS: carBAMazepine 200 MG TAB PO SCH (07:40)
[2019-03-30] MEDS: Famotidine 20 MG TAB PO SCH (07:40)
--- NOTE | 2019-03-30 11:54 | DIS ---
DATE OF ADMISSION: 03/27/2019 DATE OF DISCHARGE: 03/30/2019 PRIMARY CARE PHYSICIAN: Saleem Tripathi MD. DISCHARGE DISPOSITION: Home. PRIMARY DISCHARGE DIAGNOSES: 1. Acute and chronic respiratory failure with hypoxia. 2. Chronic obstructive pulmonary disease exacerbation. SECONDARY DISCHARGE DIAGNOSES: Pulmonary hypertension, obesity with BMI 36, hypertension, glaucoma, gastroesophageal reflux disease, dyslipidemia, chronic stage C diastolic heart failure, chronic obstructive pulmonary disease, chronic respiratory failure. PRIMARY PROCEDURE/OPERATION: None. RADIOLOGICAL INVESTIGATION: Chest x-ray showed chronic changes without any acute process. SIGNIFICANT LABORATORY DATA: WBC 9.4, hemoglobin 11.3, and platelet 177. Sodium 141, creatinine 0.61. LFT normal. Blood culture negative. DISCHARGE MEDICATIONS: 1. Prednisone 40 mg p.o. daily for 4 days, then 20 mg p.o. daily for 7 days, and then 10 mg p.o. daily for 8 days. 2. Levaquin 500 mg p.o. daily for 4 days. 3. Mucinex 600 mg p.o. b.i.d. for 5 days. Continue following medication as per previous; 1. Ventolin HFA 2 puffs inhalation daily and p.r.n. 2. Aspirin 81 mg daily. 3. Lipitor 20 mg daily at bedtime. 4. Lumigan ophthalmic drops at bedtime. 5. Tegretol 200 mg p.o. b.i.d. 6. Clonidine 0.2 mg p.o. t.i.d. 7. Flovent inhalation b.i.d. 8. Hydralazine 50 mg t.i.d. 9. Lisinopril 20 mg b.i.d. 10. Lopressor 100 mg b.i.d. 11. Fish oil 1 capsule daily. 12. Protonix 40 mg daily. 13. Multivitamin 2 tablet daily. 14. Lasix 40 mg p.o. daily. CONTRAINDICATION: None. CODE STATUS: Full code. INPATIENT MANAGER CONTRACT: Dr. Iglesias was consulted while in hospital. TEST RESULTS PENDING ON DISCHARGE: None. ALLERGIES: FENTANYL, HYDROCODONE, AND MORPHINE. DISCHARGE PLAN: Post hospital, the patient will follow up with primary care physician, Dr. Iglesias as instructed. HOSPITAL COURSE: An 83-year-old female with the above-mentioned medical problem, who was admitted by Dr. Lozano. Please see his H and P for further details. The patient was having upper respiratory symptoms and subsequently the patient's symptoms gotten worse and she started feeling increasing shortness of breath. She was wheezing. She was having cough productive of scant amount of yellowish sputum. Her chest x-ray did not show any pneumonia. She was found with COPD exacerbation. She was hypoxic on admission. This patient has previous history of hypoxic respiratory failure, but her oxygen requirement was turned off by her primary oriental rug stretcher, but during this admission, the patient was hypoxic and even after treatment for COPD exacerbation, she is still hypoxic with saturation 86% on room air. This patient will require home oxygen therapy for her chronic hypoxia and we advised her to use daily basis. This patient is currently euvolemic and she has chronic diastolic heart failure as well. She will continue all her previous medication, prednisone and Levaquin prescription given by Dr. Iglesias today. I have seen and examined the patient at bedside today. REVIEW OF SYSTEMS: All review of systems reviewed with her and negative. PHYSICAL EXAMINATION: VITAL SIGNS: Currently, vital signs stable with a temperature 98.0, blood pressure 122/70, saturation 86% on room air and 93% on 2 L nasal cannula. LUNGS: Clear to auscultation without any rhonchi or rales. CARDIAC: S1, S2. Regular without any murmur. ABDOMEN: Soft and benign. Obesity present. EXTREMITIES: No edema. NEUROLOGIC: Nonfocal examination. Overall, the patient is medically stable for discharge today. Job ID: [id number]
--- NOTE | 2019-03-30 16:24 | PRG ---
DATE OF SERVICE: 03/30/2019 SUBJECTIVE: Ms. Mauro is doing better. She is approaching her baseline. OBJECTIVE: VITAL SIGNS: She is afebrile. Heart rate is 73, respiratory rate 16, oximetry is 92% on 2 L. She is 86% to 87% on room air. Blood pressure 122/71. LUNGS: Clear. HEART: Regular rhythm. ABDOMEN: Soft. EXTREMITIES: Without clubbing, cyanosis, or edema. NEURO: Nonfocal. IMPRESSION: Chronic obstructive pulmonary disease exacerbation, improved. prednisone 40 for 4 days, 20 for 6 days, and 10 for 8 days. She will take 5 more days of Levaquin 500 mg a day p.o. she will need oxygen at 2 L a minute. I will see her back in followup with me in 2 weeks. Job ID: [id number]
[2019-03-30 16:39] VITALS: BP 133/76; TEMP 98.4
== END 2019-03-30 17:30 | disposition home or self-care (01) | DRG 189 ==
LOC: ERS 21:13 → T4-B 23:37
PROVIDERS: ADMIT Family Medicine; ATTEND Family Medicine
DX: J96.21 Acute and chronic respiratory failure with hypoxia (principal); J44.1 Chronic obstructive pulmonary disease with (acute) exacerbation; I50.32 Chronic diastolic (congestive) heart failure; I11.0 Hypertensive heart disease with heart failure; K21.9 Gastro-esophageal reflux disease without esophagitis; M19.90 Unspecified osteoarthritis, unspecified site; E66.01 Morbid (severe) obesity due to excess calories; G50.0 Trigeminal neuralgia; H40.9 Unspecified glaucoma; I27.20 Pulmonary hypertension, unspecified; E78.5 Hyperlipidemia, unspecified; Z96.651 Presence of right artificial knee joint; Z88.5 Allergy status to narcotic agent; Z88.8 Allergy status to other drugs, medicaments and biological substances; Z79.899 Other long term (current) drug therapy; Z68.36 Body mass index [BMI] 36.0-36.9, adult
CPT/HCPCS: 36415; 80048; 80053; 85007; 85025; 85027; 94640; J1956; J2920; J7611; J7620

== ENCOUNTER 2020-12-16 08:19 | Outpatient (CLI) | payer MEDICARE | END 2020-12-16 08:20 | disposition home or self-care (01) | LOC: BICRAD 08:19 | PROVIDERS: ATTEND Internal Medicine Critical Care Medicine | DX: R06.00 Dyspnea, unspecified (principal); S22.050A Wedge compression fracture of T5-T6 vertebra, initial encounter for closed fracture; J90 Pleural effusion, not elsewhere classified; J44.9 Chronic obstructive pulmonary disease, unspecified; R09.89 Other specified symptoms and signs involving the circulatory and respiratory systems; I51.7 Cardiomegaly | CPT/HCPCS: 71046 ==

== ENCOUNTER 2021-03-04 12:20 | Inpatient (IN) | payer MEDICARE ==
[2021-03-04 13:12] LABS: #Eosinphils 0.1 thou/uL (0.0-0.7); #Lymphocytes 0.9 thou/uL (1.20-3.40); #Monocytes 1.1 thou/uL (0.11-0.59); #Neutrophils 15.7 thou/uL (1.40-6.50); %Basophils 0.1 % (0.0-1.0); %Eosinophils 0.7 % (0.0-10.0); %Lymphocytes 4.8 % (21.0-51.0); %Neutrophils 88.4 % (42.0-75.0); Mean Corpuscular HGB CONC 29.9 g/dL (32.0-36.0); Mean Corpuscular Hemoglobin 26.1 pg (27.0-31.0); Mean Corpuscular Volume 87.3 fL (78.0-98.0); Mean Platelet Volume 9.6 fL (7.4-10.4); Platelet Count 191 thou/uL (130-400); RBC Distribution Width 17.1 % (11.5-14.5); Red Blood Cell (RBC) Count 4.97 mill/uL (4.20-5.40); White Blood Cell (WBC) Count 17.8 thou/uL (4.8-10.8)
[2021-03-04 13:29] LABS: ALT (SGPT) 12 U/L (8-55); AST (SGOT) 15 U/L (5-34); Albumin 3.8 g/dL (3.4-4.8); Alkaline Phosphatase 104 U/L (40-110); Anion Gap 10 mmol/L (10-20); BUN (Urea Nitrogen) 9 mg/dL (9.8-20.1); Bilirubin, Total 0.3 mg/dL (0.2-1.2); Calc. Creatinine Clearance 0 mL/min (70-130); Calcium 9.7 mg/dL (7.8-10.44); Carbon Dioxide 34 mmol/L (23-31); Chloride 100 mmol/L (98-107); Globulin 2.8 g/dL (2.4-3.5); Glucose 174 mg/dL (83-110); Potassium 3.9 mmol/L (3.5-5.1); Protein, Total 6.6 g/dL (5.8-8.1); Sodium 140 mmol/L (136-145)
[2021-03-04 13:32] LABS: Hypochromia SLIGHT = 6-15 cells (100X) (0-5/hpf); MDiff Complete? YES; Platelet Morphology Comment Appears Adequate; Polychromasia SLIGHT = 2-3 cells (100X) (0-2/hpf)
[2021-03-04] MEDS ORDERED: methylPREDNISolone Sod Succ/PF 125 MG/2 ML VIAL ONE (14:07)
[2021-03-04] MEDS ORDERED: hydrALAZINE 20 MG/ML VIAL SLOW IVP PRN (16:47)
[2021-03-04] MEDS ORDERED: Furosemide 40 MG/4 ML VIAL ONE (16:53)
[2021-03-04] MEDS ORDERED: Levofloxacin 500 mg/D5W 100 ml Premix Bag ONE (16:53)
[2021-03-04] MEDS ORDERED: hydrALAZINE 20 MG/ML VIAL ONE (16:53)
[2021-03-04] MEDS ORDERED: Guaifenesin DM 100-10/5 ML UDCUP PO PRN (16:55)
[2021-03-04] MEDS ORDERED: Acetaminophen 325 MG TAB PO PRN (16:55)
[2021-03-04] MEDS ORDERED: Bisacodyl 10 MG SUPP PR PRN (16:55)
[2021-03-04] MEDS ORDERED: Senokot S 8.6-50 MG TAB PO PRN (16:55)
[2021-03-04] MEDS ORDERED: Bisacodyl 5 MG TAB PO PRN (16:55)
[2021-03-04] MEDS ORDERED: Ondansetron ODT 4 MG TAB PO PRN (16:55)
[2021-03-04] MEDS ORDERED: Albuterol Sulfate 2.5 mg/3 ml Neb NEB PRN (16:55)
[2021-03-04 16:56] LABS: Actual Bicarbonate (HCO3a) 33.9 mEq/L (22-28); Analyzer IN Cardio ER; Base Excess (BEa) 4.6 mEq/L (-2.0 to +3.0); Calcium, Ionized (arterial) 1.35 mmol/L (1.12-1.30); Carboxyhemoglobin (COHb) 1.3 gm% (0.0-3.0); Hemoglobin (Hb) 14.1 g/dL (12.0-16.0); Potassium - ABG Lab 4.11 mmol/L (3.70-5.30); pH, Arterial 7.28 (7.35-7.45)
[2021-03-04 16:57] LABS: CO2 Tension 73.8 mmHg (35.0-45.0)
[2021-03-04 16:58] LABS: Puncture Site RBA
[2021-03-04 17:23] LABS: Troponin I 0.024 ng/mL (< 0.028)
[2021-03-04 18:07] LABS: SARS-CoV-2 NAA Rapid Test Not Detected (NotDetected)
[2021-03-04 19:15] LABS: Lactic Acid 0.7 mmol/L (0.5-2.2)
[2021-03-04 19:39] LABS: Troponin I 0.022 ng/mL (< 0.028)
[2021-03-04 19:59] VITALS: BMI 38.9
[2021-03-04] MEDS: Piperacillin/Tazobactam 3.375 GM in Sodium Chloride 0.9% 100 ML IVPB SCH (20:50)
[2021-03-04] MEDS: Famotidine 20 MG TAB PO SCH (21:06)
[2021-03-04 22:08] LABS: Actual Bicarbonate (HCO3a) 37.1 mEq/L (22-28); Base Excess (BEa) 9.5 mEq/L (-2.0 to +3.0); Calcium, Ionized (arterial) 1.27 mmol/L (1.12-1.30); Carboxyhemoglobin (COHb) 1.6 gm% (0.0-3.0); Hemoglobin (Hb) 13.8 g/dL (12.0-16.0); O2 Tension (PaO2), arterial 153.7 mmHg (> 60.0); Potassium - ABG Lab 3.53 mmol/L (3.70-5.30); pH, Arterial 7.38 (7.35-7.45)
[2021-03-04 22:09] LABS: CO2 Tension 64.5 mmHg (35.0-45.0); Puncture Site RRA
[2021-03-04 22:10] LABS: ALV-art Gradient 122.175 mmHg (0-20)
[2021-03-04] MEDS: methylPREDNISolone Sod Succ/PF 125 MG/2 ML VIAL IVP SCH (23:20)
[2021-03-05] MEDS ORDERED: hydrALAZINE 20 MG/ML VIAL SLOW IVP PRN ×2 (04:03→16:54)
[2021-03-05 04:07] LABS: ALT (SGPT) 11 U/L (8-55); AST (SGOT) 13 U/L (5-34); Albumin 3.7 g/dL (3.4-4.8); Alkaline Phosphatase 97 U/L (40-110); Anion Gap 11 mmol/L (10-20); BUN (Urea Nitrogen) 12 mg/dL (9.8-20.1); Bilirubin, Total 0.3 mg/dL (0.2-1.2); Calc. Creatinine Clearance 90 mL/min (70-130); Calcium 9.9 mg/dL (7.8-10.44); Carbon Dioxide 33 mmol/L (23-31); Cardiac Risk 2.7 (Less than 4.5); Chloride 99 mmol/L (98-107); Cholesterol 141 mg/dl (< 200 Desired); Globulin 2.9 g/dL (2.4-3.5); Glucose 140 mg/dL (83-110); HDL Cholesterol 53 mg/dL (>60 Neg Risk); LDL Cholesterol, Calculated 66 mg/dL; Potassium 3.9 mmol/L (3.5-5.1); Protein, Total 6.6 g/dL (5.8-8.1); Sodium 139 mmol/L (136-145); Triglycerides 109 mg/dL (Less than 150)
[2021-03-05 04:12] LABS: #Basophils 0.1 thou/uL (0.0-0.2); #Lymphocytes 0.7 thou/uL (1.20-3.40); #Monocytes 0.4 thou/uL (0.11-0.59); #Neutrophils 9.4 thou/uL (1.40-6.50); %Basophils 0.5 % (0.0-1.0); %Eosinophils 0.3 % (0.0-10.0); %Lymphocytes 6.9 % (21.0-51.0); %Monocytes 3.6 % (0.0-10.0); %Neutrophils 88.7 % (42.0-75.0); Hemoglobin 13.6 g/dL (12.0-16.0); Mean Corpuscular HGB CONC 29.9 g/dL (32.0-36.0); Mean Corpuscular Hemoglobin 26.4 pg (27.0-31.0); Mean Corpuscular Volume 88.3 fL (78.0-98.0); Mean Platelet Volume 9.5 fL (7.4-10.4); Platelet Count 193 thou/uL (130-400); Red Blood Cell (RBC) Count 5.17 mill/uL (4.20-5.40); White Blood Cell (WBC) Count 10.6 thou/uL (4.8-10.8)
[2021-03-05] MEDS: Piperacillin/Tazobactam 3.375 GM in Sodium Chloride 0.9% 100 ML IVPB SCH ×3 (05:22→21:01)
[2021-03-05] MEDS: Furosemide 40 MG/4 ML VIAL SLOW IVP SCH ×2 (05:22→15:07)
[2021-03-05] MEDS: methylPREDNISolone Sod Succ/PF 125 MG/2 ML VIAL IVP SCH ×4 (05:22→23:38)
[2021-03-05] MEDS: Enoxaparin Sodium 40 MG/0.4 ML SYRINGE SC SCH (08:03)
[2021-03-05] MEDS: Famotidine 20 MG TAB PO SCH ×2 (08:03→20:59)
[2021-03-05] MEDS ORDERED: Lisinopril 5 MG TAB PO SCH (09:00)
[2021-03-05] MEDS ORDERED: Aspirin Chewable 81 MG TAB PO SCH (09:00)
[2021-03-05] MEDS ORDERED: Polyethylene Glycol 3350 17 GM Packet PO PRN ×2 (10:07→10:36)
[2021-03-05] MEDS ORDERED: cloNIDine 0.2 MG TAB PO SCH ×2 (10:08→10:45)
[2021-03-05] MEDS ORDERED: Non-Formulary Item 1 EACH (Hydralazine Hcl [Hydralazine Hcl] 100 MG Tablet) PO SCH (15:00)
[2021-03-05] MEDS: hydrALAZINE 25 MG TAB PO SCH ×2 (15:06→21:25)
[2021-03-05] MEDS: cloNIDine 0.2 MG TAB PO SCH ×2 (15:06→23:37)
[2021-03-05] MEDS: Fluticasone Propionate HFA 110 MCG AER INH SCH (20:49)
[2021-03-05] MEDS: Atorvastatin Calcium 20 MG TAB PO SCH (20:59)
[2021-03-05] MEDS ORDERED: Fluticasone Propionate HFA 110 MCG AER INH SCH (21:00)
[2021-03-05] MEDS: carBAMazepine 200 MG TAB PO SCH (21:01)
[2021-03-05] MEDS: guaiFENesin ER 600 MG TAB PO SCH (21:01)
[2021-03-05] MEDS: Lisinopril 20 MG TAB PO SCH (22:43)
[2021-03-05] MEDS: Metoprolol Tartrate 100 MG TAB PO SCH (23:04)
[2021-03-06] MEDS: Furosemide 40 MG/4 ML VIAL SLOW IVP SCH ×2 (05:02→13:08)
[2021-03-06] MEDS: methylPREDNISolone Sod Succ/PF 125 MG/2 ML VIAL IVP SCH (05:02)
[2021-03-06] MEDS: Piperacillin/Tazobactam 3.375 GM in Sodium Chloride 0.9% 100 ML IVPB SCH (05:03)
[2021-03-06] MEDS: Fluticasone Propionate HFA 110 MCG AER INH SCH ×2 (07:24→18:59)
[2021-03-06] MEDS: Enoxaparin Sodium 40 MG/0.4 ML SYRINGE SC SCH (09:17)
[2021-03-06] MEDS: Aspirin 81 mg Enteric Coated Tablet PO SCH (09:18)
[2021-03-06] MEDS: cloNIDine 0.2 MG TAB PO SCH ×3 (09:18→22:01)
[2021-03-06] MEDS: Lisinopril 20 MG TAB PO SCH ×2 (09:18→22:03)
[2021-03-06] MEDS: hydrALAZINE 25 MG TAB PO SCH ×3 (09:18→22:02)
[2021-03-06] MEDS: Famotidine 20 MG TAB PO SCH ×2 (09:19→22:03)
[2021-03-06] MEDS: Metoprolol Tartrate 100 MG TAB PO SCH ×3 (09:19→22:08)
[2021-03-06] MEDS: guaiFENesin ER 600 MG TAB PO SCH ×2 (09:19→22:03)
[2021-03-06] MEDS: carBAMazepine 200 MG TAB PO SCH ×2 (09:19→22:02)
[2021-03-06] MEDS: methylPREDNISolone Sod Succ 40 MG VIAL IVP SCH ×3 (13:08→23:44)
[2021-03-06] MEDS: Atorvastatin Calcium 20 MG TAB PO SCH (22:02)
[2021-03-06] MEDS ORDERED: traZODone HCl 50 MG TAB PO SCH (23:30)
[2021-03-07] MEDS: Furosemide 40 MG/4 ML VIAL SLOW IVP SCH ×2 (05:48→16:04)
[2021-03-07] MEDS: methylPREDNISolone Sod Succ 40 MG VIAL IVP SCH ×2 (05:48→12:38)
[2021-03-07] MEDS: Fluticasone Propionate HFA 110 MCG AER INH SCH (07:48)
[2021-03-07 07:54] LABS: Hemoglobin 13.9 g/dL (12.0-16.0); Mean Corpuscular HGB CONC 29.4 g/dL (32.0-36.0); Mean Corpuscular Hemoglobin 25.8 pg (27.0-31.0); Mean Corpuscular Volume 87.8 fL (78.0-98.0); Mean Platelet Volume 9.8 fL (7.4-10.4); Platelet Count 197 thou/uL (130-400); Red Blood Cell (RBC) Count 5.36 mill/uL (4.20-5.40); White Blood Cell (WBC) Count 15.6 thou/uL (4.8-10.8)
[2021-03-07 08:01] LABS: Anion Gap 13 mmol/L (10-20); BUN (Urea Nitrogen) 28 mg/dL (9.8-20.1); Calc. Creatinine Clearance 88 mL/min (70-130); Carbon Dioxide 37 mmol/L (23-31); Chloride 93 mmol/L (98-107); Glucose 148 mg/dL (83-110); Potassium 4.6 mmol/L (3.5-5.1); Sodium 138 mmol/L (136-145)
[2021-03-07 08:20] LABS: #Lymphocytes 0.9 thou/uL (1.20-3.40); #Neutrophils 13.7 thou/uL (1.40-6.50); %Basophils 0.1 % (0.0-1.0); %Eosinophils 0.2 % (0.0-10.0); %Lymphocytes 5.7 % (21.0-51.0); %Monocytes 6.5 % (0.0-10.0); %Neutrophils 87.5 % (42.0-75.0); MDiff Complete? YES; Platelet Morphology Comment Appears Adequate; Polychromasia SLIGHT = 2-3 cells (100X) (0-2/hpf)
[2021-03-07] MEDS: hydrALAZINE 25 MG TAB PO SCH ×3 (09:38→21:33)
[2021-03-07] MEDS: cloNIDine 0.2 MG TAB PO SCH ×3 (09:38→21:35)
[2021-03-07] MEDS: Lisinopril 20 MG TAB PO SCH ×2 (09:38→21:35)
[2021-03-07] MEDS: Aspirin 81 mg Enteric Coated Tablet PO SCH (09:38)
[2021-03-07] MEDS: guaiFENesin ER 600 MG TAB PO SCH ×2 (09:38→21:35)
[2021-03-07] MEDS: Enoxaparin Sodium 40 MG/0.4 ML SYRINGE SC SCH (09:39)
[2021-03-07] MEDS: carBAMazepine 200 MG TAB PO SCH ×2 (09:39→21:34)
[2021-03-07] MEDS: Famotidine 20 MG TAB PO SCH ×2 (09:39→21:32)
[2021-03-07] MEDS: Metoprolol Tartrate 100 MG TAB PO SCH ×2 (09:39→21:34)
[2021-03-07] MEDS: Atorvastatin Calcium 20 MG TAB PO SCH (21:33)
[2021-03-08] MEDS: Furosemide 40 MG/4 ML VIAL SLOW IVP SCH ×2 (05:47→14:29)
[2021-03-08 06:14] LABS: #Eosinphils 0.1 thou/uL (0.0-0.7); #Lymphocytes 2.3 thou/uL (1.20-3.40); #Monocytes 1.5 thou/uL (0.11-0.59); #Neutrophils 8.7 thou/uL (1.40-6.50); %Basophils 0.2 % (0.0-1.0); %Eosinophils 0.5 % (0.0-10.0); %Lymphocytes 18.3 % (21.0-51.0); Hemoglobin 13.1 g/dL (12.0-16.0); Mean Corpuscular HGB CONC 31.5 g/dL (32.0-36.0); Mean Corpuscular Hemoglobin 27.6 pg (27.0-31.0); Mean Corpuscular Volume 87.5 fL (78.0-98.0); Mean Platelet Volume 9.5 fL (7.4-10.4); Platelet Count 214 thou/uL (130-400); RBC Distribution Width 16.6 % (11.5-14.5); Red Blood Cell (RBC) Count 4.77 mill/uL (4.20-5.40); White Blood Cell (WBC) Count 12.6 thou/uL (4.8-10.8)
[2021-03-08] MEDS: Fluticasone Propionate HFA 110 MCG AER INH SCH ×2 (06:41→07:11)
[2021-03-08] MEDS ORDERED: Mometasone 100 MCG/PUFF (1 INHALER) INH SCH (07:00)
[2021-03-08] MEDS: carBAMazepine 200 MG TAB PO SCH ×2 (09:00→21:36)
[2021-03-08] MEDS: Metoprolol Tartrate 100 MG TAB PO SCH ×2 (09:01→21:37)
[2021-03-08] MEDS: hydrALAZINE 25 MG TAB PO SCH ×3 (09:01→21:34)
[2021-03-08] MEDS: Aspirin 81 mg Enteric Coated Tablet PO SCH (09:01)
[2021-03-08] MEDS: Enoxaparin Sodium 40 MG/0.4 ML SYRINGE SC SCH (09:01)
[2021-03-08] MEDS: cloNIDine 0.2 MG TAB PO SCH ×3 (09:02→21:36)
[2021-03-08] MEDS: guaiFENesin ER 600 MG TAB PO SCH ×2 (09:02→21:36)
[2021-03-08] MEDS: Lisinopril 20 MG TAB PO SCH ×2 (09:02→21:35)
[2021-03-08] MEDS: predniSONE 20 MG TAB PO SCH (09:02)
[2021-03-08] MEDS: Mometasone 100 MCG/PUFF (1 INHALER) INH SCH (19:27)
[2021-03-08] MEDS: Atorvastatin Calcium 20 MG TAB PO SCH (21:36)
[2021-03-09] MEDS: Furosemide 40 MG/4 ML VIAL SLOW IVP SCH (05:35)
[2021-03-09] MEDS: Mometasone 100 MCG/PUFF (1 INHALER) INH SCH (06:59)
[2021-03-09] MEDS: Aspirin 81 mg Enteric Coated Tablet PO SCH (07:58)
[2021-03-09] MEDS: hydrALAZINE 25 MG TAB PO SCH ×2 (07:58→14:34)
[2021-03-09] MEDS: guaiFENesin ER 600 MG TAB PO SCH (07:58)
[2021-03-09] MEDS: cloNIDine 0.2 MG TAB PO SCH ×2 (07:58→14:34)
[2021-03-09] MEDS: Metoprolol Tartrate 100 MG TAB PO SCH (07:58)
[2021-03-09] MEDS: predniSONE 20 MG TAB PO SCH (07:59)
[2021-03-09] MEDS: Lisinopril 20 MG TAB PO SCH (07:59)
[2021-03-09] MEDS: carBAMazepine 200 MG TAB PO SCH (07:59)
[2021-03-09] MEDS: Enoxaparin Sodium 40 MG/0.4 ML SYRINGE SC SCH (07:59)
[2021-03-09] MEDS ORDERED: Fish Oil 1,000 MG CAP PO SCH (09:00)
[2021-03-09] MEDS ORDERED: Furosemide 40 MG TAB PO SCH (09:00)
[2021-03-09] MEDS ORDERED: Vit A,C & E/Lutein/Minerals Tablet PO SCH (09:00)
[2021-03-09] MEDS ORDERED: Polyethylene Glycol OPTH DROP 15 ML BOT EA EYE SCH (09:00)
[2021-03-09 14:36] VITALS: BP 121/73
[2021-03-09 14:38] VITALS: TEMP 98.1
[2021-03-09] MEDS ORDERED: Latanoprost 0.005% Ophth Soln 2.5 ml Bottle EA EYE SCH (21:00)
== END 2021-03-09 16:03 | disposition home health service (06) | DRG 871 ==
LOC: ERS 12:20 → SUATTDRO 12:20 → IMCU/EMU 16:55 → T4-A 03-07 15:25
PROVIDERS: ADMIT Family Medicine; ATTEND Internal Medicine
PROC: 5A09357 Assistance with Respiratory Ventilation, Less than 24 Consecutive Hours, Continuous Positive Airway Pressure (ICD-10-PCS; principal; 2021-03-04)
DX: A41.9 Sepsis, unspecified organism (principal); Z20.822 Contact with and (suspected) exposure to COVID-19; J96.21 Acute and chronic respiratory failure with hypoxia; J96.22 Acute and chronic respiratory failure with hypercapnia; I50.33 Acute on chronic diastolic (congestive) heart failure; J18.9 Pneumonia, unspecified organism; J44.1 Chronic obstructive pulmonary disease with (acute) exacerbation; Z68.41 Body mass index [BMI] 40.0-44.9, adult; E87.2 Acidosis; J44.0 Chronic obstructive pulmonary disease with (acute) lower respiratory infection; E78.5 Hyperlipidemia, unspecified; K21.9 Gastro-esophageal reflux disease without esophagitis; I11.0 Hypertensive heart disease with heart failure; I27.20 Pulmonary hypertension, unspecified; E66.01 Morbid (severe) obesity due to excess calories; M19.90 Unspecified osteoarthritis, unspecified site; G50.0 Trigeminal neuralgia; Z96.642 Presence of left artificial hip joint; Z96.651 Presence of right artificial knee joint; R65.20 Severe sepsis without septic shock; Z96.612 Presence of left artificial shoulder joint; Z28.21 Immunization not carried out because of patient refusal; Z88.6 Allergy status to analgesic agent; Z88.4 Allergy status to anesthetic agent; Z88.5 Allergy status to narcotic agent; Z91.018 Allergy to other foods; Z79.899 Other long term (current) drug therapy; Z79.82 Long term (current) use of aspirin; Z79.51 Long term (current) use of inhaled steroids; Z79.52 Long term (current) use of systemic steroids; Z85.828 Personal history of other malignant neoplasm of skin
CPT/HCPCS: 0240U; 36415; 36600; 71045; 80048; 80053; 80061; 82805; 83605; 83880; 84439; 84443; 84484; 85025; 87040; 93005; 93306; 94640; 94660; 94760; 96365; 96375; J0360; J1650; J1940; J1956; J2543; J2920; J2930; J3490; J7512; J7620

== ENCOUNTER 2021-03-10 19:06 | Observation (INO) | payer MEDICARE ==
[2021-03-10 19:43] LABS: #Basophils 0.1 thou/uL (0.0-0.2); #Eosinphils 0.1 thou/uL (0.0-0.7); #Monocytes 1.5 thou/uL (0.11-0.59); #Neutrophils 12.2 thou/uL (1.40-6.50); %Basophils 0.4 % (0.0-1.0); %Eosinophils 0.9 % (0.0-10.0); %Lymphocytes 12.6 % (21.0-51.0); %Monocytes 9.2 % (0.0-10.0); %Neutrophils 76.8 % (42.0-75.0); Hemoglobin 13.7 g/dL (12.0-16.0); Mean Corpuscular HGB CONC 31.5 g/dL (32.0-36.0); Mean Corpuscular Hemoglobin 27.5 pg (27.0-31.0); Mean Corpuscular Volume 87.3 fL (78.0-98.0); Mean Platelet Volume 10.1 fL (7.4-10.4); Platelet Count 210 thou/uL (130-400); RBC Distribution Width 16.6 % (11.5-14.5); Red Blood Cell (RBC) Count 4.98 mill/uL (4.20-5.40); White Blood Cell (WBC) Count 15.9 thou/uL (4.8-10.8)
[2021-03-10] MEDS ORDERED: predniSONE 20 MG TAB ONE (20:10)
[2021-03-10] MEDS ORDERED: Magnesium 2 GM/50 ML BAG (IN WATER) ONE (20:10)
[2021-03-10 20:18] LABS: ALT (SGPT) 14 U/L (8-55); AST (SGOT) 23 U/L (5-34); Albumin 3.6 g/dL (3.4-4.8); Alkaline Phosphatase 69 U/L (40-110); Anion Gap 15 mmol/L (10-20); BUN (Urea Nitrogen) 35 mg/dL (9.8-20.1); Bilirubin, Total 0.2 mg/dL (0.2-1.2); Calc. Creatinine Clearance 0 mL/min (70-130); Calcium 10.3 mg/dL (7.8-10.44); Carbon Dioxide 36 mmol/L (23-31); Chloride 94 mmol/L (98-107); Glucose 120 mg/dL (83-110); Potassium 4.5 mmol/L (3.5-5.1); Protein, Total 6.6 g/dL (5.8-8.1); Sodium 140 mmol/L (136-145)
[2021-03-10 20:29] LABS: CKMB 2.7 ng/mL (0-6.6)
[2021-03-10 23:13] LABS: Troponin I 0.036 ng/mL (< 0.028)
[2021-03-11] MEDS ORDERED: Ondansetron PF 4 MG/2 ML Vial IVP PRN (01:45)
[2021-03-11] MEDS ORDERED: Acetaminophen 325 MG TAB PO PRN ×2 (01:45→02:21)
[2021-03-11] MEDS ORDERED: Ondansetron ODT 4 MG TAB SL PRN (01:45)
[2021-03-11 02:08] LABS: Troponin I 0.021 ng/mL (< 0.028)
[2021-03-11] MEDS ORDERED: Polyethylene Glycol 3350 17 GM Packet PO PRN (02:21)
[2021-03-11] MEDS ORDERED: Albuterol 200 PUFF (6.7GM INHALER) INH PRN (02:31)
[2021-03-11] MEDS ORDERED: ALPHA D GALACTOSIDASE 150 UNIT PO PRN (02:48)
[2021-03-11 05:04] LABS: #Lymphocytes 0.7 thou/uL (1.20-3.40); #Monocytes 0.4 thou/uL (0.11-0.59); #Neutrophils 14.2 thou/uL (1.40-6.50); %Basophils 0.1 % (0.0-1.0); %Eosinophils 0.1 % (0.0-10.0); %Lymphocytes 4.7 % (21.0-51.0); %Monocytes 2.8 % (0.0-10.0); %Neutrophils 92.3 % (42.0-75.0); Hemoglobin 12.9 g/dL (12.0-16.0); Mean Corpuscular HGB CONC 30.5 g/dL (32.0-36.0); Mean Corpuscular Hemoglobin 26.6 pg (27.0-31.0); Mean Corpuscular Volume 87.3 fL (78.0-98.0); Platelet Count 193 thou/uL (130-400); RBC Distribution Width 16.4 % (11.5-14.5); Red Blood Cell (RBC) Count 4.86 mill/uL (4.20-5.40); White Blood Cell (WBC) Count 15.4 thou/uL (4.8-10.8)
[2021-03-11 05:22] LABS: Anion Gap 15 mmol/L (10-20); BUN (Urea Nitrogen) 27 mg/dL (9.8-20.1); Calc. Creatinine Clearance 92 mL/min (70-130); Calcium 10.2 mg/dL (7.8-10.44); Carbon Dioxide 35 mmol/L (23-31); Chloride 94 mmol/L (98-107); Glucose 154 mg/dL (83-110); Potassium 4.6 mmol/L (3.5-5.1); Sodium 139 mmol/L (136-145)
[2021-03-11 05:34] LABS: Troponin I 0.014 ng/mL (< 0.028)
[2021-03-11] MEDS: Mometasone 200 MCG/PUFF (1 INHALER) INH SCH ×2 (08:10→18:41)
[2021-03-11] MEDS: Lisinopril 20 MG TAB PO SCH ×2 (09:18→20:52)
[2021-03-11] MEDS: cloNIDine 0.2 MG TAB PO SCH ×3 (09:18→20:52)
[2021-03-11] MEDS: Aspirin 81 mg Enteric Coated Tablet PO SCH (09:18)
[2021-03-11] MEDS: hydrALAZINE 25 MG TAB PO SCH ×3 (09:18→20:52)
[2021-03-11] MEDS: predniSONE 5 MG TAB PO SCH ×2 (09:18→20:51)
[2021-03-11] MEDS: Furosemide 40 MG TAB PO SCH (09:19)
[2021-03-11] MEDS: carBAMazepine 200 MG TAB PO SCH ×2 (09:19→20:54)
[2021-03-11] MEDS: Fish Oil 1,000 MG CAP PO SCH (09:19)
[2021-03-11] MEDS: guaiFENesin ER 600 MG TAB PO SCH ×2 (09:19→20:52)
[2021-03-11] MEDS: Vit A,C & E/Lutein/Minerals Tablet PO SCH (09:19)
[2021-03-11] MEDS: Heparin 5,000 UNITS/ML VIAL SC SCH ×3 (09:19→20:51)
[2021-03-11] MEDS: Metoprolol Tartrate 100 MG TAB PO SCH ×2 (09:19→20:52)
[2021-03-11] MEDS: Polyethylene Glycol OPTH DROP 15 ML BOT EA EYE SCH (11:21)
[2021-03-11] MEDS: Atorvastatin Calcium 20 MG TAB PO SCH (20:52)
[2021-03-11] MEDS: Latanoprost 0.005% Ophth Soln 2.5 ml Bottle EA EYE SCH (20:55)
[2021-03-12] MEDS: Mometasone 200 MCG/PUFF (1 INHALER) INH SCH ×2 (07:53→19:00)
[2021-03-12] MEDS: Heparin 5,000 UNITS/ML VIAL SC SCH ×3 (08:06→20:37)
[2021-03-12] MEDS: predniSONE 5 MG TAB PO SCH ×2 (08:06→20:35)
[2021-03-12] MEDS: cloNIDine 0.2 MG TAB PO SCH ×3 (08:06→20:36)
[2021-03-12] MEDS: Fish Oil 1,000 MG CAP PO SCH (08:06)
[2021-03-12] MEDS: Metoprolol Tartrate 100 MG TAB PO SCH ×2 (08:07→20:36)
[2021-03-12] MEDS: Vit A,C & E/Lutein/Minerals Tablet PO SCH (08:07)
[2021-03-12] MEDS: hydrALAZINE 25 MG TAB PO SCH ×3 (08:07→20:34)
[2021-03-12] MEDS: Lisinopril 20 MG TAB PO SCH ×2 (08:07→20:36)
[2021-03-12] MEDS: Aspirin 81 mg Enteric Coated Tablet PO SCH (08:07)
[2021-03-12] MEDS: guaiFENesin ER 600 MG TAB PO SCH ×2 (08:08→20:36)
[2021-03-12] MEDS: carBAMazepine 200 MG TAB PO SCH ×2 (08:08→20:36)
[2021-03-12] MEDS: Polyethylene Glycol OPTH DROP 15 ML BOT EA EYE SCH (08:08)
[2021-03-12] MEDS: Furosemide 40 MG TAB PO SCH (08:08)
[2021-03-12] MEDS: Latanoprost 0.005% Ophth Soln 2.5 ml Bottle EA EYE SCH (20:37)
[2021-03-12] MEDS: Atorvastatin Calcium 20 MG TAB PO SCH (20:37)
[2021-03-13] MEDS: Mometasone 200 MCG/PUFF (1 INHALER) INH SCH ×2 (07:30→19:17)
[2021-03-13] MEDS: Metoprolol Tartrate 100 MG TAB PO SCH ×2 (08:43→21:00)
[2021-03-13] MEDS: predniSONE 5 MG TAB PO SCH ×2 (08:43→20:59)
[2021-03-13] MEDS: guaiFENesin ER 600 MG TAB PO SCH ×2 (08:44→21:00)
[2021-03-13] MEDS: hydrALAZINE 25 MG TAB PO SCH ×3 (08:44→20:56)
[2021-03-13] MEDS: Aspirin 81 mg Enteric Coated Tablet PO SCH (08:45)
[2021-03-13] MEDS: Vit A,C & E/Lutein/Minerals Tablet PO SCH (08:45)
[2021-03-13] MEDS: Furosemide 40 MG TAB PO SCH (08:45)
[2021-03-13] MEDS: Lisinopril 20 MG TAB PO SCH ×2 (08:45→21:00)
[2021-03-13] MEDS: Fish Oil 1,000 MG CAP PO SCH (08:45)
[2021-03-13] MEDS: cloNIDine 0.2 MG TAB PO SCH ×3 (08:45→20:56)
[2021-03-13] MEDS: carBAMazepine 200 MG TAB PO SCH ×2 (08:45→20:59)
[2021-03-13] MEDS: Polyethylene Glycol OPTH DROP 15 ML BOT EA EYE SCH (08:46)
[2021-03-13] MEDS: Heparin 5,000 UNITS/ML VIAL SC SCH ×3 (08:51→21:00)
[2021-03-13] MEDS: Latanoprost 0.005% Ophth Soln 2.5 ml Bottle EA EYE SCH (20:57)
[2021-03-13] MEDS: Atorvastatin Calcium 20 MG TAB PO SCH (20:59)
[2021-03-14] MEDS: Mometasone 200 MCG/PUFF (1 INHALER) INH SCH ×2 (07:42→19:54)
[2021-03-14] MEDS: hydrALAZINE 25 MG TAB PO SCH ×3 (08:47→20:29)
[2021-03-14] MEDS: Vit A,C & E/Lutein/Minerals Tablet PO SCH (08:47)
[2021-03-14] MEDS: Aspirin 81 mg Enteric Coated Tablet PO SCH (08:47)
[2021-03-14] MEDS: Fish Oil 1,000 MG CAP PO SCH (08:47)
[2021-03-14] MEDS: cloNIDine 0.2 MG TAB PO SCH ×3 (08:47→20:40)
[2021-03-14] MEDS: carBAMazepine 200 MG TAB PO SCH ×2 (08:47→20:39)
[2021-03-14] MEDS: Heparin 5,000 UNITS/ML VIAL SC SCH ×3 (08:48→20:40)
[2021-03-14] MEDS: predniSONE 5 MG TAB PO SCH ×2 (08:48→20:40)
[2021-03-14] MEDS: Lisinopril 20 MG TAB PO SCH ×2 (08:48→20:39)
[2021-03-14] MEDS: guaiFENesin ER 600 MG TAB PO SCH ×2 (08:48→20:40)
[2021-03-14] MEDS: Metoprolol Tartrate 100 MG TAB PO SCH ×2 (08:48→20:39)
[2021-03-14] MEDS: Furosemide 40 MG TAB PO SCH (08:48)
[2021-03-14] MEDS: Polyethylene Glycol OPTH DROP 15 ML BOT EA EYE SCH (12:07)
[2021-03-14] MEDS: Latanoprost 0.005% Ophth Soln 2.5 ml Bottle EA EYE SCH (20:29)
[2021-03-14] MEDS: Atorvastatin Calcium 20 MG TAB PO SCH (20:40)
[2021-03-15 04:24] LABS: #Eosinphils 0.1 thou/uL (0.0-0.7); #Lymphocytes 1.4 thou/uL (1.20-3.40); #Neutrophils 12.8 thou/uL (1.40-6.50); %Basophils 0.2 % (0.0-1.0); %Eosinophils 0.6 % (0.0-10.0); %Lymphocytes 9.3 % (21.0-51.0); %Monocytes 6.7 % (0.0-10.0); %Neutrophils 83.2 % (42.0-75.0); Hemoglobin 11.7 g/dL (12.0-16.0); Mean Corpuscular HGB CONC 30.6 g/dL (32.0-36.0); Mean Corpuscular Hemoglobin 27.5 pg (27.0-31.0); Mean Corpuscular Volume 90.1 fL (78.0-98.0); Mean Platelet Volume 10.5 fL (7.4-10.4); Platelet Count 172 thou/uL (130-400); RBC Distribution Width 16.1 % (11.5-14.5); Red Blood Cell (RBC) Count 4.26 mill/uL (4.20-5.40); White Blood Cell (WBC) Count 15.4 thou/uL (4.8-10.8)
[2021-03-15 04:33] LABS: BUN (Urea Nitrogen) 25 mg/dL (9.8-20.1); Calc. Creatinine Clearance 98 mL/min (70-130); Calcium 9.7 mg/dL (7.8-10.44); Glucose 149 mg/dL (83-110)
[2021-03-15 04:43] LABS: Anion Gap 24 mmol/L (10-20); Carbon Dioxide 30 mmol/L (23-31); Chloride 95 mmol/L (98-107); Potassium 4.5 mmol/L (3.5-5.1); Sodium 144 mmol/L (136-145)
[2021-03-15] MEDS: Mometasone 200 MCG/PUFF (1 INHALER) INH SCH ×2 (07:40→19:58)
[2021-03-15] MEDS: Polyethylene Glycol OPTH DROP 15 ML BOT EA EYE SCH (09:00)
[2021-03-15] MEDS: Furosemide 40 MG TAB PO SCH (09:24)
[2021-03-15] MEDS: Heparin 5,000 UNITS/ML VIAL SC SCH ×3 (09:32→20:23)
[2021-03-15] MEDS: cloNIDine 0.2 MG TAB PO SCH ×3 (09:32→20:23)
[2021-03-15] MEDS: hydrALAZINE 25 MG TAB PO SCH ×3 (09:34→20:21)
[2021-03-15] MEDS: carBAMazepine 200 MG TAB PO SCH ×2 (09:39→20:21)
[2021-03-15] MEDS: Fish Oil 1,000 MG CAP PO SCH (09:39)
[2021-03-15] MEDS: Lisinopril 20 MG TAB PO SCH ×2 (09:39→20:24)
[2021-03-15] MEDS: guaiFENesin ER 600 MG TAB PO SCH ×2 (09:39→20:21)
[2021-03-15] MEDS: Aspirin 81 mg Enteric Coated Tablet PO SCH (09:39)
[2021-03-15] MEDS: Metoprolol Tartrate 100 MG TAB PO SCH ×2 (09:40→20:21)
[2021-03-15] MEDS: predniSONE 5 MG TAB PO SCH (09:40)
[2021-03-15] MEDS: Vit A,C & E/Lutein/Minerals Tablet PO SCH (09:40)
[2021-03-15] MEDS: Atorvastatin Calcium 20 MG TAB PO SCH (20:21)
[2021-03-15] MEDS: Latanoprost 0.005% Ophth Soln 2.5 ml Bottle EA EYE SCH ×2 (20:25→20:50)
[2021-03-16] MEDS: Mometasone 200 MCG/PUFF (1 INHALER) INH SCH ×2 (08:14→18:28)
[2021-03-16] MEDS: Aspirin 81 mg Enteric Coated Tablet PO SCH (08:18)
[2021-03-16] MEDS: carBAMazepine 200 MG TAB PO SCH ×2 (08:19→19:59)
[2021-03-16] MEDS: Fish Oil 1,000 MG CAP PO SCH (08:20)
[2021-03-16] MEDS: cloNIDine 0.2 MG TAB PO SCH ×3 (08:20→19:59)
[2021-03-16] MEDS: Furosemide 40 MG TAB PO SCH (08:21)
[2021-03-16] MEDS: guaiFENesin ER 600 MG TAB PO SCH ×2 (08:21→20:00)
[2021-03-16] MEDS: hydrALAZINE 25 MG TAB PO SCH ×3 (08:23→19:58)
[2021-03-16] MEDS: Heparin 5,000 UNITS/ML VIAL SC SCH ×3 (08:23→19:56)
[2021-03-16] MEDS: predniSONE 5 MG TAB PO SCH (08:24)
[2021-03-16] MEDS: Metoprolol Tartrate 100 MG TAB PO SCH ×2 (08:24→20:00)
[2021-03-16] MEDS: Lisinopril 20 MG TAB PO SCH ×2 (08:25→19:59)
[2021-03-16] MEDS: Polyethylene Glycol OPTH DROP 15 ML BOT EA EYE SCH (08:26)
[2021-03-16] MEDS: Vit A,C & E/Lutein/Minerals Tablet PO SCH (08:26)
[2021-03-16] MEDS: Benzonatate 100 MG CAP PO SCH ×2 (15:19→19:59)
[2021-03-16] MEDS: Latanoprost 0.005% Ophth Soln 2.5 ml Bottle EA EYE SCH (19:57)
[2021-03-16] MEDS: Atorvastatin Calcium 20 MG TAB PO SCH (19:59)
[2021-03-17] MEDS: Mometasone 200 MCG/PUFF (1 INHALER) INH SCH ×2 (08:03→19:21)
[2021-03-17] MEDS: Aspirin 81 mg Enteric Coated Tablet PO SCH (09:01)
[2021-03-17] MEDS: Furosemide 40 MG TAB PO SCH (09:01)
[2021-03-17] MEDS: Fish Oil 1,000 MG CAP PO SCH (09:01)
[2021-03-17] MEDS: Metoprolol Tartrate 100 MG TAB PO SCH ×2 (09:02→20:51)
[2021-03-17] MEDS: predniSONE 5 MG TAB PO SCH (09:02)
[2021-03-17] MEDS: guaiFENesin ER 600 MG TAB PO SCH ×2 (09:02→20:50)
[2021-03-17] MEDS: cloNIDine 0.2 MG TAB PO SCH ×3 (09:03→20:50)
[2021-03-17] MEDS: Vit A,C & E/Lutein/Minerals Tablet PO SCH (09:03)
[2021-03-17] MEDS: Polyethylene Glycol OPTH DROP 15 ML BOT EA EYE SCH (09:03)
[2021-03-17] MEDS: hydrALAZINE 25 MG TAB PO SCH ×3 (09:03→20:51)
[2021-03-17] MEDS: carBAMazepine 200 MG TAB PO SCH ×2 (09:03→20:50)
[2021-03-17] MEDS: Lisinopril 20 MG TAB PO SCH ×2 (09:04→20:51)
[2021-03-17] MEDS: Heparin 5,000 UNITS/ML VIAL SC SCH ×3 (09:04→20:53)
[2021-03-17] MEDS: Benzonatate 100 MG CAP PO SCH ×3 (09:06→20:50)
[2021-03-17] MEDS: Atorvastatin Calcium 20 MG TAB PO SCH (20:50)
[2021-03-17] MEDS: Latanoprost 0.005% Ophth Soln 2.5 ml Bottle EA EYE SCH (20:51)
[2021-03-18] MEDS: Mometasone 200 MCG/PUFF (1 INHALER) INH SCH ×2 (08:18→20:35)
[2021-03-18] MEDS: Aspirin 81 mg Enteric Coated Tablet PO SCH (10:10)
[2021-03-18] MEDS: predniSONE 5 MG TAB PO SCH (10:11)
[2021-03-18] MEDS: Benzonatate 100 MG CAP PO SCH ×3 (10:11→21:09)
[2021-03-18] MEDS: Fish Oil 1,000 MG CAP PO SCH (10:11)
[2021-03-18] MEDS: guaiFENesin ER 600 MG TAB PO SCH ×2 (10:11→21:09)
[2021-03-18] MEDS: carBAMazepine 200 MG TAB PO SCH ×2 (10:11→21:11)
[2021-03-18] MEDS: Furosemide 40 MG TAB PO SCH (10:11)
[2021-03-18] MEDS: Vit A,C & E/Lutein/Minerals Tablet PO SCH (10:12)
[2021-03-18] MEDS: cloNIDine 0.2 MG TAB PO SCH (10:13)
[2021-03-18] MEDS: Heparin 5,000 UNITS/ML VIAL SC SCH ×3 (10:14→21:13)
[2021-03-18] MEDS: Lisinopril 20 MG TAB PO SCH ×2 (10:14→21:13)
[2021-03-18] MEDS: hydrALAZINE 25 MG TAB PO SCH ×3 (10:14→21:13)
[2021-03-18] MEDS: Metoprolol Tartrate 100 MG TAB PO SCH ×2 (10:15→21:10)
[2021-03-18] MEDS: Polyethylene Glycol OPTH DROP 15 ML BOT EA EYE SCH (10:15)
[2021-03-18] MEDS: Atorvastatin Calcium 20 MG TAB PO SCH (21:11)
[2021-03-18] MEDS: Latanoprost 0.005% Ophth Soln 2.5 ml Bottle EA EYE SCH (21:13)
[2021-03-19] MEDS: Mometasone 200 MCG/PUFF (1 INHALER) INH SCH ×2 (08:33→19:07)
[2021-03-19] MEDS: Furosemide 40 MG TAB PO SCH (08:52)
[2021-03-19] MEDS: Aspirin 81 mg Enteric Coated Tablet PO SCH (08:52)
[2021-03-19] MEDS: Fish Oil 1,000 MG CAP PO SCH (08:52)
[2021-03-19] MEDS: guaiFENesin ER 600 MG TAB PO SCH ×2 (08:53→20:18)
[2021-03-19] MEDS: Polyethylene Glycol OPTH DROP 15 ML BOT EA EYE SCH (09:20)
[2021-03-19] MEDS: carBAMazepine 200 MG TAB PO SCH ×2 (09:28→20:18)
[2021-03-19] MEDS: Benzonatate 100 MG CAP PO SCH ×3 (09:33→20:18)
[2021-03-19] MEDS: predniSONE 5 MG TAB PO SCH (09:35)
[2021-03-19] MEDS: Heparin 5,000 UNITS/ML VIAL SC SCH ×3 (09:36→20:19)
[2021-03-19] MEDS: Vit A,C & E/Lutein/Minerals Tablet PO SCH (09:36)
[2021-03-19] MEDS: Metoprolol Tartrate 100 MG TAB PO SCH ×2 (09:40→20:17)
[2021-03-19] MEDS: hydrALAZINE 25 MG TAB PO SCH ×3 (09:41→20:19)
[2021-03-19] MEDS: Lisinopril 20 MG TAB PO SCH ×2 (09:41→20:19)
[2021-03-19] MEDS: Atorvastatin Calcium 20 MG TAB PO SCH (20:18)
[2021-03-19] MEDS: Latanoprost 0.005% Ophth Soln 2.5 ml Bottle EA EYE SCH (20:19)
[2021-03-20] MEDS: Mometasone 200 MCG/PUFF (1 INHALER) INH SCH ×2 (08:09→18:00)
[2021-03-20] MEDS: Aspirin 81 mg Enteric Coated Tablet PO SCH (10:05)
[2021-03-20] MEDS: carBAMazepine 200 MG TAB PO SCH ×2 (10:05→20:25)
[2021-03-20] MEDS: Benzonatate 100 MG CAP PO SCH ×3 (10:05→20:25)
[2021-03-20] MEDS: Furosemide 40 MG TAB PO SCH (10:06)
[2021-03-20] MEDS: Heparin 5,000 UNITS/ML VIAL SC SCH ×3 (10:06→20:26)
[2021-03-20] MEDS: Fish Oil 1,000 MG CAP PO SCH (10:06)
[2021-03-20] MEDS: guaiFENesin ER 600 MG TAB PO SCH ×2 (10:06→20:25)
[2021-03-20] MEDS: hydrALAZINE 25 MG TAB PO SCH ×3 (10:07→20:26)
[2021-03-20] MEDS: Metoprolol Tartrate 100 MG TAB PO SCH ×2 (10:07→20:25)
[2021-03-20] MEDS: Lisinopril 20 MG TAB PO SCH ×2 (10:07→20:26)
[2021-03-20] MEDS: Vit A,C & E/Lutein/Minerals Tablet PO SCH (10:08)
[2021-03-20] MEDS: Polyethylene Glycol OPTH DROP 15 ML BOT EA EYE SCH (10:09)
[2021-03-20 14:05] VITALS: BMI 40.4
[2021-03-20] MEDS: Latanoprost 0.005% Ophth Soln 2.5 ml Bottle EA EYE SCH (20:25)
[2021-03-20] MEDS: Atorvastatin Calcium 20 MG TAB PO SCH (20:25)
[2021-03-21] MEDS: Mometasone 200 MCG/PUFF (1 INHALER) INH SCH (07:54)
[2021-03-21] MEDS: Polyethylene Glycol OPTH DROP 15 ML BOT EA EYE SCH (09:14)
[2021-03-21] MEDS: guaiFENesin ER 600 MG TAB PO SCH (09:15)
[2021-03-21] MEDS: Aspirin 81 mg Enteric Coated Tablet PO SCH (09:15)
[2021-03-21] MEDS: Lisinopril 20 MG TAB PO SCH (09:15)
[2021-03-21] MEDS: Benzonatate 100 MG CAP PO SCH (09:15)
[2021-03-21] MEDS: Metoprolol Tartrate 100 MG TAB PO SCH (09:15)
[2021-03-21] MEDS: Furosemide 40 MG TAB PO SCH (09:15)
[2021-03-21] MEDS: hydrALAZINE 25 MG TAB PO SCH (09:15)
[2021-03-21] MEDS: carBAMazepine 200 MG TAB PO SCH (09:15)
[2021-03-21] MEDS: Fish Oil 1,000 MG CAP PO SCH (09:15)
[2021-03-21] MEDS: Vit A,C & E/Lutein/Minerals Tablet PO SCH (09:16)
[2021-03-21] MEDS: Heparin 5,000 UNITS/ML VIAL SC SCH (09:21)
[2021-03-21 11:46] VITALS: BP 148/67; TEMP 97.6
== END 2021-03-21 14:43 | disposition critical access hospital (66) ==
LOC: ERS 19:06 → INTOOBSV 21:57 → 2NO 21:57 → ONC 03-13 14:01
PROVIDERS: ADMIT Internal Medicine; ATTEND Internal Medicine
DX: J42 Unspecified chronic bronchitis (principal); J96.21 Acute and chronic respiratory failure with hypoxia; J96.22 Acute and chronic respiratory failure with hypercapnia; K21.9 Gastro-esophageal reflux disease without esophagitis; E78.00 Pure hypercholesterolemia, unspecified; I11.0 Hypertensive heart disease with heart failure; I50.32 Chronic diastolic (congestive) heart failure; R07.89 Other chest pain; I27.20 Pulmonary hypertension, unspecified; I80.8 Phlebitis and thrombophlebitis of other sites; E78.5 Hyperlipidemia, unspecified; G47.33 Obstructive sleep apnea (adult) (pediatric); G50.0 Trigeminal neuralgia; E66.01 Morbid (severe) obesity due to excess calories; Z68.41 Body mass index [BMI] 40.0-44.9, adult; Z79.82 Long term (current) use of aspirin; Z79.51 Long term (current) use of inhaled steroids; Z79.899 Other long term (current) drug therapy; Z88.5 Allergy status to narcotic agent; Z88.8 Allergy status to other drugs, medicaments and biological substances; Z91.018 Allergy to other foods
CPT/HCPCS: 71045; 80048 ×2; 80053; 82553; 83880; 84484 ×4; 85025 ×3; 93005; 94640 ×3; 96365; 96366; 96372 ×10; 97116 ×8; 97139 ×9; 97530; 99285; G0378 ×11; 36415; J1644; J1956; J3475; J7512; J7620

== ENCOUNTER 2023-03-14 21:11 | Inpatient (IN) | payer MEDICARE ==
[2023-03-14 22:03] LABS: Hemoglobin 12.4 g/dL (12.0-16.0); Mean Corpuscular HGB CONC 30.7 g/dL (32.0-36.0); Mean Corpuscular Hemoglobin 28.1 pg (27.0-31.0); Mean Corpuscular Volume 91.4 fl (78.0-98.0); Mean Platelet Volume 11.1 fL (7.4-10.4); Platelet Count 269 10x3/uL (130-400); Red Blood Cell (RBC) Count 4.42 mill/uL (4.20-5.40); White Blood Cell (WBC) Count 47.1 10x3/uL (4.8-10.8)
[2023-03-14 22:05] LABS: Delete Auto Diff?? YES; Manual Diff?? YES
[2023-03-14 22:24] LABS: ALT (SGPT) 15 U/L (8-55); AST (SGOT) 21 U/L (5-34); Albumin 3.1 g/dL (3.4-4.8); Alkaline Phosphatase 274 U/L (40-110); Anion Gap 13 mmol/L (10-20); BUN (Urea Nitrogen) 19 mg/dL (9.8-20.1); Bilirubin, Total 0.4 mg/dL (0.2-1.2); Calc. Creatinine Clearance 0 mL/min (70-130); Carbon Dioxide 23 mmol/L (23-31); Chloride 108 mmol/L (98-107); Estimated GFR 88; Globulin 2.5 g/dL (2.4-3.5); Glucose 160 mg/dL (83-110); Potassium 3.9 mmol/L (3.5-5.1); Protein, Total 5.6 g/dL (5.8-8.1); Sodium 140 mmol/L (136-145)
[2023-03-14 22:30] LABS: Band 8 % (5-11); Burr Cells SLIGHT = 2-5 cells HPF (0-1); CellaVision Operator ID lab.abc; Lymphocytes 1 % (21-51); Monocytes 2 % (0-10); Neutrophil 89 % (42-75); Platelet Adequacy Comment Platelets Normal; Total Cell Count 101
[2023-03-14 22:41] LABS: CKMB 2.9 ng/mL (0-6.6)
[2023-03-14] MEDS ORDERED: Ondansetron ODT 4 MG TAB PO PRN (23:06)
[2023-03-14] MEDS ORDERED: Ondansetron PF 4 MG/2 ML Vial IVP PRN (23:06)
[2023-03-14] MEDS ORDERED: Acetaminophen 325 MG TAB PO PRN (23:06)
[2023-03-14] MEDS ORDERED: Acetaminophen 650 MG Suppository PR PRN (23:06)
[2023-03-14] MEDS ORDERED: Sodium Chloride 0.9% 1,000 ML IV SCH (23:15)
[2023-03-15] MEDS ORDERED: Ipratropium/Albuterol 3 ML NEB NEB PRN (00:23)
[2023-03-15 01:30] LABS: Troponin I 0.083 ng/mL (< 0.028)
[2023-03-15 03:58] LABS: Hemoglobin 11.9 g/dL (12.0-16.0); Mean Corpuscular HGB CONC 31.1 g/dL (32.0-36.0); Mean Corpuscular Hemoglobin 27.9 pg (27.0-31.0); Mean Corpuscular Volume 89.9 fl (78.0-98.0); Mean Platelet Volume 11.7 fL (7.4-10.4); Platelet Count 274 10x3/uL (130-400); RBC Distribution Width 16.2 % (11.5-14.5); Red Blood Cell (RBC) Count 4.26 mill/uL (4.20-5.40); White Blood Cell (WBC) Count 47.1 10x3/uL (4.8-10.8)
[2023-03-15 04:07] LABS: Delete Auto Diff?? YES; Manual Diff?? YES
[2023-03-15 04:33] LABS: Anion Gap 13 mmol/L (10-20); BUN (Urea Nitrogen) 21 mg/dL (9.8-20.1); Calc. Creatinine Clearance 84 mL/min (70-130); Calcium 9.1 mg/dL (7.8-10.44); Carbon Dioxide 26 mmol/L (23-31); Chloride 108 mmol/L (98-107); Estimated GFR 87; Glucose 156 mg/dL (83-110); Potassium 3.9 mmol/L (3.5-5.1); Sodium 143 mmol/L (136-145)
[2023-03-15 04:39] LABS: Troponin I 0.069 ng/mL (< 0.028)
[2023-03-15] MEDS ORDERED: Piperacillin/Tazobactam 3.375 GM in Sodium Chloride 0.9% 100 ML IVPB SCH ×2 (04:52→05:15)
[2023-03-15 04:55] LABS: Band 13 % (5-11); CellaVision Operator ID lab.abc; Monocytes 4 % (0-10); Neutrophil 83 % (42-75); Platelet Adequacy Comment Platelets Normal; RBC Morphology Within Normal Limits; Total Cell Count 101
[2023-03-15] MEDS ORDERED: Heparin 25,000 units/D5W 500 ML IVPB SCH (05:00)
[2023-03-15] MEDS ORDERED: Heparin 10,000 UNITS/ 10 ML VIAL SLOW IVP SCH (05:15)
[2023-03-15] MEDS: Sodium Chloride 0.9% 1,000 ML IV SCH ×3 (05:49→22:03)
[2023-03-15 05:52] LABS: Platelet Count 280 10x3/uL (130-400)
[2023-03-15] MEDS ORDERED: Senokot S 8.6-50 MG TAB PO PRN (07:54)
[2023-03-15] MEDS: Pantoprazole 40 MG VIAL IVP SCH ×2 (08:04→20:46)
[2023-03-15] MEDS: carBAMazepine 200 MG TAB PO SCH (08:55)
[2023-03-15] MEDS: hydrALAZINE 25 MG TAB PO SCH ×3 (08:55→20:49)
[2023-03-15] MEDS: Lisinopril 20 MG TAB PO SCH ×2 (08:55→20:46)
[2023-03-15] MEDS: cloNIDine 0.2 MG TAB PO SCH ×3 (08:55→20:48)
[2023-03-15] MEDS: Piperacillin/Tazobactam 3.375 GM in Sodium Chloride 0.9% 100 ML IVPB SCH ×2 (08:56→18:06)
[2023-03-15] MEDS: Vit A,C & E/Lutein/Minerals Tablet PO SCH (09:03)
[2023-03-15] MEDS: Fish Oil 1,000 MG CAP PO SCH (09:03)
[2023-03-15] MEDS: Artificial Tear Sol 15 ML BOT EA EYE SCH (09:10)
[2023-03-15] MEDS ORDERED: Iopamidol-370 76% 500 ML MDV (1 ML CHARGE) ONE (11:18)
[2023-03-15] MEDS: Ipratropium/Albuterol 3 ML NEB NEB SCH ×4 (11:43→22:48)
[2023-03-15] MEDS: Mometasone 100 MCG HFA INHALER (RT USE) INH SCH (18:57)
[2023-03-15] MEDS: Atorvastatin Calcium 20 MG TAB PO SCH (20:46)
[2023-03-15] MEDS: Latanoprost 0.005% Ophth Soln 2.5 ml Bottle EA EYE SCH (20:46)
[2023-03-16] MEDS: Piperacillin/Tazobactam 3.375 GM in Sodium Chloride 0.9% 100 ML IVPB SCH ×3 (01:01→18:29)
[2023-03-16] MEDS: Ipratropium/Albuterol 3 ML NEB NEB SCH ×6 (02:13→22:18)
[2023-03-16 05:40] LABS: Anion Gap 13 mmol/L (10-20); BUN (Urea Nitrogen) 11 mg/dL (9.8-20.1); Calc. Creatinine Clearance 103 mL/min (70-130); Calcium 8.9 mg/dL (7.8-10.44); Carbon Dioxide 22 mmol/L (23-31); Chloride 109 mmol/L (98-107); Estimated GFR 91; Glucose 138 mg/dL (83-110); Sodium 140 mmol/L (136-145)
[2023-03-16] MEDS: Mometasone 100 MCG HFA INHALER (RT USE) INH SCH ×2 (06:57→18:54)
[2023-03-16 09:02] LABS: Hemoglobin 10.2 g/dL (12.0-16.0); Mean Corpuscular HGB CONC 30.1 g/dL (32.0-36.0); Mean Corpuscular Hemoglobin 27.7 pg (27.0-31.0); Mean Corpuscular Volume 92.1 fl (78.0-98.0); Mean Platelet Volume 11.9 fL (7.4-10.4); Platelet Count 251 10x3/uL (130-400); RBC Distribution Width 16.4 % (11.5-14.5); Red Blood Cell (RBC) Count 3.68 mill/uL (4.20-5.40); White Blood Cell (WBC) Count 37.3 10x3/uL (4.8-10.8)
[2023-03-16 09:05] LABS: Delete Auto Diff?? YES; Manual Diff?? YES
[2023-03-16 09:25] LABS: Band 16 % (5-11); Burr Cells SLIGHT = 2-5 cells HPF (0-1); Hypochromia SLIGHT = 6-15 cells HPF (0-5); Lymphocytes 2 % (21-51); Macrocytosis SLIGHT = 6-15 cells HPF (0-5); Metamyelocyte 1 % (0-0); Myelocyte 1 % (0-0); Neutrophil 80 % (42-75); Platelet Adequacy Comment Platelets Normal; Total Cell Count 101
[2023-03-16] MEDS: hydrALAZINE 25 MG TAB PO SCH ×2 (09:57→15:44)
[2023-03-16] MEDS: carBAMazepine 200 MG TAB PO SCH (09:57)
[2023-03-16] MEDS: Lisinopril 20 MG TAB PO SCH (09:57)
[2023-03-16] MEDS: Vit A,C & E/Lutein/Minerals Tablet PO SCH (09:57)
[2023-03-16] MEDS: Sodium Chloride 0.9% 1,000 ML IV SCH ×2 (09:58→15:44)
[2023-03-16] MEDS: Fish Oil 1,000 MG CAP PO SCH (09:58)
[2023-03-16] MEDS: Pantoprazole 40 MG VIAL IVP SCH ×2 (09:58→20:56)
[2023-03-16] MEDS: cloNIDine 0.2 MG TAB PO SCH ×2 (09:58→15:44)
[2023-03-16] MEDS: Artificial Tear Sol 15 ML BOT EA EYE SCH (09:58)
[2023-03-16] MEDS: Atorvastatin Calcium 20 MG TAB PO SCH (20:55)
[2023-03-16] MEDS: Latanoprost 0.005% Ophth Soln 2.5 ml Bottle EA EYE SCH (20:56)
[2023-03-17] MEDS: Piperacillin/Tazobactam 3.375 GM in Sodium Chloride 0.9% 100 ML IVPB SCH ×3 (01:43→17:46)
[2023-03-17 02:11] LABS: Campy jejuni + coli by PCR Negative (Negative); STEC Shiga Toxin 1+2 Negative (Negative); Salmonella spp. by PCR Negative (Negative); Shigella spp + EIEC by PCR Negative (Negative)
[2023-03-17] MEDS: Ipratropium/Albuterol 3 ML NEB NEB SCH ×6 (02:34→21:49)
[2023-03-17 04:15] LABS: Hemoglobin 9.8 g/dL (12.0-16.0); Mean Corpuscular HGB CONC 31.5 g/dL (32.0-36.0); Mean Corpuscular Hemoglobin 28.1 pg (27.0-31.0); Mean Platelet Volume 12.1 fL (7.4-10.4); Platelet Count 207 10x3/uL (130-400); RBC Distribution Width 16.3 % (11.5-14.5); Red Blood Cell (RBC) Count 3.49 mill/uL (4.20-5.40)
[2023-03-17 04:26] LABS: Delete Auto Diff?? YES; Manual Diff?? YES; Mean Corpuscular Volume 89.1 fl (78.0-98.0)
[2023-03-17 04:37] LABS: Anion Gap 12 mmol/L (10-20); BUN (Urea Nitrogen) 8 mg/dL (9.8-20.1); Calc. Creatinine Clearance 115 mL/min (70-130); Calcium 9.4 mg/dL (7.8-10.44); Carbon Dioxide 28 mmol/L (23-31); Chloride 104 mmol/L (98-107); Estimated GFR 93; Glucose 126 mg/dL (83-110); Potassium 3.5 mmol/L (3.5-5.1); Sodium 140 mmol/L (136-145)
[2023-03-17 05:51] LABS: Burr Cells SLIGHT = 2-5 cells HPF (0-1); CellaVision Operator ID lab.abc; Hypochromia SLIGHT = 6-15 cells HPF (0-5); Lymphocytes 3 % (21-51); Monocytes 1 % (0-10); Neutrophil 96 % (42-75); Platelet Adequacy Comment Platelets Normal; Total Cell Count 100
[2023-03-17] MEDS: Mometasone 100 MCG HFA INHALER (RT USE) INH SCH ×2 (07:52→18:44)
[2023-03-17] MEDS: Lisinopril 5 MG TAB PO SCH (09:53)
[2023-03-17] MEDS: Vit A,C & E/Lutein/Minerals Tablet PO SCH (09:53)
[2023-03-17] MEDS: Fish Oil 1,000 MG CAP PO SCH (09:54)
[2023-03-17] MEDS: Pantoprazole 40 MG VIAL IVP SCH ×2 (09:55→20:39)
[2023-03-17] MEDS: carBAMazepine 200 MG TAB PO SCH (09:57)
[2023-03-17] MEDS: Artificial Tear Sol 15 ML BOT EA EYE SCH (14:23)
[2023-03-17] MEDS: Atorvastatin Calcium 20 MG TAB PO SCH (20:39)
[2023-03-17] MEDS: Apixaban 5 MG TAB PO SCH (20:39)
[2023-03-17] MEDS: Latanoprost 0.005% Ophth Soln 2.5 ml Bottle EA EYE SCH (20:39)
[2023-03-17] MEDS ORDERED: Dicyclomine 20 MG TAB PO SCH (21:15)
[2023-03-18] MEDS: Ipratropium/Albuterol 3 ML NEB NEB SCH ×6 (02:04→22:06)
[2023-03-18] MEDS: Piperacillin/Tazobactam 3.375 GM in Sodium Chloride 0.9% 100 ML IVPB SCH ×3 (02:28→17:57)
[2023-03-18] MEDS: Mometasone 100 MCG HFA INHALER (RT USE) INH SCH ×2 (07:56→18:43)
[2023-03-18 08:03] VITALS: BMI 31.2
[2023-03-18] MEDS: Vit A,C & E/Lutein/Minerals Tablet PO SCH (08:14)
[2023-03-18] MEDS: Fish Oil 1,000 MG CAP PO SCH (08:14)
[2023-03-18] MEDS: Apixaban 5 MG TAB PO SCH ×2 (08:14→20:58)
[2023-03-18] MEDS: Lisinopril 5 MG TAB PO SCH (08:14)
[2023-03-18] MEDS: Pantoprazole 40 MG VIAL IVP SCH ×2 (08:15→20:59)
[2023-03-18] MEDS: carBAMazepine 200 MG TAB PO SCH (08:15)
[2023-03-18] MEDS: Artificial Tear Sol 15 ML BOT EA EYE SCH (11:23)
[2023-03-18 11:46] LABS: #Basophils 0.1 thou/uL (0.0-0.2); #Eosinphils 0.3 thou/uL (0.0-0.7); #Monocytes 0.8 thou/uL (0.11-0.59); #Neutrophils 12.1 thou/uL (1.40-6.50); %Basophils 0.4 % (0.0-1.0); %Eosinophils 1.7 % (0.0-10.0); %Lymphocytes 8.5 % (21.0-51.0); %Monocytes 5.2 % (0.0-10.0); Hemoglobin 9.9 g/dL (12.0-16.0); Mean Corpuscular HGB CONC 31.2 g/dL (32.0-36.0); Mean Corpuscular Volume 89.5 fl (78.0-98.0); Mean Platelet Volume 11.5 fL (7.4-10.4); Platelet Count 211 10x3/uL (130-400); RBC Distribution Width 15.9 % (11.5-14.5); Red Blood Cell (RBC) Count 3.54 mill/uL (4.20-5.40); White Blood Cell (WBC) Count 14.6 10x3/uL (4.8-10.8)
[2023-03-18] MEDS: Atorvastatin Calcium 20 MG TAB PO SCH (20:58)
[2023-03-18] MEDS: Latanoprost 0.005% Ophth Soln 2.5 ml Bottle EA EYE SCH (20:59)
[2023-03-19] MEDS: Piperacillin/Tazobactam 3.375 GM in Sodium Chloride 0.9% 100 ML IVPB SCH ×3 (02:11→11:51)
[2023-03-19] MEDS: Ipratropium/Albuterol 3 ML NEB NEB SCH ×5 (03:05→14:10)
[2023-03-19 05:35] LABS: #Basophils 0.1 thou/uL (0.0-0.2); #Eosinphils 0.2 thou/uL (0.0-0.7); #Monocytes 1.2 thou/uL (0.11-0.59); #Neutrophils 17.1 thou/uL (1.40-6.50); %Basophils 0.4 % (0.0-1.0); %Eosinophils 1.1 % (0.0-10.0); %Lymphocytes 4.7 % (21.0-51.0); %Monocytes 6.1 % (0.0-10.0); Hemoglobin 10.3 g/dL (12.0-16.0); Mean Corpuscular HGB CONC 31.7 g/dL (32.0-36.0); Mean Corpuscular Hemoglobin 28.1 pg (27.0-31.0); Mean Corpuscular Volume 88.8 fl (78.0-98.0); Mean Platelet Volume 11.7 fL (7.4-10.4); Platelet Count 251 10x3/uL (130-400); RBC Distribution Width 15.7 % (11.5-14.5); Red Blood Cell (RBC) Count 3.66 mill/uL (4.20-5.40); White Blood Cell (WBC) Count 19.6 10x3/uL (4.8-10.8)
[2023-03-19 06:01] LABS: Anion Gap 11 mmol/L (10-20); BUN (Urea Nitrogen) 7 mg/dL (9.8-20.1); Calc. Creatinine Clearance 114 mL/min (70-130); Calcium 9.4 mg/dL (7.8-10.44); Carbon Dioxide 30 mmol/L (23-31); Chloride 101 mmol/L (98-107); Estimated GFR 93; Glucose 132 mg/dL (83-110); Potassium 3.4 mmol/L (3.5-5.1); Sodium 139 mmol/L (136-145)
[2023-03-19] MEDS: Mometasone 100 MCG HFA INHALER (RT USE) INH SCH (06:44)
[2023-03-19] MEDS ORDERED: Potassium Chloride 20 MEQ TAB PO SCH (08:00)
[2023-03-19] MEDS: carBAMazepine 200 MG TAB PO SCH (09:26)
[2023-03-19] MEDS: Fish Oil 1,000 MG CAP PO SCH (09:27)
[2023-03-19] MEDS: Lisinopril 5 MG TAB PO SCH (09:27)
[2023-03-19] MEDS: Apixaban 5 MG TAB PO SCH (09:27)
[2023-03-19] MEDS: Vit A,C & E/Lutein/Minerals Tablet PO SCH (09:27)
[2023-03-19] MEDS: Pantoprazole 40 MG VIAL IVP SCH ×2 (09:28→11:51)
[2023-03-19] MEDS: Artificial Tear Sol 15 ML BOT EA EYE SCH (11:49)
[2023-03-19 13:36] VITALS: BP 135/80; TEMP 98.8
== END 2023-03-19 16:08 | DRG 393 ==
LOC: ERS 21:11 → CCU 22:24 → IMCU/EMU 03-15 18:37 → SJJU 03-19 00:15
PROVIDERS: ADMIT Student in an Organized Health Care Education/Training Program; ATTEND Internal Medicine
DX: K55.9 Vascular disorder of intestine, unspecified (principal); I21.A1 Myocardial infarction type 2; J69.0 Pneumonitis due to inhalation of food and vomit; J96.21 Acute and chronic respiratory failure with hypoxia; K92.2 Gastrointestinal hemorrhage, unspecified; J44.1 Chronic obstructive pulmonary disease with (acute) exacerbation; J98.11 Atelectasis; I50.32 Chronic diastolic (congestive) heart failure; D62 Acute posthemorrhagic anemia; Z66 Do not resuscitate; K21.9 Gastro-esophageal reflux disease without esophagitis; E66.01 Morbid (severe) obesity due to excess calories; E78.5 Hyperlipidemia, unspecified; E27.8 Other specified disorders of adrenal gland; I11.0 Hypertensive heart disease with heart failure; L89.152 Pressure ulcer of sacral region, stage 2; I27.20 Pulmonary hypertension, unspecified; Z79.899 Other long term (current) drug therapy; Z88.5 Allergy status to narcotic agent; Z86.711 Personal history of pulmonary embolism; Z79.01 Long term (current) use of anticoagulants; I25.2 Old myocardial infarction; Z91.018 Allergy to other foods; Z88.6 Allergy status to analgesic agent; Z88.8 Allergy status to other drugs, medicaments and biological substances; Z79.82 Long term (current) use of aspirin; Z68.31 Body mass index [BMI] 31.0-31.9, adult
CPT/HCPCS: 36415; 74177; 80048; 82553; 83605; 84484; 85025; 85730; 86850; 86900; 86901; 87324; 87449; 87505; 93005; 94640; C9113; J1644; J2543; J3490; J7050; J7620; Q0162; Q9967